=== PATIENT | female | born 1945 | race Caucasian/White ===

== ENCOUNTER → 2016-10-29 | Outpatient (CLI) | payer BC ==
[~2016-10-29] MED LIST: ACET-1256 PO; CHOL100027 PO; MULT-506 PO; ZCR20
--- NOTE | 2016-10-29 12:36 | MAMMOGRAPHY REPORT ---
BILATERAL DIGITAL SCREENING MAMMOGRAM WITH CAD: 10/29/2016 CLINICAL HISTORY: Routine screening. Patient has no complaints. TECHNIQUE: Bilateral CC and MLO views were obtained. Current study was also evaluated with a Comput er Aided Detection (CAD) system. COMPARISON: Comparison is made to exams dated: 10/26/2015 mammogram, 10/25/2014 mammogram, 10/22/20 13 mammogram, 04/18/2012 ultrasound, 04/10/2010 mammogram - [facility], and 9. BREAST COMPOSITION: There are scattered areas of fibroglandular density in both breasts. FINDINGS: There are stable benign rim calcifications and punctate microcalcifications in the breasts . Stable asymmetry in the lateral left breast. No suspicious mass, architectural distortion or clu ster of suspicious microcalcifications is seen. IMPRESSION: ACR BI-RADS CATEGORY 1: NEGATIVE There is no mammographic evidence of malignancy. A 1 year screening mammogram is recommended. The p atient will receive written notification of the results. Approximately 10% of breast cancers are not detected with mammography. A negative mammographic repor t should not delay biopsy if a clinically suggestive mass is present. Zo Jones M.D. ay/:10/29/2016 11:04:51 Pupil Personnel Services Director: Evita MARSHALL(Rakesh)(Radha)(BD), [facility] letter sent: Normal 1/2 BI-RADS Code: ACR BI-RADS Category 1: Negative
== END | disposition home or self-care (01) ==
LOC: C.MAMM 09:10
PROVIDERS: ATTEND Obstetrics & Gynecology
DX: Z12.31 Encounter for screening mammogram for malignant neoplasm of breast (principal)

== ENCOUNTER → 2016-12-14 | Outpatient (CLI) | payer BC ==
[2016-12-14 14:45] LABS: CHOLESTEROL/HDL RATIO 2.2
== END | disposition home or self-care (01) ==
LOC: C.LABBC 09:35
PROVIDERS: ATTEND Nurse Practitioner Adult Health
DX: E78.00 Pure hypercholesterolemia, unspecified (principal)

== ENCOUNTER → 2016-12-24 | Outpatient (CLI) | payer BC ==
--- NOTE | 2017-01-18 11:17 | CODING QUERY NO DIAGNOSIS ---
TREATMENT RENDERED WITHOUT A DIAGNOSIS DATE OF SERVICE: 12/24/15 To promote full compliance with coding requirements relating to patient care, physician participation is requested in all cases of death surveys coder uncertainty. Please assist us with providing a diagnosis/symptom for the test(s) below: A diagnosis/symptom was not documented on your Order. A valid diagnosis/symptom is required to bill all insurances. Please remember that we are unable to code a diagnosis of rule out, probable, possible, questionable, or suspected. Tests that require a diagnosis: * PAP SMEAR-AUTOMATED SCREENI DIAGNOSIS: Provider Signature: Date: Thank you Smiley Momin Health Information Management Once completed, please kindly fax back to [phone] For questions please call [phone]
== END | disposition home or self-care (01) ==
LOC: C.PAPS 11:49
PROVIDERS: ATTEND Obstetrics & Gynecology
DX: Z12.4 Encounter for screening for malignant neoplasm of cervix (principal)

== ENCOUNTER → 2017-07-30 | Outpatient (CLI) | payer BC ==
--- NOTE | 2017-07-30 14:45 | DIAGNOSTIC IMAGING REPORT ---
Brain MRI WITHOUT CONTRAST HISTORY: R51 [id number] Visual changes [id number] TECHNIQUE: Multiplanar multisequence MRI of the brain was performed without the use of contrast. COMPARISON STUDY: Brain MRI 09/19/2015. FINDINGS: There are no areas of restricted diffusion to suggest acute infarction. The midline structures are intact. Chronic right mastoid effusion, unchanged. Moderate mucosal thickening within the left maxillary sinus with a small fluid level. This has progressed. Mild mucosal thickening within the ethmoid air cells. The left mastoid air cells are clear. The orbits are unremarkable. Mild atrophic changes within the brain. Multiple scattered foci of T2 hyperintensity seen within the white matter of the supratentorial brain. This is nonspecific but favors moderate microvascular ischemic change. This is similar to the prior study. There is no mass, hematoma, midline shift. The major vascular flow-voids at the skull base are well maintained. IMPRESSION: 1. No acute intracranial abnormality. 2. Scattered foci of T2 hyperintensity seen within the periventricular and subcortical white matter are nonspecific but favor microvascular ischemic change. This is not suitably change. 3. Chronic right mastoid effusion, unchanged. 4. Moderate acute on chronic left maxillary sinusitis. Electronically signed by: Brendon Rodríguez M.D. 07/30/2017 2:44 PM Dictated Date/Time: 07/30/2017 2:33 PM
== END | disposition home or self-care (01) ==
LOC: C.MRI 13:37
PROVIDERS: ATTEND Nurse Practitioner Family
DX: R51 Headache (principal); H53.9 Unspecified visual disturbance; J01.01 Acute recurrent maxillary sinusitis

== ENCOUNTER → 2017-09-24 | Outpatient (CLI) | payer BC ==
[2017-09-24 16:56] LABS: BASO % 0.6 %; BASO ABS # 0.05 K/uL (0-0.2); COMPLETE YES; EOS % 2.4 %; HEMATOCRIT 39.2 % (37-47); IG% 0.2 %; LYMPH % 25.8 %; LYMPH ABS # 2.32 K/uL (1.2-3.4); MEAN CELL VOLUME 91.8 fL (80-100); MEAN CORPUSCULAR HEMOGLOBIN 30.7 pg (25-34); MEAN CORPUSCULAR HGB CONC 33.4 g/dl (32-36); MEAN PLATELET VOLUME 10.6 fL (7.4-10.4); MONO % 6.3 %; NEUT % 64.7 %; PLATELET COUNT 280 K/uL (130-400); RED BLOOD COUNT 4.27 M/uL (4.2-5.4); WHITE BLOOD COUNT 8.99 K/uL (4.8-10.8)
[2017-09-24 17:06] LABS: ALT/SGPT 20 U/L (12-78); AST/SGOT 17 U/L (15-37); BLOOD UREA NITROGEN 10 mg/dl (7-18); BUN/CREATININE RATIO 13.2 (10-20); C-REACTIVE PROTEIN 1.27 mg/dl (0-0.29); CALCIUM 8.6 mg/dl (8.5-10.1); CARBON DIOXIDE 28 mmol/L (21-32); CHLORIDE 106 mmol/L (98-107); CREATININE 0.72 mg/dl (0.60-1.20); GLUCOSE 86 mg/dl (70-99); POTASSIUM 3.6 mmol/L (3.5-5.1); SODIUM 141 mmol/L (136-145); URIC ACID 3.5 mg/dl (2.6-7.2)
[2017-09-24 17:16] LABS: ALB/GLOB RATIO 0.9 (0.9-2); ALKALINE PHOSPHATASE 129 U/L (45-117); RHEUMATOID FACTOR < 10.0 U/mL (0-15)
[2017-09-24 17:46] LABS: LYME DISEASE AB IGG NEG (NEG)
[2017-09-24 17:48] LABS: LYME DISEASE AB IGM EQUIVOCAL (NEG)
== END | disposition home or self-care (01) ==
LOC: C.LABBC 14:28
PROVIDERS: ATTEND Nurse Practitioner Family
DX: M25.50 Pain in unspecified joint (principal); E55.9 Vitamin D deficiency, unspecified

== ENCOUNTER → 2017-10-31 | Outpatient (CLI) | payer BC ==
--- NOTE | 2017-11-01 14:37 | MAMMOGRAPHY REPORT ---
BILATERAL DIGITAL SCREENING MAMMOGRAM TOMOSYNTHESIS WITH CAD: 10/31/2017 CLINICAL HISTORY: Routine screening. Patient has no complaints. TECHNIQUE: Breast tomosynthesis in addition to standard 2D mammography was performed. Current study was also evaluated with a Computer Aided Detection (CAD) system. COMPARISON: Comparison is made to exams dated: 10/29/2016 mammogram, 10/26/2015 mammogram, 10/25/2014 mammogram, 10/22/2013 mammogram, 10/20/2012 mammogram, and 04/18/2012 mammogram - [facility]. BREAST COMPOSITION: There are scattered areas of fibroglandular density in both breasts. FINDINGS: No suspicious masses, calcifications, or areas of architectural distortion are noted in ei ther breast. There has been no significant interval change compared to prior exams. Scattered bilater al benign-appearing calcifications are not significantly changed. IMPRESSION: ACR BI-RADS CATEGORY 2: BENIGN There is no mammographic evidence of malignancy. A 1 year screening mammogram is recommended. The pa tient will receive written notification of the results. Approximately 10% of breast cancers are not detected with mammography. A negative mammographic report should not delay biopsy if a clinically suggestive mass is present. Sierra Mattson M.D. /:10/31/2017 12:37:46 Sole Ruffer: Evita GARCIA)Ramana)(BD), [facility] letter sent: Normal 1/2 BI-RADS Code: ACR BI-RADS Category 2: Benign
== END | disposition home or self-care (01) ==
LOC: C.MAMM 09:07
PROVIDERS: ATTEND Nurse Practitioner Family
DX: Z12.31 Encounter for screening mammogram for malignant neoplasm of breast (principal)

== ENCOUNTER → 2017-12-27 | Outpatient (CLI) | payer BC ==
[~2017-12-27] MED LIST changes: -ACET-1256 PO; +ATOR-22 PO; +CHN/1 PO; -ZCR20
== END | disposition home or self-care (01) ==
LOC: C.PAPS 13:04
PROVIDERS: ATTEND Obstetrics & Gynecology
DX: Z00.00 Encounter for general adult medical examination without abnormal findings (principal); N95.8 Other specified menopausal and perimenopausal disorders

== ENCOUNTER → 2018-02-25 | Outpatient (CLI) | payer BC ==
[2018-02-25 11:03] LABS: BASO % 0.5 %; BASO ABS # 0.04 K/uL (0-0.2); EOS % 3.4 %; EOS ABS # 0.25 K/uL (0-0.5); HEMATOCRIT 41.6 % (37-47); IG# 0.01 K/uL (0.00-0.02); LYMPH % 36.2 %; LYMPH ABS # 2.67 K/uL (1.2-3.4); MEAN CELL VOLUME 90.2 fL (80-100); MEAN CORPUSCULAR HEMOGLOBIN 30.4 pg (25-34); MEAN CORPUSCULAR HGB CONC 33.7 g/dl (32-36); MEAN PLATELET VOLUME 10.4 fL (7.4-10.4); MONO % 7.2 %; MONO ABS # 0.53 K/uL (0.11-0.59); NEUT % 52.6 %; NEUT ABS # 3.87 K/uL (1.4-6.5); PLATELET COUNT 319 K/uL (130-400); RED CELL DISTRIBUTION WIDTH CV 14.8 % (11.5-14.5); RED CELL DISTRIBUTION WIDTH SD 48.6 fL (36.4-46.3); WHITE BLOOD COUNT 7.37 K/uL (4.8-10.8)
[2018-02-25 11:38] LABS: ALBUMIN 3.4 gm/dl (3.4-5.0); ALT/SGPT 22 U/L (12-78); AST/SGOT 19 U/L (15-37); BLOOD UREA NITROGEN 11 mg/dl (7-18); CALCIUM 8.4 mg/dl (8.5-10.1); CARBON DIOXIDE 26 mmol/L (21-32); CHOLESTEROL 182 mg/dl (0-200); CREATININE 0.76 mg/dl (0.60-1.20); GLUCOSE 90 mg/dl (70-99); POTASSIUM 3.9 mmol/L (3.5-5.1); SODIUM 141 mmol/L (136-145)
[2018-02-25 11:45] LABS: ALKALINE PHOSPHATASE 119 U/L (45-117); LDL CHOLESTEROL CALCULATED 94 mg/dl; TOTAL PROTEIN 7.1 gm/dl (6.4-8.2)
== END | disposition home or self-care (01) ==
LOC: C.LABBC 08:24
PROVIDERS: ATTEND Nurse Practitioner Family
DX: E78.00 Pure hypercholesterolemia, unspecified (principal); M85.80 Other specified disorders of bone density and structure, unspecified site; R51 Headache; J44.9 Chronic obstructive pulmonary disease, unspecified; E55.9 Vitamin D deficiency, unspecified

== ENCOUNTER → 2018-03-14 | Outpatient (CLI) | payer BC | END | disposition home or self-care (01) | LOC: C.LABBC 09:38 | PROVIDERS: ATTEND Nurse Practitioner Family | DX: M25.50 Pain in unspecified joint (principal) ==

== ENCOUNTER → 2018-05-26 | Outpatient (CLI) | payer BC ==
[~2018-05-26] MED LIST changes: +AMIT25TA9 PO; -ATOR-22 PO; +MELO7.5T6 PO; +OXYC-737 PO
[2018-05-26 16:07] LABS: BASO % 0.4 %; BASO ABS # 0.03 K/uL (0-0.2); EOS % 2.7 %; EOS ABS # 0.19 K/uL (0-0.5); HEMATOCRIT 42.3 % (37-47); HEMOGLOBIN 14.2 g/dL (12.0-16.0); IG# 0.01 K/uL (0.00-0.02); LYMPH % 26.6 %; LYMPH ABS # 1.86 K/uL (1.2-3.4); MEAN CELL VOLUME 91.6 fL (80-100); MEAN CORPUSCULAR HEMOGLOBIN 30.7 pg (25-34); MEAN CORPUSCULAR HGB CONC 33.6 g/dl (32-36); MEAN PLATELET VOLUME 10.1 fL (7.4-10.4); MONO % 7.7 %; MONO ABS # 0.54 K/uL (0.11-0.59); NEUT % 62.5 %; NEUT ABS # 4.36 K/uL (1.4-6.5); PLATELET COUNT 283 K/uL (130-400); RED CELL DISTRIBUTION WIDTH CV 14.6 % (11.5-14.5); RED CELL DISTRIBUTION WIDTH SD 49.4 fL (36.4-46.3); WHITE BLOOD COUNT 6.99 K/uL (4.8-10.8)
[2018-05-26 16:14] LABS: BLOOD UREA NITROGEN 10 mg/dl (7-18); CALCIUM 9.1 mg/dl (8.5-10.1); CARBON DIOXIDE 29 mmol/L (21-32); CREATININE 0.65 mg/dl (0.60-1.20); GLUCOSE 97 mg/dl (70-99); POTASSIUM 4.5 mmol/L (3.5-5.1); SODIUM 139 mmol/L (136-145)
[2018-05-26 16:20] LABS: INR 0.9 (0.9-1.1); PTT PATIENT 26.1 SECONDS (21.0-31.0)
--- NOTE | 2018-05-26 18:09 | DIAGNOSTIC IMAGING REPORT ---
TWO VIEW CHEST CLINICAL HISTORY: Preoperative examination. FINDINGS: PA and lateral chest radiographs are compared to study dated 06/18/2015. The cardiomediastinal silhouette is unremarkable noting atherosclerotic calcification of the thoracic aorta. The lungs and pleural spaces are clear. There is no pneumothorax. The skeletal structures are osteopenic. The bony thorax appears intact. IMPRESSION: No active disease in the chest. Electronically signed by: Luis Ireland M.D. 05/26/2018 6:07 PM Dictated Date/Time: 05/26/2018 6:07 PM
== END | disposition home or self-care (01) ==
LOC: C.RAD 12:00
PROVIDERS: ATTEND Orthopaedic Surgery Sports Medicine
DX: Z01.812 Encounter for preprocedural laboratory examination (principal); Z01.810 Encounter for preprocedural cardiovascular examination

== ENCOUNTER 2018-06-19 05:01 | Inpatient (IN) | payer BC, OTHER ==
[2018-05-26 07:32] VITALS: BMI 27.0
[2018-05-26 15:12] VITALS: BMI 27.0
--- NOTE | 2018-05-26 15:21 | PAT Medication Instructions ---
Service Date May 26, 2018. Current Home Medication List Amitriptyline Hcl (Elavil), 25 MG PO HS Cholecalciferol (Vitamin D 1000 Unit), 2,000 INTER.UNIT PO QAM Meloxicam (Mobic), 7.5 MG PO BID Multivitamin (Multivitamin), 1 TAB PO QAM Varenicline (Chantix), 1 MG PO DIRECTED Medication Instructions For Your Scheduled Surgery - Hold the following medications 10 days prior to surgery: Meloxicam (Mobic), 7.5 MG PO BID - Hold the following medications the morning of surgery: Cholecalciferol (Vitamin D 1000 Unit), 2,000 INTER.UNIT PO QAM Multivitamin (Multivitamin), 1 TAB PO QAM Varenicline (Chantix), 1 MG PO DIRECTED (if still taking) - Take the following medications as scheduled the night before surgery--THEN NOTHING TO EAT OR DRINK AFTER MIDNIGHT: Amitriptyline Hcl (Elavil), 25 MG PO HS If you have any questions please call us at [phone] or [phone] or [phone]
--- NOTE | 2018-06-10 14:52 | HISTORY & PHYSICAL EXAMINATION ---
DATE OF ADMISSION: 06/19/2018 CHIEF COMPLAINT: Left persistent hip and groin pain. HISTORY OF PRESENT ILLNESS: A 73-year-old white female referred by my partner Dr. Duque and Elisa for surgical treatment of her left hip. She has a several-month history of markedly increasing left hip pain and discomfort. She describes lateral hip pain, groin pain and thigh pain. She has been through extensive conservative treatment including multiple different anti-inflammatories as well as an intraarticular hip joint injection provided just very temporary relief. Over the past several months, she has had more and more trouble with weightbearing. The more she walks, the more it hurts. She was initially seen by Dr. Duque who referred to Dr. Pérez for possible spine etiology. He did not feel this is coming from her spine and felt it was more coming from her hip. She now would like to proceed with definitive treatment. She does have a history of multiple joint aches and pains and been on Mobic with minimal relief. PAST MEDICAL HISTORY: 1. Arthritis. 2. History of smoking, on Chantix. PAST SURGICAL HISTORY: Include: 1. Bilateral ovarian resection. 2. Septoplasty. ALLERGIES: MORPHINE, CIPRO, ERYTHROMYCIN. CURRENT MEDICINES: 1. Mobic 75 mg twice a day. 2. Amitriptyline 25 mg. 3. Oxycodone p.r.n. 4. Chantix. 5. Multivitamin. 6. Vitamin D. 7. Vitamin C. SOCIAL HISTORY: A 73-year-old female. She is from [place]. She is . She does have a smoking history and is on Chantix. FAMILY HISTORY: Noncontributory. REVIEW OF SYSTEMS: Negative for diabetes, neurologic problems, vascular problems, or bleeding disorders. No chest pain, no shortness of breath. No history of DVT or PE. PHYSICAL EXAMINATION: GENERAL: Reveals a pleasant, middle-aged female. Looks to be in pretty good health. HEENT: Benign. NECK: Supple. No lymphadenopathy. LUNGS: Clear to auscultation. HEART: Has a regular rate and rhythm. ABDOMEN: Soft, nontender, nondistended. EXTREMITIES: Grossly neurovascularly intact except as follows: Examination of left hip and leg reveals patient walks with an antalgic gait. Leg lengths clinically appear pretty equal. She does have significant pain with any attempted hip internal rotation. Minimal pain with external rotation. Negative straight leg raise. She is neurologically intact. X-RAYS: X-ray of left hip was reviewed. It shows a moderately advanced hip arthritis. She still has a little bit of superior joint space remaining. She does have some slight cystic changes in the acetabulum and osteophytes of the lateral aspect of the femoral head. ASSESSMENT: A 73-year-old female with several-month history of increasing left hip pain and discomfort, unresponsive to conservative treatment. She does have moderate hip arthritis and appears like a lot of this pain is coming from her hip. I certainly cannot be certain of that. She has failed conservative treatment. PLAN: We discussed treatment options and she would like to have her left hip replaced. We will take her to the operating room and do a left total hip replacement. The risks and benefits of this procedure was explained to the patient including but not limited to DVT, PE, , infection, neurological injury, vascular injury, bleeding problem, pain, limited range of motion, stiffness, failure to relieve symptoms, incomplete relief of symptoms, need for further surgery in the future, fracture, leg length inequality, nerve palsy, and incomplete relief of symptoms. Patient understands and desires to proceed. Informed consent was obtained. As far as discharge plans, she is planning to be discharged to home with some home health. She knows to hold her Mobic beforehand. She is a smoker, so she might need a patch in the hospital. I will see her back in 2 weeks postop.
[2018-06-19] VITALS (26 sets, daily range): BP systolic 116–169; BP diastolic 70–83; PULSE 80–101; TEMP 35.7–37.5; O2SAT 94–100; Ht 162.6 cm; Wt 72.3 kg
[~2018-06-19] VITALS: Ht 162.6 cm; Wt 72.3 kg
[~2018-06-19 05:01] MED LIST changes: -OXYC-737 PO
[2018-06-19] MEDS ORDERED: ACETAMINOPHEN 500 MG TAB PO SCH (06:00)
[2018-06-19] MEDS ORDERED: LACTATED RINGER'S 1000ML 500 ML IV SCH (06:00)
[2018-06-19] MEDS ORDERED: METOCLOPRAMIDE HCL 10 MG TAB PO SCH (06:00)
[2018-06-19] MEDS ORDERED: FAMOTIDINE 20 MG TAB PO SCH (06:00)
[2018-06-19] MEDS ORDERED: LACTATED RINGER'S 1000ML IV SCH (06:00)
[2018-06-19] MEDS ORDERED: LACTATED RINGER'S 1000ML 1,000 ML IV SCH (06:00)
[2018-06-19] MEDS ORDERED: CEFAZOLIN 2000MG IV PUSH 15 ML IV SCH (06:00)
[2018-06-19] MEDS ORDERED: TRANEXAMIC ACID INJ 1,000 MG x 1 Bag Intra-Op IV SCH ×2 (06:00)
[2018-06-19] MEDS ORDERED: GABAPENTIN 300 MG CAP PO SCH (06:00)
[2018-06-19] MEDS ORDERED: BUPIVACAINE/EPINEPHRINE 0.5% MPF 1:200,000 30 ML VIAL ONE (06:26)
[2018-06-19] MEDS ORDERED: BACITRACIN 50000 UNIT VIAL ONE (06:26)
[2018-06-19] MEDS ORDERED: BUPIVACAINE 0.5 % 5 MG/1 ML PF 10ML VIAL ONE (06:34)
[2018-06-19] MEDS ORDERED: PROPOFOL IV EMULSION 10 MG/ML 20 ML VIAL ONE ×2 (06:42→07:55)
[2018-06-19] MEDS ORDERED: FENTANYL CITRATE INJ 50 MCG/1 ML 2 ML VIAL ONE (06:43)
[2018-06-19] MEDS ORDERED: MIDAZOLAM HCL 1 MG/ML 2ML VIAL ONE (06:43)
[2018-06-19] MEDS ORDERED: MoRPHine SULFATE PF 1 MG/ML 10 ML AMP/VIAL ONE (06:44)
[2018-06-19] MEDS ORDERED: SCOPOLAMINE 1.5 MG TDSY TD ONE ×2 (06:48→07:15)
--- NOTE | 2018-06-19 06:52 | History & Physical Bridge Note ---
H&P Re-Evaluation Bridge Note: I have examined the patient, reviewed the History & Physical and in the interval since the performance of the History & Physical I have noted the following changes of clinical significance: No changes noted
[2018-06-19] MEDS ORDERED: LACTATED RINGER'S 1000ML 500 ML IV PRN (07:11)
[2018-06-19] MEDS ORDERED: NALOXONE HCL INJ 1 MG in SODIUM CHLORIDE 0.9% 1000ML 1,000 ML IV PRN ×4 (07:11)
[2018-06-19] MEDS ORDERED: SODIUM CHLORIDE 0.9% 1000ML 1,000 ML IV PRN (07:11)
[2018-06-19] MEDS ORDERED: NALOXONE HCL INJ 0.08 MG in SYRINGE 1.8 ML IV PRN (07:11)
[2018-06-19] MEDS ORDERED: NALBUPHINE HCL INJ 10 MG/ML 1ML AMP IV PRN (07:15)
[2018-06-19] MEDS ORDERED: KETOROLAC TROMETHAMINE 30 MG/ML VIAL IV. PRN (07:15)
[2018-06-19] MEDS ORDERED: DiphenhydrAMINE HCL 50 MG/ML VIAL IV PRN (07:15)
[2018-06-19] MEDS ORDERED: ATROPINE SULFATE 0.1 MG/ML 5ML SYR IV PRN (07:15)
[2018-06-19] MEDS ORDERED: MoRPHine SULFATE PF 1 MG/ML 10 ML AMP/VIAL EPI PRN (07:15)
[2018-06-19] MEDS ORDERED: PHENYLEPHRINE 100MCG/ML 5ML SYR IV PRN (07:15)
[2018-06-19] MEDS ORDERED: EpHEDrine SULFATE INJ 50 MG/ML AMP IV PRN ×2 (07:15)
[2018-06-19] MEDS ORDERED: PROMETHAZINE HCL INJ 6.25 MG in SODIUM CHLORIDE 0.9% 50ML 50 ML IV PRN (07:15)
[2018-06-19] MEDS ORDERED: ONDANSETRON INJ 2 MG/ML 2 ML VIAL IV PRN ×3 (07:15→08:30)
[2018-06-19] MEDS ORDERED: NALOXONE HCL 0.4 MG/1 ML VIAL/CARP IV PRN (07:15)
[2018-06-19] MEDS ORDERED: NO NARCOTICS OR SEDATIVES SCH (07:15)
[2018-06-19] MEDS ORDERED: MEPERIDINE HCL 25 MG/ML CARP IV PRN ×2 (07:15)
[2018-06-19] MEDS ORDERED: KETOROLAC TROMETHAMINE 15 MG/ML VIAL IV. PRN (07:15)
[2018-06-19] MEDS ORDERED: ONDANSETRON INJ 2 MG/ML 2 ML VIAL ONE (07:56)
--- NOTE | 2018-06-19 08:18 | [facility] Post Operative Brief Note ---
Immediate Operative Summary Operative Date Jun 19, 2018. Pre-Operative Diagnosis Left Hip Osteoarthritis Post-Operative Diagnosis same as preop Procedure(s) Performed Left Total Hip Arthroplasty Uncemented Surgeon Dr. Bosch [facility] [employer] Surgeon(s) Javier Mckeon PA-C Estimated Blood Loss 200 ml Findings Consistent with Post-Op Diagnosis Fluids (cc crystalloids) 1800 cc Specimens A. Left Femoral Head Anesthesia Type Spinal MAC Complication(s) none Disposition Accompanied Pt To Recover: yes Disposition: Recovery Room / PACU Overlapping Procedure I was present for: the critical portions of procedure. I was immediately available: during the entire case
[2018-06-19] MEDS ORDERED: SILVER SULFADIAZINE 1% CR 50 GM JAR EXT PRN (08:30)
[2018-06-19] MEDS ORDERED: MAGNESIUM HYDROXIDE SUSP 30 ML UDC PO PRN (08:30)
[2018-06-19] MEDS ORDERED: BISACODYL 10 MG SUPP PR PRN (08:30)
[2018-06-19] MEDS ORDERED: METOCLOPRAMIDE HCL INJ 5 MG/ML 2 ML VIAL IV PRN (08:30)
[2018-06-19] MEDS ORDERED: OXYCODONE HCL IR 5 MG TAB (IMMEDIATE RELEASE) PO PRN (08:30)
[2018-06-19] MEDS ORDERED: ZOLPIDEM TARTRATE 5 MG TAB PO PRN (08:30)
[2018-06-19] MEDS ORDERED: HYDROmorphone INJ 0.5 MG/0.5 ML SYR IV PRN (08:30)
[2018-06-19] MEDS ORDERED: ALUMINUM/MAGNESIUM/SIMETH (MAALOX MAX) 30 ML UDC PO PRN (08:30)
[2018-06-19] MEDS ORDERED: MULTIVITAMIN TAB PO SCH (09:00)
--- NOTE | 2018-06-19 09:14 | DIAGNOSTIC IMAGING REPORT ---
L PELVIS/UNILATERAL HIP 1 VIEW CLINICAL HISTORY: Postoperative evaluation. COMPARISON: Left hip radiograph June 11, 2018. FINDINGS: Alignment of the total left hip arthroplasty is anatomic. There is no fracture or unexpected radiopaque foreign body. [address] are in place. There are skin josefina. IMPRESSION: Expected findings following total left hip arthroplasty. Electronically signed by: Sherif Ramirez M.D. 06/19/2018 9:13 AM Dictated Date/Time: 06/19/2018 9:13 AM
--- NOTE | 2018-06-19 10:09 | Anesthesiology Progress Note ---
Anesthesia Post Op Note Date & Time Jun 19, 2018 at 10:09 Vital Signs Pain Intensity: 0 Vital Signs Past 12 Hours Date Time Temp Pulse Resp B/P (MAP) Pulse Ox O2 Delivery O2 Flow Rate FiO2 06/19/18 09:55 99 Nasal Cannula 2.0 06/19/18 09:49 86 17 145/82 (103) 100 Nasal Cannula 2.0 06/19/18 09:20 36.4 88 18 116/70 (85) 99 Nasal Cannula 2.0 06/19/18 09:20 18 99 06/19/18 09:07 86 22 99 06/19/18 09:07 86 22 06/19/18 09:05 129/58 06/19/18 09:02 85 14 100 06/19/18 09:02 84 14 06/19/18 09:00 115/57 06/19/18 08:58 36.5 97 Nasal Cannula 2 06/19/18 08:57 82 16 99 06/19/18 08:57 83 16 06/19/18 08:56 82 17 99 06/19/18 08:56 83 17 06/19/18 08:55 107/76 06/19/18 08:51 87 20 100 06/19/18 08:51 88 20 06/19/18 08:50 115/73 06/19/18 08:46 90 13 06/19/18 08:46 91 13 127/62 99 06/19/18 08:41 85 14 06/19/18 08:41 85 14 100 06/19/18 08:40 84 12 06/19/18 08:40 85 12 125/72 100 06/19/18 08:35 88 15 06/19/18 08:35 89 15 123/56 100 06/19/18 08:30 90 16 128/54 100 06/19/18 08:30 90 16 06/19/18 08:25 97 17 109/58 100 06/19/18 08:25 96 17 06/19/18 08:20 36.2 92 16 108/50 99 Oxymask 10 06/19/18 08:20 92 12 06/19/18 08:20 92 12 108/50 99 06/19/18 05:33 36.5 83 20 169/83 97 Room Air Notes Mental Status: alert / awake / arousable, participated in evaluation Pt Amnestic to Procedure: Yes Nausea / Vomiting: adequately controlled Pain: adequately controlled Airway Patency, RR, SpO2: stable & adequate BP & HR: stable & adequate Hydration State: stable & adequate Anesthetic Complications: no major complications apparent
[2018-06-19] MEDS: DOCUSATE SODIUM 100 MG CAP PO SCH ×2 (10:32→21:14)
[2018-06-19] MEDS: D5W AND 1/2NSS + 20MEQ KCL 1,000 ML IV SCH ×2 (10:32→20:35)
[2018-06-19] MEDS: PANTOprazole SOD 40 MG TAB PO SCH (10:33)
[2018-06-19] MEDS: MULTIVITAMIN TAB PO SCH (10:33)
[2018-06-19] MEDS: ASPIRIN 81 MG ECTAB PO SCH ×2 (10:33→21:13)
[2018-06-19] MEDS: CHOLECALCIFEROL 1000 INTER.UNIT TAB PO SCH (10:34)
[2018-06-19] MEDS: KETOROLAC TROMETHAMINE 15 MG/ML VIAL IV. SCH ×3 (10:43→21:15)
[2018-06-19] MEDS ORDERED: VARENICLINE (CHANTIX) 1 MG TAB PO ONE (12:15)
[2018-06-19] MEDS: FERROUS GLUCONATE 324 MG TAB PO SCH ×2 (12:30→17:40)
[2018-06-19] MEDS: ACETAMINOPHEN 500 MG TAB PO SCH ×2 (13:57→21:15)
[2018-06-19] MEDS ORDERED: TRANEXAMIC ACID INJ 1,000 MG in SODIUM CHLORIDE 0.9% 100ML 100 ML IV ONE (14:15)
[2018-06-19] MEDS: CEFAZOLIN IV 1,000 MG in SYRINGE 0 ML IV SCH ×2 (14:21→21:18)
[2018-06-19] MEDS ORDERED: CEFAZOLIN IV 1,000 MG in DEXTROSE 5% 50ML 50 ML IV SCH (15:00)
--- NOTE | 2018-06-19 15:29 | PROGRESS NOTE ---
DATE: 06/19/2018 SUBJECTIVE: A 73-year-old female postop from a left hip replacement. She is doing well. Minimal pain. No chest pain or shortness of breath. Feeling a little bit nauseated. OBJECTIVE: VITAL SIGNS: Temperature 36.3. Stable. GENERAL: Reveals a pleasant, middle-aged female. She is sitting up on bed and looks reasonably comfortable. I did wake her when I went in the room this afternoon. LUNGS: Clear to auscultation. HEART: Regular rate and rhythm. ABDOMEN: Soft, nontender, nondistended. EXTREMITIES: Grossly neurovascularly intact except as follows: Examination of the left lower extremity reveals the leg lengths to be equal. Hip is located. Dressing is clean, dry and intact. The thigh is soft and supple. She can dorsiflex and plantarflex her foot appropriately. X-RAYS: X-ray of the left hip from recovery room reviewed. Shows a left uncemented total hip arthroplasty. Components looked to be in good position. No signs of problems. ASSESSMENT: A 73-year-old female postop from a left hip replacement, doing well. Her pain is controlled. Hip is located. She is neurologically intact. PLAN: 1. DVT prophylaxis including thigh-high TEDs, SCDs, and aspirin twice a day. 2. PT/OT. Weight bear as tolerated. Left total hip protocol. 3. Pain control, doing well with current pain regimen. 4. IV antibiotics x24 hours. 5. Disposition: Plan to discharge to home with some home health once adequately recovered.
[2018-06-19] MEDS: CHECK SCOPOLAMINE PATCH PLACEMENT SCH (16:29)
--- NOTE | 2018-06-19 17:08 | OPERATIVE REPORT ---
DATE OF OPERATION: 06/19/2018 SURGEON: Anshul Bosch MD PUMP STITCHER: LIZ Dunham PREOPERATIVE DIAGNOSIS: Left hip degenerative joint disease. POSTOPERATIVE DIAGNOSIS: Same. PROCEDURE PERFORMED: Left uncemented ceramic on highly cross-linked polyethylene total hip arthroplasty. COMPLICATIONS: None. ESTIMATED BLOOD LOSS: 200 mL. FLUID REPLACEMENT: 1800 mL crystalloid. ANESTHESIA: Spinal. DRAINS: None. SPECIMENS: Left femoral head sent for pathology. OPERATIVE INDICATIONS: Patient is a 73-year-old female who has had about a 6-month history of markedly increased left hip pain and discomfort associated with progressive loss of her joint space on x-ray. She was seen by my partner, Dr. Duque as well as my spine partner, Dr. Pérez. We thought all of her pain was coming from her hip. She had an intraarticular hip joint injection, which provided her temporary relief. She failed all conservative care. She elected to proceed with a total hip arthroplasty. OPERATIVE FINDINGS: Noted advanced hip arthritis. She did have a grade 4 disease. Not much eburnation and not any major osteophytes. She did have a significant joint effusion. There are no signs of infection. OPERATIVE IMPLANTS: Consisted of: 1. Biomet G7 size 50 mm acetabular shell. 2. 6.5 cancellous acetabular screws, 1 at 35 mm length and 1 at 20 mm in length. 3. An apex hole eliminator. 4. Highly cross-linked polyethylene liner with 50 mm outer diameter and 32 mm inner diameter. 5. DePuy size 11 KLA Corail femoral stem. 6. A +5/32 mm ceramic articular ball. OPERATIVE PROCEDURE: Patient was taken to the operating room, identified, and placed on the operating table in supine position. All contact areas were appropriately padded. IV antibiotics provided by anesthesia team. A spinal anesthetic had been implemented in the holding area. Ernst catheter was placed in sterile fashion. The patient was then placed in the right lateral decubitus position. An axillary roll was placed. [facility] hip positioner was used for positioning. The left hip and leg were then prepped and draped in the usual sterile fashion. A posterolateral approach to the left hip was then performed through a curvilinear incision centered over the greater trochanter. Sharp dissection was carried down through subcutaneous tissues down to the level of the IT band and gluteal fascia. The IT band and gluteal fascia were incised longitudinally in line with skin incisions. The underlying greater trochanteric bursa was excised. The piriformis and external rotators were tagged and taken off the posterior aspect of the hip joint capsule. Great care was taken throughout the procedure to protect the sciatic nerve at all times. Posterior capsulotomy was then performed leaving a large flap for later repair. Hip was internally rotated and dislocated. Femoral neck osteotomy cut was made with the final cut at about 4 mm above the lesser trochanter. Femoral head was removed and sent for pathology. She did have a large hip joint effusion. The femur was retracted anteriorly. Attention was then drawn to the acetabulum. The acetabulum labrum was excised. The pulvinar fat was excised. Sequential reaming of the acetabulum was then performed beginning with a size 43 and progressing up to 49. A 50 mm Biomet G7 acetabular shell was then placed in about 40 degrees of lateral opening and 20 degrees of anteversion. It was fixed with two 6.5 cancellous acetabular screws. A trial liner was placed. Attention was then drawn to the femur. The proximal femur was entered with Innov[employer] cutter followed by a canal finder. I then broached beginning with a size 7 and progressing up to an 11 until we got excellent fit at 11. A calcar reamer was used to smoothen off the calcar. I then trialed the hip, and the +5 articular ball provided full stability, full extension and external rotation, flexion to 90 degrees, internal rotation to over 70 degrees. Leg lengths seemed appropriate, and soft tissue tension seemed appropriate. I elected to place these implants. All trial implants removed. An apex hole eliminator was placed. A highly cross-linked polyethylene liner was placed. A DePuy Corail size 11 KLA/coxa vara femoral stem was impacted in position. A +5/32 mm ceramic articular ball was placed. Hip was located and once again found to be stable. Attention was then drawn toward closing. The wound was irrigated with copious amounts of pulsatile lavage solution. I did inject locally with 60 mL of 0.5% Marcaine with epinephrine. The posterior capsule and external rotators were repaired through drill holes in the posterior trochanter with #2 Ti-Cron suture. The IT band and gluteal fascia were then closed with #1 PDS suture in running fashion. The subcutaneous tissue was then closed with 2 layers, the deep layer with #1 Vicryl suture and subcutaneous tissues with 2-0 Dexon suture in a buried interrupted fashion. The skin was closed with skin josefina. Leg was then cleaned and dried and a sterile dressing with Xeroform, 4x4, sterile ABD pad, and foam tape was applied. The patient was then transferred to the recovery room in stable condition. The patient tolerated the procedure well, and there were no complications. All needle and sponge counts were correct at the end of the operation. I attest to the content of the Intraoperative Record and any orders documented therein. Any exception s are noted below.
[2018-06-19] MEDS: AMITRIPTYLINE HCL 25 MG TAB PO SCH (21:14)
[2018-06-19] MEDS: SENNA 8.6 MG TAB PO SCH (21:14)
[2018-06-19] MEDS: VARENICLINE (CHANTIX) 1 MG TAB PO SCH (21:14)
[2018-06-20] VITALS (7 sets, daily range): BP systolic 113–132; BP diastolic 68–74; PULSE 72–93; TEMP 36.9–37.6; O2SAT 92–96
[2018-06-20] MEDS ORDERED: DC INTRASPINAL MORPHINE ONE
[2018-06-20] MEDS: CHECK SCOPOLAMINE PATCH PLACEMENT SCH ×3 (00:15→16:02)
[2018-06-20] MEDS: KETOROLAC TROMETHAMINE 15 MG/ML VIAL IV. SCH ×4 (03:32→21:27)
[2018-06-20] MEDS: ACETAMINOPHEN 500 MG TAB PO SCH ×3 (05:37→21:28)
[2018-06-20 06:36] LABS: CALCIUM 8.2 mg/dl (8.5-10.1); CREATININE 0.61 mg/dl (0.60-1.20); POTASSIUM 3.8 mmol/L (3.5-5.1)
[2018-06-20 06:42] LABS: MEAN CORPUSCULAR HGB CONC 33.8 g/dl (32-36)
[2018-06-20] MEDS: D5W AND 1/2NSS + 20MEQ KCL 1,000 ML IV SCH (06:44)
[2018-06-20 07:07] LABS: HEMATOCRIT 33.3 % (37-47); HEMOGLOBIN 11.1 g/dL (12.0-16.0); MEAN CELL VOLUME 90.2 fL (80-100); MEAN CORPUSCULAR HEMOGLOBIN 30.1 pg (25-34); MEAN PLATELET VOLUME 10.9 fL (7.4-10.4); PLATELET COUNT 204 K/uL (130-400); RED CELL DISTRIBUTION WIDTH CV 14.1 % (11.5-14.5); RED CELL DISTRIBUTION WIDTH SD 46.9 fL (36.4-46.3); WHITE BLOOD COUNT 10.33 K/uL (4.8-10.8)
[2018-06-20 07:10] LABS: BASO % 0.2 %; BASO ABS # 0.02 K/uL (0-0.2); EOS % 0.7 %; EOS ABS # 0.07 K/uL (0-0.5); IG# 0.03 K/uL (0.00-0.02); LYMPH % 13.3 %; LYMPH ABS # 1.37 K/uL (1.2-3.4); MONO % 8.9 %; MONO ABS # 0.92 K/uL (0.11-0.59); NEUT % 76.6 %; NEUT ABS # 7.92 K/uL (1.4-6.5)
[2018-06-20] MEDS ORDERED: RXC5 PO (07:46)
[2018-06-20] MEDS ORDERED: ACET-24 PO (07:46)
[2018-06-20] MEDS ORDERED: ASPI-461 PO (07:46)
--- NOTE | 2018-06-20 07:47 | Discharge Instructions ---
Discharge Instructions Date of Service Jun 20, 2018. Admission Reason for Admission: Left Hip Degenerative Joint Disease Discharge Discharge Diagnosis / Problem: Left Hip Replacement Discharge Goals Goal(s): Decrease discomfort, Improve function, Increase independence, Improve disease control, Therapeutic intervention Activity Recommendations Activity Limitations: per Instructions/Follow-up section Weightbearing Status: Left weightbearing . Instructions / Follow-Up Instructions / Follow-Up ACTIVITY RECOMMENDATIONS: Physical Therapy: * Aggressive physical therapy is not usually needed. You will learn to take care of yourself safely and walk. * Follow the "Hip Precautions Instructions." * In some cases, the social media marketing analyst at the hospital will arrange to have a therapist come to your house for the first couple of weeks to help you learn these skills. * You need to practice on your own or with the help of a family member as needed. * When you learn these skills, most of the therapy can be done on your own. Home Exercise: * You were shown a series of exercises in the hospital. Do these exercises three to four times each day including the exercises you were shown in physical therapy. Walking: * Get up and walk several times each day. For the first four weeks, try not to stand or walk for more than one hour at a time. If you do stand or walk for more than one hour, you will not hurt anything, but your leg will likely swell. * As you feel comfortable, you may change from the walker or crutches to a cane and then to independent walking. MEDICATIONS: New Medicine: * You will likely be taking one or more of these medicines: 1. Oxycodone - Take, as directed, when you need it, every four to six hours to control your pain. 2. Aspirin - Thins your blood to lessen the chance of forming a blood clot. * The most common side effects of pain medicine and iron are nausea and constipation. If nausea or constipation is too much of a problem or if you have any questions about your new medicines or doses, call [facility] at . We will try to help you manage these issues. VERY IMPORTANT TO READ AND REVIEW" Pain: * The immediate post-operative period after hip replacement surgery is often quite painful. * You are given a prescription for pain medicine. You should take it, as directed, when you need it, especially before physical therapy and before going to bed. Pain that interferes with sleep is very common and can last several months. * You will likely need pain medicine for the first two to four weeks. It will not stop all of the pain. The pain will lessen and as you feel better, you may change to milder pain medicine such as Tylenol. * The most common side effects of pain medicine are nausea and constipation, so don't take more than you need. SPECIAL CARE INSTRUCTIONS: TEDs/Elastic Stockings: * The white elastic stockings help limit swelling and prevent blood clots from forming in your legs. The more you wear them, the more they work. * Wear them for six weeks. Prevention of Infection: * Take antibiotics one hour before any dental cleaning, dental work, urological procedure, gastrointestinal procedure or any invasive surgery in order to prevent your new joint from getting infected. * You may get the antibiotics from the doctor performing the procedure or you may call our office at before and we will call in a prescription to the pharmacy of your choice. Things to Watch For: * Drainage from the incision site that occurs more than one week after your surgery. * Severely increased leg pain or swelling. * Increased redness at the incision site. * Fever above 102 degrees Fahrenheit. * Unusual chest pain or shortness of breath. * Unusual pain or burning with urination. Call [facility] at with any of the above problems or if you have any questions about your medicines or recovery. FOLLOW UP VISIT: Make an appointment to see your doctor for approximately two weeks after surgery for a progress check and staple removal by calling the office at . Current Hospital Diet Patient's current hospital diet: Regular Diet Discharge Diet Recommended Diet: Regular Diet Procedures Procedures Performed: Left Total Hip Arthroplasty Uncemented Pending Studies Studies pending at discharge: no Medical Emergencies . Who to Call and When: Medical Emergencies: If at any time you feel your situation is an emergency, please call [phone] immediately. . Non-Emergent Contact Non-Emergency issues call your: Surgeon . "Provider Documentation" section prepared by Anshul Bosch. .
--- NOTE | 2018-06-20 08:05 | PROGRESS NOTE ---
DATE: 06/20/2018 SUBJECTIVE: A 73-year-old female postop day 1 from a left hip replacement. She is doing well. Pretty minimal pain. Had a good night sleep and rest. No chest pain or shortness of breath. Not feeling dizzy or lightheaded. OBJECTIVE: VITAL SIGNS: Temperature 36.9. Vital signs stable. GENERAL: Reveals a pleasant elderly female. She is sitting up in bed and talking to a friend. She looks comfortable. EXTREMITIES: Examination of left hip reveals the leg lengths to be equal. Hip is located. Thigh is soft and supple. NEUROLOGIC: She is neurologically intact. Patient can dorsiflex and plantarflex her foot appropriately. LABORATORY DATA: Hemoglobin 11.1. Hematocrit 33.3. Electrolytes are stable. ASSESSMENT: A 73-year-old female postoperative day 1 from a left hip replacement, doing well. Pain controlled. Hip is located. She is neurologically intact. PLAN: 1. DVT prophylaxis including thigh-high TEDs, SCDs and aspirin twice a day. 2. PT/OT. Weightbear as tolerated. Left total hip protocol. 3. Pain control, doing well with current pain regimen. 4. Disposition: She is planning to be discharged to home with some home health once adequately recovered.
[2018-06-20] MEDS: DOCUSATE SODIUM 100 MG CAP PO SCH ×2 (08:35→21:25)
[2018-06-20] MEDS: VARENICLINE (CHANTIX) 1 MG TAB PO SCH ×2 (08:36→21:25)
[2018-06-20] MEDS: MULTIVITAMIN TAB PO SCH (08:36)
[2018-06-20] MEDS: PANTOprazole SOD 40 MG TAB PO SCH (08:36)
[2018-06-20] MEDS: CHOLECALCIFEROL 1000 INTER.UNIT TAB PO SCH (08:36)
[2018-06-20] MEDS: FERROUS GLUCONATE 324 MG TAB PO SCH ×3 (08:36→17:45)
[2018-06-20] MEDS: ASPIRIN 81 MG ECTAB PO SCH ×2 (08:36→21:24)
[2018-06-20] MEDS: TAPENTADOL ER 50 MG TABCR PO SCH ×3 (08:38→21:27)
[2018-06-20] MEDS: SENNA 8.6 MG TAB PO SCH (21:25)
[2018-06-20] MEDS: AMITRIPTYLINE HCL 25 MG TAB PO SCH (21:26)
[2018-06-21] MEDS: CHECK SCOPOLAMINE PATCH PLACEMENT SCH (00:10)
[2018-06-21] MEDS: KETOROLAC TROMETHAMINE 15 MG/ML VIAL IV. SCH (03:45)
[2018-06-21] MEDS: ACETAMINOPHEN 500 MG TAB PO SCH (05:28)
[2018-06-21 06:02] VITALS: BP 121/69; PULSE 85; TEMP 36.9; O2SAT 94
[2018-06-21 07:59] VITALS: BP 160/70; PULSE 76; TEMP 37.2
[2018-06-21] MEDS: FERROUS GLUCONATE 324 MG TAB PO SCH (08:30)
--- NOTE | 2018-06-21 08:38 | PROGRESS NOTE ---
DATE: 06/21/2018 SUBJECTIVE: A 73-year-old female postop day 2 from a left hip replacement. She is doing well. Pain has been controlled. No chest pain or shortness of breath. Therapy went pretty well. Not feeling dizzy or lightheaded. OBJECTIVE: VITAL SIGNS: Temperature 36.9. Vital signs stable. GENERAL: This is a pleasant elderly female. Patient is lying in bed, looks pretty comfortable. EXTREMITIES: Examination of left hip reveals the leg lengths to be equal. Hip is located. Incision is clean, dry and intact. Thigh is soft and supple. She is neurologically intact. ASSESSMENT: A 73-year-old female postoperative day 2 from left hip replacement, doing well. Her pain is controlled. Hip is located. She is neurologically intact. PLAN: 1. DVT prophylaxis including thigh-high TEDs, SCDs and aspirin twice a day. 2. PT/OT. Weightbear as tolerated. Left total hip protocol. 3. Pain control, doing well with current pain regimen. 4. Disposition: Plan to discharge to home with some home health later today.
[2018-06-21] MEDS: DOCUSATE SODIUM 100 MG CAP PO SCH (08:51)
[2018-06-21] MEDS: PANTOprazole SOD 40 MG TAB PO SCH (08:53)
[2018-06-21] MEDS: VARENICLINE (CHANTIX) 1 MG TAB PO SCH (08:53)
[2018-06-21] MEDS: MULTIVITAMIN TAB PO SCH (08:53)
[2018-06-21] MEDS: CHOLECALCIFEROL 1000 INTER.UNIT TAB PO SCH (08:53)
[2018-06-21] MEDS: ASPIRIN 81 MG ECTAB PO SCH (08:53)
[2018-06-21] MEDS: TAPENTADOL ER 50 MG TABCR PO SCH (08:59)
[2018-06-21 09:10] VITALS: BP 160/70; PULSE 76; TEMP 37.2; O2SAT 94
--- NOTE | 2018-06-25 21:19 | DISCHARGE SUMMARY ---
ADMITTING PHYSICIAN AND SURGEON: Anshul Bosch MD ADMITTING DIAGNOSIS: Left hip degenerative joint disease. SURGERY PERFORMED: Left total hip arthroplasty. SECONDARY DIAGNOSES: Arthritis. History of smoking. CONSULTS: None obtained. HISTORY AND PHYSICAL EXAMINATION: Well documented in the patient's chart. HOSPITAL COURSE: The patient admitted 06/19/2018, underwent total hip arthroplasty, tolerated the procedure well. There were no complications. She was transferred to the PACU postoperatively and later to the orthopedic for further care. She was given Ancef for antibiotic prophylaxis, SHANAE stockings, SCDs and aspirin for DVT prophylaxis. Hemoglobin, hematocrit, and vital signs were monitored during her hospital stay and remained stable. There were no complications. By postoperative day 2, she was tolerating a regular diet. Pain was controlled with oral pain medicine. She was participating in physical therapy. Postop day 2, she was discharged home, set up with home health services. She was given printed discharge instructions including new prescriptions for extra strength Tylenol, aspirin, and oxycodone. Continue her home medicines. Continue physical therapy, weightbearing as tolerated, SHANAE stockings, total hip precautions. Follow up approximately 2 weeks postoperatively or sooner if any problems or concerns.
== END 2018-06-21 10:26 | disposition home health service (06) | DRG 470 ==
LOC: C.ACU 05:01 → C.3E 06:40 → ENRESERV 08:46
PROVIDERS: ADMIT Orthopaedic Surgery Sports Medicine; ATTEND Orthopaedic Surgery Sports Medicine
PROC: 0SRB04A Replacement of Left Hip Joint with Ceramic on Polyethylene Synthetic Substitute, Uncemented, Open Approach (ICD-10-PCS; principal; 2018-06-19 07:00)
DX: M16.12 Unilateral primary osteoarthritis, left hip (principal); Z87.891 Personal history of nicotine dependence; Z88.5 Allergy status to narcotic agent; Z88.1 Allergy status to other antibiotic agents

== ENCOUNTER 2021-09-19 06:40 | Observation (INO) ==
--- NOTE | 2021-07-11 15:17 | Anesthesiology Consultation ---
Date of Service July 11, 2021 Assessment & Plan (1) Encounter for pre-operative examination: Chart Review Chart Review: Acceptable Risk for Surgery (pending preop Covid testing results ) and Patient NOT seen in Pre Admission Testing -Will leave to anesthesiologist discretion if repeat CXR needed (last CXR done 07/2020- pt had Covid at time of CXR- pt tolerated left TKA without issues) Per nursing assessment 07/11/2021, patient denies any recent travel. No known Covid infection in the past 90 days. Patient is vaccinated for Covid. No known Covid positive contacts or Covid related symptoms. Preop Covid testing scheduled 07/12/21= will await results Left TKA 12/30/20= done under SAB at L3 with 1 attempt. No anesthesia issues noted per anesthesia record History Surgery Operation Date: 07/14/21 09:00 Proposed Procedures p Right Total Knee Replacement(Right) - Anshul Bosch MD Height/Weight Height: 5 ft 3.5 in Weight: 81.193 kg Allergies Allergy/AdvReac Type Severity Reaction Status Date / Time Cipro Allergy Severe muscle Verified 06/19/18 07:31 reaction ciprofloxacin Allergy Severe lower Verified 07/11/21 10:18 extremity weakness erythromycin base AdvReac Mild nausea Verified 07/11/21 10:18 levofloxacin AdvReac Mild metal Verified 07/11/21 10:18 taste in mouth morphine AdvReac Mild vomiting Verified 07/11/21 10:18 Medications Home Medications Medication Instructions Recorded Confirmed Last Taken acetaminophen 500 mg tablet 1,000 mg PO Q8H PRN tab 04/09/19 07/11/21 12/29/20 21:30 calcium carbonate 600 mg calcium 600 mg PO Q OTHER DAY tab 04/09/19 07/11/21 12/29/20 09:00 (1,500 mg) tablet multivitamin 1 tab PO QAM 04/09/19 07/11/21 12/29/20 09:00 cholecalciferol (vitamin D3) 125 2,000 units PO QAM 10/13/19 07/11/21 12/29/20 09:00 mcg (5,000 unit) capsule diclofenac sodium 1 % topical gel 4 gm TOP QID PRN 10/12/20 07/11/21 12/23/20 (Voltaren) meloxicam 7.5 mg tablet (Mobic) 7.5 mg PO BID #180 tab 10/17/20 07/11/21 12/23/20 amitriptyline 25 mg tablet 25 mg PO HS #90 tab 05/16/21 07/11/21 Unknown amino acids (Amino Acid) 2 cap PO TID 07/11/21 07/11/21 Unknown Past Medical History Medical History Cervical facet joint syndrome Hx injections/nerve burnings (07/13/20) History of COVID-19 06/2020 -- no problems at present time Hypercholesterolemia Interstitial cystitis controlled, no recent issues Osteoarthritis Past Family History Family History Sister Breast cancer Father Colorectal cancer, Onset Age: 66 Mother Cardiac disorder Denies family history of Ovarian cancer Prostate cancer Myocardial infarction Past Surgical History Surgical History H/O breast biopsy BENIGN History of appendectomy History of cataract surgery RT/LEFT History of colonoscopy History of cystoscopy History of dilation and curettage History of endoscopic sinus surgery History of hysteroscopy History of surgery ovarian wedge resection History of tooth extraction History of total hip replacement Left CELIO: 06/19/18: SAB x1 attempt at L3-L4 at [facility] S/P knee replacement 12/30/20 Dr. Anshul Bosch at [facility]- Left TKR Social History Smoking Status: Former smoker tobacco type: cigarettes Do You Dip or Chew Tobacco: No Smoking End Date: quit 2017 Hx Alcohol Use: No Hx Substance Use: No substance use type: does not use Lab Results Anesthesia Preop Results Results Anesthesia Widget: WBC 6.16 K/uL (4.8-10.8) 06/23/21 Hgb 12.7 g/dL (12.0-16.0) 06/23/21 Hct 39.3 % (37-47) 06/23/21 Plt 284 K/uL (130-400) 06/23/21 Na 141 mmol/L (136-145) 06/23/21 K 4.2 mmol/L (3.5-5.1) 06/23/21 Cl 108 mmol/L (98-107) H 06/23/21 CO2 29 mmol/L (21-32) 06/23/21 BUN 17 mg/dl (7-18) 06/23/21 Creat 0.85 mg/dl (0.6-1.2) 06/23/21 Glucose Level 80 mg/dl (70-99) 06/23/21 PT 9.9 Seconds (9.0-12.0) 06/23/21 INR 1.0 (0.9-1.1) 06/23/21 Blood Type O Positive 06/23/21 Antibody Screen NEGATIVE 06/23/21 Testing Electrocardiogram Date: 08/01/20 Findings: + NSR @ (87 bpm) Incomplete right bundle branch block. Chest X-Ray Date: 08/01/20 Hazy interstitial opacities are present at both lungs. Correlate clinically for evidence of infectious/inflammatory pneumonitis. (Pt had been diagnosed with Covid 19 at time of CXR)
--- NOTE | 2021-09-16 11:39 | History and Physical Report ---
CHIEF COMPLAINT: Persistent right knee pain and discomfort. HISTORY OF PRESENT ILLNESS: The patient is a 76-year-old white female well known to me from a previo us left knee replacement done about 8 months ago and a left hip replacement done about 3 years ago. Over the past several years, she has developed pain and discomfort in the right knee as well. It has gotten worse over the past 6 months. She describes global pain. It is mostly medial, but some glob al. It is increased with weightbearing. A very temporary response to injection. Left knee has done great and she would like to have her right knee replaced. PAST MEDICAL HISTORY: 1. Neck pain. 2. Cervical spondylosis. 3. Depression. PAST SURGICAL HISTORY: Includes, 1. Left hip replacement done on 06/19/2018. 2. Left knee replacement done on 12/30/2020. 3. Bilateral oophorectomy. ALLERGIES: MORPHINE. CURRENT MEDICATIONS: 1. Mobic. 2. Elavil. SOCIAL HISTORY: A 76-year-old white female. She does not smoke. No significant alcohol intake. FAMILY HISTORY: Noncontributory. REVIEW OF SYSTEMS: Negative for diabetes, neurologic problem, vascular problem, or bleeding disorder s. No chest pain or shortness of breath. No history of DVT or PE. No known bleeding problems. PHYSICAL EXAMINATION: GENERAL: Shows a pleasant middle-aged female. Looks to be good health. HEENT: Benign. NECK: Supple. No lymphadenopathy. LUNGS: Clear to auscultation. HEART: Regular rate and rhythm. ABDOMEN: Soft, nontender, nondistended. EXTREMITIES: Grossly neurovascularly intact except as follows: Examination of the right knee reveal s the patient walks with a bit of a limp. She has got varus alignment to her knee. She is tender ov er the medial joint line. Small knee effusion. Range of motion about 5-120. No instability. No pa in with hip motion. Examination of the left knee reveals a well-healed incision. Anatomic alignment . Range of motion is 0 to 120. Good straight leg raise. No pain with hip motion. X-RAYS: X-rays of the right knee reviewed. It shows advanced right knee degenerative joint disease. She has complete loss of her medial joint space. She does have osteophytes medially and laterally with tricompartment disease. ASSESSMENT: A 76-year-old white female 8 months out from a left knee replacement and 3 years out fro m a left hip replacement with advanced right knee degenerative joint disease. She has failed conserv ative treatment and would like to have her right knee replaced. PLAN: We discussed treatment options. We are going to proceed with right knee replacement. The ris ks and benefits of this procedure were explained to the patient to include, but not limited to, DVT, PE, , infection, neurological injury, vascular injury, bleeding problem, pain, limited range of motion, stiffness, failure to relieve her symptoms, incomplete relief of symptoms, need for further s urgery in the future, fracture, leg length inequality, nerve palsy. The patient understands and christian res to proceed. Informed consent was obtained. She knows to hold her Mobic 2 weeks preop. She has been previously canceled for surgery for various reasons including the COVID issues primarily . She is willing and wanting to do this as an outpatient as she is markedly debilitated by her pain. This was discussed in depth with the patient and she would like to proceed with outpatient joint re placement. We will proceed as above. Job ID: [id number]
[~2021-09-19 06:40] MED LIST changes: +ACETAMINOPHEN 500 MG TAB PO SCH; -AMIT25TA9 PO; +BUPIVACAINE LIPOSOME/PF 266 MG, BUPIVACAINE/EPINEPHRINE 50 ML, SODIUM CHLORIDE 0.9% 30 ... INFIL SCH; -CHN/1 PO; -CHOL100027 PO; +EPINEPHrine INJ 1 MG/ML AMP ONE; +FAMOTIDINE 20 MG TAB PO SCH; +GABAPENTIN 300 MG CAP PO SCH; +LIDOCAINE 2%/EPINEPHRINE 1:200,000 20 ML SDV ONE; +LR 500ML BOLUS, THEN 15ML/HR IV SCH; +LR 60ML/HR IV SCH; -MELO7.5T6 PO; -MULT-506 PO; +ROPIVACAINE 0.5% 5 MG/ML 30 ML VIAL ONE; +TRANEXAMIC ACID 1,000 MG **IV Intra-op IV SCH; +ceFAZolin 2000MG 2,000 MG/15 ML SYR IV SCH
--- NOTE | 2021-09-19 06:59 | History & Physical Bridge Note ---
Date of Service September 19, 2021 History & Physical Bridge Note I have examined the patient, reviewed the History & Physical and in the interval since the performance of the History & Physical I have noted the following changes of clinical significance: no changes noted
[2021-09-19] MEDS ORDERED: FAMOTIDINE 20 MG TAB PO SCH (07:30)
[2021-09-19] MEDS ORDERED: GLYCOPYRROLATE 0.2 MG/ML VIAL ONE (08:23)
[2021-09-19] MEDS ORDERED: KETAMINE 50 MG/5 ML SYRINGE ONE (08:23)
[2021-09-19] MEDS ORDERED: PROPOFOL IV EMULSION 10 MG/ML 20 ML VIAL IV ONE (08:23)
[2021-09-19] MEDS ORDERED: ONDANSETRON INJ 2 MG/ML 2 ML VIAL ONE ×2 (08:23→18:31)
[2021-09-19] MEDS ORDERED: LIDOCAINE 2% 2 ML VIAL/AMP(20MG/ML) INFIL ONE (08:23)
[2021-09-19] MEDS ORDERED: MIDAZOLAM HCL 1 MG/ML 2ML VIAL ONE ×2 (08:23→09:02)
[2021-09-19] MEDS ORDERED: SODIUM CHLORIDE 0.9% PF 50 ML VIAL ONE (09:16)
[2021-09-19] MEDS ORDERED: BUPIVACAINE 0.25% 30 ML VIAL ONE (09:17)
[2021-09-19] MEDS ORDERED: BUPIVACAINE LIPOSOME 1.3% 266 MG/20 ML VIAL ONE (09:17)
[2021-09-19] MEDS ORDERED: EPINEPHrine INJ 1 MG/ML AMP ONE (09:17)
[2021-09-19] MEDS ORDERED: HYDROmorphone INJ 1 MG/ML SYRINGE IV PRN (10:02)
[2021-09-19] MEDS ORDERED: ONDANSETRON INJ 2 MG/ML 2 ML VIAL IV PRN ×2 (10:02→18:28)
[2021-09-19] MEDS ORDERED: ePHEDrine sulfate 50 MG/ML AMP IV PRN (10:02)
[2021-09-19] MEDS ORDERED: ATROPINE SULFATE 0.1 MG/ML 10ML SYR IV PRN (10:02)
[2021-09-19] MEDS ORDERED: PHENYLEPHRINE HCL 10 MG/ML VIAL ONE (10:21)
[2021-09-19] MEDS ORDERED: KETOROLAC 30 MG/ML VIAL ONE (10:46)
--- NOTE | 2021-09-19 11:29 | Operative Report ---
Post Operative Report Pre & Post Diagnosis Operation Date: 07/14/21 08:50 <No data on this case meets the specified criteria> Operation Date: 09/19/21 08:50 <No data on this case meets the specified criteria> Operation Date: 09/19/21 08:50 Pre-Op Diagnosis: Right Knee DJD, Right Knee Pain Post-Op Diagnosis: Right Knee DJD, Right Knee Pain I identified the patient and participated in the time-out.: Yes Procedure Operation Date: 07/14/21 08:50 <No data on this case meets the specified criteria> Operation Date: 09/19/21 08:50 <No data on this case meets the specified criteria> Operation Date: 09/19/21 08:50 Actual Procedures p Right Total Knee Arthroplasty(Right) - Anshul Bosch MD Surgeon Anshul Bosch MD Project Landscape Architect Javier Mckeon PA-C Estimated Blood Loss 50 Findings Consistent with Post-Op Diagnosis Operative findings were advanced right knee DJD. She had pretty extensive grade 4 [id number] disease of the medial compartment. Less severe changes laterally in the patellofemoral compartment. She did have a moderate-sized joint effusion. Fluids 1400 cc Specimens Right knee sent for pathology Drains None Anesthesia Type MAC Epidural Complications none Disposition Accompanied Patient To Recovery: No Indications Patient is a 76-year-old female said a long history of bilateral knee pain discomfort. Jamal been through extensive conservative treat in the past which have become less successful. She had her left knee replaced 9 months ago and is done well from this. She continued be limited by right knee pain discomfort. She elected proceed with total knee arthroplasty. Description of Procedure Operative implants consist of: 1 Biomet Vanguard size 65 right posterior stabilized femoral component. 2. Biomet size 63 tibial tray. 3. 10 mm posterior stabilized polyethylene insert. 4. 28 x 8 all polypatella. The patient was taken to the operating, identified, placed on the operating table supine position but all contractors were appropriately padded. IV antibiotics were tried by anesthesia team. An epidural anesthetic been implemented holding area. A right thigh tip was then placed. The right lower extremity was then prepped and draped in usual sterile fashion. Right leg was elevated exsanguinated with use of an Esmarch and turns placed at 300 mmHg. An anterior approach to the right knee was then performed through longitudinal incision centered over the patella. Sharp dissection was carried through subcutaneous this down the extensor mechanism. A medial parapatellar arthrotomy incision was made. Some subperiosteal dissection was carried out medially. The fat pad was resected beneath patella tendon. The lateral patellofemoral ligament was released. Patella was subluxated laterally and the knee was flexed. The osteophytes were taken off distal femur. The ACL and PCL were released from the distal femur and the tibia subluxated anteriorly. The external tibial alignment jig was then placed in the interface of the tibia and adjusted 14 mm medially. Proximal tibial cut was made remove about 2 mm of bone from the most deficient aspect of the tibial Plateau. Some osteophytes taken off medial and posterior medially. The tibia was then sized to a size 63. Attention then drawn the femur. The distal femur turned with a sharp drop with intramedullary canal was suction. A right 5 degree valgus cutting guide was placed. Distal femoral cutting block was pinned in place. Distal femoral cut was made to take an additional 3 mm of bone off distal femur. The femur was then sized to a size 65. We did downsize this over half a size. The AP cutting block was pinned parallel to the epicondylar axis which was 3 degrees of external rotation. The anterior cut, anterior chamfer, posterior cut, posterior chamfer cuts were made. The box cutting guide was placed and adjusted and set laterally. The box cut was made. The knee was flexed. The remnants of the medial and lateral menisci were exci sed. The osteophytes were taken off the posterior aspect the femur. A trial femoral component was placed. The tibial tray was pinned in maximum external rotation and the drill and stem punch were used to create defect in proximal tibia for the tibial tray. Knee was then trialed and the 10 mm insert fit most appropriately. Attention drawn the patella. The patella was cleaned of all soft tissues. Patella thickness measured 20 mm in thickness was cut down to 12. Was sized to a size 28 patella. The lug holes were drilled for the 28 patella. The lateral osteophyte was removed. Patella button was placed. Knee was taken through range of motion patella tracked nicely with no thumbs test. Attention drawn to placing permanent components. All trial components were removed. Bone plug was placed in the distal femur limit blood loss. A double batch [place] G cement was mixed. [employer] Vanguard size 65 right posterior stabilized femoral component, size 63 tibial tray, a 10 mm posterior stabilized polyethylene insert, and a 28 x 8 all polypatella were then cemented in place. Knee was brought out into full extension total cement hardened. Final cement check was then performed. Pericapsular tissues were injected with total 100 cc of combination of 20 cc of Exparel, 30 cc normal saline, 50 cc of quarter percent Marcaine with epinephrine. Patient did receive 1 g tranexamic acid. The tourniquet was then let down for turn time 54 minutes. Hemostasis reduced electrocautery. The extensor mechanism then closed with a combination 1 PDS suture #1 Vicryl suture in [id number] fashion. Extensor mechanism checked found to be intact and subcutaneous tissues then closed with 2 Dexon suture in a buried interrupted fashion skin was closed skin josefina. Leg was then cleaned dried a sterile dressing was Xeroform, 4 x 4's, sterile cast padding, Kwame bandage were applied. The patient was then transferred to the recovery room in stable condition. Patient tolerated procedure well and there were no complications. Javier Mckeon, my physician marketing support assistant, was present for the entire procedure. His assistance was essential and required for appropriate patient positioning, prepping and draping, surgical exposure, performing the technical details of the operation, placement the implants, closure of the wound, and placement of the sterile bandage. I attest to the content of the Intraoperative Record and any orders documented therein. Any exceptions are noted below.
[2021-09-19] MEDS ORDERED: ceFAZolin 2000MG 2,000 MG/15 ML SYR IV ONE (11:30)
--- NOTE | 2021-09-19 11:44 | XRay Report ---
RIGHT KNEE 2 VIEWS History: Right total knee arthroplasty. Degenerative arthritis. Postop. FINDINGS: The patient is status post a right total knee arthroplasty. The hardware is intact. No frac ture or dislocation. Skin josefina are in place. IMPRESSION: Right total knee arthroplasty. No evidence for hardware complication. ACT 112: Negative or not required by law. Electronically signed by: Brendon Rodríguez M.D. 09/19/2021 11:43 AM
[2021-09-19] MEDS: fentaNYL citrate 100 MCG/2 ML VIAL IV PRN ×2 (12:00→12:05)
[2021-09-19] MEDS: oxyCODONE/ACETAMINOPHEN 5mg/325mg TAB PO PRN ×2 (12:49→13:47)
--- NOTE | 2021-09-19 13:39 | Anesthesiology Progress Note ---
Date of Service September 19, 2021 Anesthesia Post Procedure Vital Signs Vital Signs: Temp Pulse Pulse Resp BP BP Pulse Ox 09/19/21 13:00 36.5 C 76 16 133/73 94 09/19/21 12:45 36.4 C L 87 16 135/68 95 09/19/21 12:30 36.4 C L 87 16 115/64 95 09/19/21 12:25 85 12 106/59 L 95 09/19/21 12:15 36.5 C 89 12 98/52 L 98 09/19/21 12:05 83 15 96/58 L 95 09/19/21 11:50 87 20 98/52 L 97 09/19/21 11:40 85 16 97/48 L 99 09/19/21 11:30 83 16 103/51 L 99 09/19/21 11:23 36.7 C 82 18 126/59 L 96 09/19/21 07:45 36.5 C 97 H 18 186/78 H 98 09/19/21 07:17 36.7 C 107 H 20 171/91 H 97 Pain Intensity Generalized: Pain Intensity: 5 Right Knee: Pain Intensity: 6 Transfer of Care Handoff Completed per policy Notes Mental Status: alert / awake / arousable and participated in evaluation Patient Amnestic to Procedure: Yes Nausea / Vomiting: adequately controlled Pain: adequately controlled Airway Patency, RR, SpO2: stable & adequate BP & HR: stable & adequate Hydration State: stable & adequate Neuraxial Anesthesia: was administered and sensory block resolved Anesthetic Complications: no major complications apparent and Pt Satisfied with anesthetic care
[2021-09-19] MEDS ORDERED: ALUMINUM/MAGNESIUM SUSP 30 ML UDC PO PRN (18:28)
[2021-09-19] MEDS ORDERED: MAGNESIUM HYDROXIDE SUSP 30 ML UDC PO PRN (18:28)
[2021-09-19] MEDS ORDERED: HYDROmorphone INJ 0.5 MG/0.5 ML SYR IV PRN (18:28)
[2021-09-19] MEDS ORDERED: NALOXONE HCL 0.4 MG/1 ML VIAL/CARP IV PRN (18:28)
[2021-09-19] MEDS ORDERED: bisacodyL 10 MG SUPP PR PRN (18:28)
[2021-09-19] MEDS ORDERED: METOCLOPRAMIDE HCL INJ 5 MG/ML 2 ML VIAL IV PRN (18:28)
[2021-09-19] MEDS ORDERED: ONDANSETRON 4 MG OD TAB PO PRN (18:45)
[2021-09-19] MEDS: ASCORBIC ACID 500 MG TAB PO SCH (18:49)
[2021-09-19] MEDS: SODIUM CHLORIDE 0.9% 1000ML 1,000 ML IV SCH (18:50)
[2021-09-19] MEDS: KETOROLAC TROMETHAMINE 15 MG/ML VIAL IV SCH (20:07)
[2021-09-19] MEDS: DOCUSATE SODIUM 100 MG CAP PO SCH (20:08)
[2021-09-19] MEDS: ASPIRIN 81 MG ECTAB PO SCH (20:08)
[2021-09-19] MEDS ORDERED: SENNA 8.6 MG TAB PO SCH (21:00)
[2021-09-19] MEDS ORDERED: AMITRIPTYLINE HCL 25 MG TAB PO SCH (21:00)
[2021-09-19] MEDS ORDERED: NON-FORMULARY MEDICATION (Amino Acids [Amino Acid] Capsule) PO SCH (21:00)
[2021-09-19] MEDS: ACETAMINOPHEN 500 MG TAB PO SCH (21:26)
[2021-09-19] MEDS ORDERED: TRANEXAMIC ACID / 0.7% NACL 1,000 MG/100 ML BAG IV SCH (21:30)
[2021-09-20] MEDS: ceFAZolin 2000MG 2,000 MG/15 ML SYR IV SCH ×2 (00:56→07:42)
[2021-09-20] MEDS: KETOROLAC TROMETHAMINE 15 MG/ML VIAL IV SCH ×2 (01:00→07:42)
[2021-09-20] MEDS: oxyCODONE HCL IR 5 MG TAB (IMMEDIATE RELEASE) PO PRN ×2 (03:40→04:57)
[2021-09-20] MEDS: ACETAMINOPHEN 500 MG TAB PO SCH (04:57)
[2021-09-20] MEDS: SODIUM CHLORIDE 0.9% 1000ML 1,000 ML IV SCH (05:29)
[2021-09-20 06:23] LABS: Hematocrit (blood only) 33.7 % (37-47); Hemoglobin 11.1 g/dL (12.0-16.0); Mean Corpuscular Hgb Conc 32.9 g/dL (32-36); Mean Platelet Volume 10.2 fL (7.4-10.4); Platelet Count 214 K/uL (130-400); RDW Coefficient of Variation 15.2 % (11.5-14.5); RDW Standard Deviation 49.4 fL (36.4-46.3); Red Blood Count 3.83 M/uL (4.2-5.4); White Blood Count 9.76 K/uL (4.8-10.8)
[2021-09-20 06:47] LABS: BUN Creatinine Ratio 19.8 (10-20); Calcium 8.5 mg/dl (8.5-10.1); Creatinine Clr Calc Pharmacy 68.7 ml/min; Est GFR (African American) 94.3 ml/min; Est GFR (Non-African American) 81.3 ml/min; Potassium 3.8 mmol/L (3.5-5.1)
--- NOTE | 2021-09-20 07:42 | Anesthesiology Progress Note ---
Date of Service September 20, 2021 Anesthesia Post Procedure Vital Signs Vital Signs: Temp Pulse Pulse Pulse Resp BP BP 09/20/21 07:07 37 C 84 18 149/73 H 09/20/21 03:49 36.6 C 75 16 145/75 H 09/20/21 01:36 36.6 C 76 16 137/81 09/19/21 23:15 36.6 C 75 18 153/75 H 09/19/21 19:15 36.6 C 90 20 148/79 H 09/19/21 18:00 36.5 C 88 18 160/85 H 09/19/21 17:50 36.4 C L 89 18 147/74 H 09/19/21 16:57 36.4 C L 90 18 142/79 H 09/19/21 15:50 36.5 C 89 16 141/87 H 09/19/21 14:34 36.4 C L 84 16 140/68 09/19/21 13:30 36.5 C 71 16 137/68 09/19/21 13:00 36.5 C 76 16 133/73 09/19/21 12:45 36.4 C L 87 16 135/68 09/19/21 12:30 36.4 C L 87 16 115/64 09/19/21 12:25 85 12 106/59 L 09/19/21 12:15 36.5 C 89 12 98/52 L 09/19/21 12:05 83 15 96/58 L 09/19/21 11:50 87 20 98/52 L 09/19/21 11:40 85 16 97/48 L 09/19/21 11:30 83 16 103/51 L 09/19/21 11:23 36.7 C 82 18 126/59 L 09/19/21 07:45 36.5 C 97 H 18 186/78 H Pulse Ox 09/20/21 07:07 93 09/20/21 03:49 93 09/20/21 01:36 95 09/19/21 23:15 93 09/19/21 19:15 94 09/19/21 18:00 95 09/19/21 17:50 93 09/19/21 16:57 94 09/19/21 15:50 93 09/19/21 14:34 93 09/19/21 13:30 95 09/19/21 13:00 94 09/19/21 12:45 95 09/19/21 12:30 95 09/19/21 12:25 95 09/19/21 12:15 98 09/19/21 12:05 95 09/19/21 11:50 97 09/19/21 11:40 99 09/19/21 11:30 99 09/19/21 11:23 96 09/19/21 07:45 98 Pain Intensity Generalized: Pain Intensity: 5 Right Knee: Pain Intensity: 4 Transfer of Care Handoff Completed per policy Notes Mental Status: alert / awake / arousable and participated in evaluation Patient Amnestic to Procedure: Yes Nausea / Vomiting: adequately controlled Pain: adequately controlled Airway Patency, RR, SpO2: stable & adequate BP & HR: stable & adequate Hydration State: stable & adequate Anesthetic Complications: no major complications apparent and Pt Satisfied with anesthetic care Notes: The patient is a 76 year old female who underwent right total knee arthroplasty with Dr. Bosch yesterday. Dr. Gary was the anesthesiologist information security associate last night and was called to evaluate the patient as she was dizzy upon standing to go to the bathroom and was noted to have some serosanguineous fluid draining from the epidural site. I went to evaluate the patient this morning. She was sitting up in bed and appeared comfortable. She denied having a headache. She has no vision changes, ringing in her ears, or photosensitivity. A gross neuro exam was intact. Her epidural site was clean with small amount of serosanguineous fluid. No erythema or purulent drainage was noted. She stated that so far she feels like how she felt after her last knee surgery. She will have physical therapy again today.
[2021-09-20] MEDS: ASCORBIC ACID 500 MG TAB PO SCH (07:43)
[2021-09-20] MEDS ORDERED: dexAMETHasone 10 MG in SYRINGE 0 ML IV SCH (08:00)
[2021-09-20] MEDS: DOCUSATE SODIUM 100 MG CAP PO SCH (08:17)
[2021-09-20] MEDS: ASPIRIN 81 MG ECTAB PO SCH (08:17)
--- NOTE | 2021-09-20 08:24 | Progress Notes ---
DATE OF SERVICE: 09/20/2021 SUBJECTIVE: A 76-year-old white female postoperative day 1 from right knee replacement. She was jordan eduled as an outpatient, but did not pass therapy yesterday. She is doing much better this morning. Pain is controlled. She was able to get up and go to the bathroom without much difficulty. OBJECTIVE: VITAL SIGNS: Temperature 37.0. Vital signs are stable. PHYSICAL EXAMINATION: GENERAL: Shows a pleasant, elderly female. She is lying in bed, looks pretty comfortable this morni ng. LUNGS: Clear to auscultation. HEART: Has a regular rate and rhythm. ABDOMEN: Soft, nontender, nondistended. EXTREMITIES: Grossly neurovascularly intact except as follows: Examination of the right leg reveals the dressing to be clean, dry and intact. She can dorsiflex and plantarflex her foot appropriately. She is neurologically intact. LABORATORY DATA: Hemoglobin 11.1. Hematocrit 33.7. Electrolytes are stable. ASSESSMENT: A 76-year-old white female postoperative day 1 from right knee replacement, doing pretty well. Seems to be getting around a lot better this morning. Her pain is controlled. She is neurol ogically intact. PLAN: 1. DVT prophylaxis includes thigh-high TEDs, SCDs, and aspirin twice a day. 2. PT, OT, weightbear as tolerated. Right total knee protocol. 3. Pain control, doing okay with current pain regimen. 4. Disposition: Plan to discharge to home with home health after therapy today if that goes okay. Job ID: [id number]
[2021-09-20] MEDS ORDERED: MULTIVITAMIN TAB PO SCH (09:00)
[2021-09-20] MEDS ORDERED: NON-FORMULARY MEDICATION (Multivitamin tablet) PO SCH (09:00)
[2021-09-20] MEDS ORDERED: CHOLECALCIFEROL 1,000 UNITS 25 MCG TAB PO SCH (09:00)
[2021-09-20] MEDS ORDERED: DOCUSATE SODIUM/SENNA 50/8.6MG TAB PO SCH (09:00)
[2021-09-20] MEDS ORDERED: CALCIUM CARBONATE 1250MG TAB PO SCH (09:00)
--- NOTE | 2021-09-25 06:31 | Discharge Summary ---
Date of Service September 25, 2021 Discharge Data Procedures Performed Operation Date: 07/14/21 08:50 <No data on this case meets the specified criteria> Operation Date: 09/19/21 08:50 <No data on this case meets the specified criteria> Operation Date: 09/19/21 08:50 Actual Procedures p Right Total Knee Arthroplasty(Right) - Anshul Bosch MD Hospital Course (1) Status post total right knee replacement: This is a 76 year old patient admitted on 09/19/21 and underwent total knee arthroplasty. She tolerated the procedure well and there were no complications. Transferred to the PACU post op and later to the orthopedic floor for further care. She did not pass physical therapy initially and was admitted over night. She was given ancef for antibiotic prophylaxis. She was also given SHANAE stockings, SCDs, and aspirin for DVT prophylaxis. Hemoglobin, hematocrit, and vital signs were monitored during her hospital stay and remained stable. Did not require any blood transfusions. There were no complications during her hospital stay. By post op day #1 the patient was tolerating a regular diet, pain was reasonably controlled with oral pain medicine, and she was participating in physical therapy. On post op day #1 the patient was discharged home and set up with home health care. She was given printed discharge instructions including prescriptions for extra strength tylenol, aspirin, and oxycodone. Continue physical therapy, weight bearing as tolerated. Continue SHANAE stockings. Follow up approximately 2 weeks post op or sooner if there are problems or concerns. Coding Level of Care Code None Diagnoses Status post total right knee replacement Z96.651
== END 2021-09-20 12:11 | disposition home health service (06) ==
LOC: ASU 06:40 → 3E 06:40

== ENCOUNTER 2023-05-19 19:36 | Inpatient (IN) ==
[2023-05-19] MEDS ORDERED: SODIUM CHLORIDE 0.9% 1000ML 1,000 ML IV ONE (19:46)
[2023-05-19 20:28] LABS: Basophils # (auto) 0.02 K/uL (0-0.2); Basophils % (auto) 0.2 %; Eosinophils # (auto) 0.06 K/uL (0-0.50); Eosinophils % (auto) 0.5 %; Hematocrit (blood only) 35.1 % (37.0-47.0); Hemoglobin 11.9 g/dl (12.0-16.0); Immature Granulocytes # (auto) 0.06 K/uL (0.01-0.20); Immature Granulocytes % (auto) 0.5 %; Lymphocytes # (auto) 2.32 K/uL (1.2-3.4); Lymphocytes % (auto) 18.7 %; Mean Corpuscular Hemoglobin 30.4 pg (25.0-34.0); Mean Corpuscular Hgb Conc 33.9 g/dL (32.0-36.0); Mean Corpuscular Volume 89.8 fL (80.0-100.0); Mean Platelet Volume 10.5 fL (9.4-12.4); Monocytes # (auto) 1.08 K/uL (0.11-0.59); Monocytes % (auto) 8.7 %; Neutrophils # (auto) 8.84 K/uL (1.40-6.50); Neutrophils % (auto) 71.4 %; Platelet Count 265 K/uL (130-400); RDW Coefficient of Variation 14.6 % (11.5-14.5); Red Blood Count 3.91 M/uL (4.20-5.40); White Blood Count 12.38 K/ul (4.8-10.8)
[2023-05-19] MEDS ORDERED: ALBUT/IPRATROP 3MG/0.5MG NEB 3 ML VIAL NEB STA (20:28)
--- NOTE | 2023-05-19 20:32 | Emergency Department Note ---
Impression & Plan Aspiration pneumonia of right lower lobe, Mediastinal mass, Mediastinal lymphadenopathy, History of Sjogren's disease ED Provider Note NAME: EMELINA GONZALES AGE: 77 SEX: F ARRIVES VIA: Walk-In INFORMANT: Patient ED PROVIDER(S): Kam Mckeon MD CHIEF COMPLAINT: Shortness of breath. PLAN: Disposition: Admit MEDICAL DECISION MAKING: The patient is a pleasant 77-year-old woman with a past medical history of Sjogren's who presents to the emergency department via walk-in, accompanied by family for ongoing shortness of breath in the setting of having a right total shoulder replacement on Saturday at this facility. Patient recalls that she did have nausea and vomiting upon the completion of her surgery and wonders if this may have contributed to her symptoms. She denies fevers. She reports having intermittent wheeze. She reports she has been using her incentive spirometer provided after surgery. She reports that her nausea is now controlled after hav ing a scopolamine patch. She denies any diarrhea. On arrival the patient is fatigued but no acute distress, afebrile blood pressure 190s/90s and vital signs otherwise stable. Of note, the patient was noted to have resting O2 saturation of 88-92% on room air. When she ambulated to the bathroom she was noted by RN to desaturate to 85% at was moderately dyspneic and so placed on 2 L nasal cannula. On examination the patient appears clinically dry. She has scant intermittent wheeze and rhonchi of bilateral lower lung valencia. EKG without overt acute ischemia. Chest x-ray with suspicion right lower lung opacities per my preliminary review. WBC 12K, nonspecific without left shift. H/H similar to prior. Platelets within normal limits. Chemistry without metabolic acidosis. BUN/creatinine> 20 consistent the patient's clinically dry appearance. AST, ALT and alk phos are 153, 102 and 113, respectively, increased from prior and are nonspecific. Total bilirubin within normal limits. High-sensitivity troponin 12.4, within normal limits. BNP 131, nonspecific. Lipase is not elevated. COVID-19 RNA, CECILY test negative. CTA of the chest was performed and was negative for PE though note is made of a mediastinal mass and associated lymphadenopathy in addition to right lower lobe consolidation suspicious for pneumonia. Upon evaluation patient did report feeling improved following IV fluid hydration and DuoNeb. O2 saturation had improved and was again 92% on room air. We did discuss option for admission versus outpatient management with close PCP follow-up. Initially the patient did prefer outpatient management however subsequently I was alerted by RN that they had changed her mind. Thus, patient was referred to the hospital service for further management. Case was discussed with Dr. Smith, [facility] hospital[place], who will evaluate the patient for admission. Initial lactic acid 2.2 with repeat following IV hydration improved to 1.2. Procalcitonin is not elevated. Empiric treatment initiated with IV Zosyn. Triage Nursing notes reviewed and agree them. Prior/outside medical records reviewed Vital Signs: reviewed Differential diagnosis: Reactive airway disease, pneumonia, pneumothorax, COPD, CHF, infections, cardiac ischemia, pulmonary embolism, musculoskeletal, gastrointestinal, as well as other pathologies. ER treatment provided: See below. Diagnostics interpreted by me: ECG: Normal sinus rhythm with sinus arrhythmia, 86 bpm, no ectopy, no overt ST elevation or depression, QTc 426, QRS 76. Cardiac Monitoring: An order for continuous cardiac monitoring was placed and demonstrated Normal sinus rhythm with sinus arrhythmia, 86 bpm, no ectopy. Laboratory studies: See below Imaging studies: See below Consultation(s): Case was discussed with Dr. Smith [facility] hospitalist, who will evaluate the patient for admission. HPI: The patient is a pleasant 77-year-old woman with a past medical history of Sjogren's who presents to the emergency department via walk-in, accompanied by family for ongoing shortness of breath in the setting of having a right total shoulder replacement on Saturday at this facility. Patient recalls that she did have nausea and vomiting upon the completion of her surgery and wonders if this may have contributed to her symptoms. She denies fevers. She reports having intermittent wheeze. She reports she has been using her incentive spirometer provided after surgery. She reports that her nausea is now controlled after having a scopolamine patch. She denies any diarrhea. ROS: See above HPI for pertinent positives & negatives. A total of 10 systems reviewed and were otherwise negative. VITALS:See Below PHYSICAL EXAMINATION: GENERAL: Awake, alert, fatigued-appearing, in no distress HENT: Normocephalic, atraumatic. Oropharynx with dry mucous membranes and otherwise unremarkable. EYES: Normal conjunctiva. Sclera non-icteric. NECK: Supple. No nuchal rigidity. FROM. No JVD. RESPIRATORY: Scant intermittent wheeze and rhonchi of bilateral lower lung fiel ds. CARDIAC: Regular rate, normal rhythm. Extremities warm and well perfused. Pulses equal. ABDOMEN: Soft, non-distended. No tenderness to palpation. No rebound or guarding. No masses. RECTAL: Deferred. MUSCULOSKELETAL: Chest examination reveals no tenderness. The back is symmetrical on inspection without obvious abnormality. There is no CVA tenderness to palpation. LOWER EXTREMITIES: Calves are equal size bilaterally and non-tender. No edema. No discoloration. NEURO: Normal sensorium. No sensory or motor deficits noted. SKIN: No rash or jaundice noted. Kam Mckeon MD Past Med/Surg History Medical History Benign essential hypertension Well controlled with low dose Losartan Chronic sinusitis No acute issues Degenerative disc disease Lumbar area Dental decay History of COVID-19 06/2020 -- no problems at present time Interstitial cystitis Nausea and vomiting after administration of anesthetic agent Osteoarthritis Osteopenia Sjogrens syndrome Follows with [facility] (Dr. Perez) Surgical History H/O breast biopsy BENIGN History of appendectomy History of cataract surgery RT/LEFT History of colonoscopy History of cystoscopy History of dilation and curettage History of endoscopic sinus surgery History of hysteroscopy History of knee replacement procedure of right knee History of radiofrequency ablation (RFA) of nerve of cervical spine C2-C4 nerve ablation (2019) History of surgery ovarian wedge resection History of tooth extraction History of total hip replacement Left CELIO: 06/19/18: SAB x1 attempt at L3-L4 at [facility] S/P knee replacement 12/30/20 Dr. Anshul Bosch at [facility]- Left TKR Family History Sister Breast cancer Father Colorectal cancer, Onset Age: 66 Mother Cardiac disorder Denies family history of Ovarian cancer Prostate cancer Myocardial infarction Social History Smoking Status: Former smoker Tobacco Type: Cigarettes Second Hand Exposure: No; Do You Dip or Chew Tobacco: No; Hx Alcohol Use: No Hx Substance Use: No Preferred Language: [place] Communication Ability: Effective Visual Impairment: No Limitations Hearing Ability: Normal Freelance Interpreter/Translator Required: No Beliefs That Will Affect Care: None marital status: Current Living Situation: Spouse current occupational status: retired Feels Safe at Home: Yes Childhood Exposure to Second-Hand Smoke: No Diet: regular Dental Care, Regularly: Yes Physical Activity Frequency: Daily Physical Activity Frequency Comment: PT exercises Seatbelt Use: always Sunscreen Use: Yes Assistive Devices: Oxygen - Continuous Allergies Allergies Allergy/AdvReac Type Severity Reaction Status Date / Time Cipro Allergy Severe muscle Verified 06/19/18 07:31 reaction ciprofloxacin Allergy Severe lower Verified 05/17/23 08:00 extremity weakness erythromycin base AdvReac Mild nausea Verified 05/17/23 08:00 levofloxacin AdvReac Mild metal Verified 05/17/23 08:00 taste in mouth morphine AdvReac Mild vomiting Verified 05/17/23 08:00 Home Meds Home Medications Medication Instructions Recorded Confirmed multivitamin 1 tab PO QAM 04/09/19 05/19/23 cholecalciferol (vitamin D3) 125 5,000 units PO QAM 10/13/19 05/19/23 mcg (5,000 unit) capsule diclofenac sodium 1 % topical gel 4 gm topical QID PRN Pain 10/12/20 05/19/23 (Voltaren) Balance Of Nature 1 dose PO QAM 03/05/23 05/19/23 losartan 25 mg tablet 25 mg PO QAM 03/05/23 05/19/23 meloxicam 15 mg tablet 15 mg PO QAM 03/05/23 05/19/23 garlic 5,000 mcg tablet 5 mg PO HS 04/18/23 05/19/23 Previous Rx's Medication Instructions Recorded tramadol 50 mg tablet 50 mg PO Q6H PRN pain #30 tabs 05/18/23 Results & Data (ED) Vital Signs Vital Signs - 24 hr 05/19/23 19:37 05/19/23 19:54 05/19/23 20:02 Temperature 36.2 C L Temperature Source Temporal Artery Scan Pulse Rate 90 80 Pulse Rate [Apical] Pulse Rate from SpO2 Sensor Pulse Rhythm Regular Regular Pulse Rhythm [Apical] Pulse Strength Normal Respiratory Rate 20 Respiratory Effort / Characteristics Non-Labored Spontaneous Respiratory Depth Normal Respiratory Pattern Blood Pressure 194/90 H Blood Pressure [Left Arm] Blood Pressure Mean 124 Blood Pressure Mean [Left Arm] Blood Pressure Position Sitting Pulse Oximetry 94 91 91 Oxygen Delivery Method Room Air Room Air Room Air Oxygen Flow Rate Sepsis Recent Fever Within 48 Hours No Sepsis New/Unexplained Change in Mental Status N/A Sepsis Action Taken by Nursing No Action Required 05/19/23 20:09 05/19/23 20:09 05/19/23 20:40 Temperature Temperature Source Pulse Rate 82 83 Pulse Rate [Apical] 75 Pulse Rate from SpO2 Sensor 84 Pulse Rhythm Pulse Rhythm [Apical] Regular Pulse Strength Respiratory Rate 24 19 Respiratory Effort / Characteristics Respiratory Depth Normal Respiratory Pattern Blood Pressure 195/122 H Blood Pressure [Left Arm] 183/70 H Blood Pressure Mean 146 Blood Pressure Mean [Left Arm] 107 Blood Pressure Position Pulse Oximetry 90 92 Oxygen Delivery Method Room Air Room Air Oxygen Flow Rate Sepsis Recent Fever Within 48 Hours Sepsis New/Unexplained Change in Mental Status Sepsis Action Taken by Nursing 05/19/23 20:44 05/19/23 20:10 05/19/23 20:20 Temperature 36.3 C L Temperature Source Temporal Artery Scan Pulse Rate 81 83 Pulse Rate [Apical] Pulse Rate from SpO2 Sensor 80 84 Pulse Rhythm Pulse Rhythm [Apical] Pulse Strength Respiratory Rate 23 26 H Respiratory Effort / Characteristics Respiratory Depth Respiratory Pattern Blood Pressure Blood Pressure [Left Arm] Blood Pressure Mean Blood Pressure Mean [Left Arm] Blood Pressure Position Pulse Oximetry 90 91 Oxygen Delivery Method Room Air Room Air Oxygen Flow Rate Sepsis Recent Fever Within 48 Hours Sepsis New/Unexplained Change in Mental Status Sepsis Action Taken by Nursing 05/19/23 20:35 05/19/23 20:40 05/19/23 20:41 Temperature Temperature Source Pulse Rate 85 76 79 Pulse Rate [Apical] Pulse Rate from SpO2 Sensor 77 76 Pulse Rhythm Pulse Rhythm [Apical] Pulse Strength Respiratory Rate 24 18 15 Respiratory Effort / Characteristics Respiratory Depth Respiratory Pattern Blood Pressure 183/70 H Blood Pressure [Left Arm] Blood Pressure Mean 107 Blood Pressure Mean [Left Arm] Blood Pressure Position Pulse Oximetry 99 100 Oxygen Delivery Method Nasal Cannula Oxygen Flow Rate 2 Sepsis Recent Fever Within 48 Hours Sepsis New/Unexplained Change in Mental Status Sepsis Action Taken by Nursing 05/19/23 20:50 05/19/23 21:00 05/19/23 21:00 Temperature Temperature Source Pulse Rate 93 H 95 H Pulse Rate [Apical] Pulse Rate from SpO2 Sensor 93 H 95 H Pulse Rhythm Pulse Rhythm [Apical] Pulse Strength Respiratory Rate 22 24 Respiratory Effort / Characteristics Respiratory Depth Respiratory Pattern Blood Pressure 152/86 H Blood Pressure [Left Arm] Blood Pressure Mean 108 Blood Pressure Mean [Left Arm] Blood Pressure Position Pulse Oximetry 92 91 Oxygen Delivery Method Oxygen Flow Rate Sepsis Recent Fever Within 48 Hours Sepsis New/Unexplained Change in Mental Status Sepsis Action Taken by Nursing 05/19/23 21:10 05/19/23 21:20 05/19/23 21:32 Temperature Temperature Source Pulse Rate 97 H 103 H Pulse Rate [Apical] Pulse Rate from SpO2 Sensor 97 H 104 H 105 H Pulse Rhythm Pulse Rhythm [Apical] Pulse Strength Respiratory Rate 16 26 H Respiratory Effort / Characteristics Respiratory Depth Respiratory Pattern Blood Pressure Blood Pressure [Left Arm] Blood Pressure Mean Blood Pressure Mean [Left Arm] Blood Pressure Position Pulse Oximetry 90 92 91 Oxygen Delivery Method Oxygen Flow Rate Sepsis Recent Fever Within 48 Hours Sepsis New/Unexplained Change in Mental Status Sepsis Action Taken by Nursing 05/19/23 21:35 05/19/23 22:02 05/19/23 21:40 Temperature Temperature Source Pulse Rate 100 H 96 H Pulse Rate [Apical] Pulse Rate from SpO2 Sensor 97 H 96 H Pulse Rhythm Pulse Rhythm [Apical] Pulse Strength Respiratory Rate 26 H 34 H Respiratory Effort / Characteristics Respiratory Depth Respiratory Pattern Blood Pressure 158/90 H Blood Pressure [Left Arm] Blood Pressure Mean 112 Blood Pressure Mean [Left Arm] Blood Pressure Position Pulse Oximetry 94 95 Oxygen Delivery Method Nasal Cannula Nasal Cannula Oxygen Flow Rate 2 2 Sepsis Recent Fever Within 48 Hours Sepsis New/Unexplained Change in Mental Status Sepsis Action Taken by Nursing 05/19/23 21:50 05/19/23 22:00 05/19/23 21:30 Temperature Temperature Source Pulse Rate 90 99 H Pulse Rate [Apical] Pulse Rate from SpO2 Sensor 92 H 99 H Pulse Rhythm Pulse Rhythm [Apical] Pulse Strength Respiratory Rate 22 20 28 H Respiratory Effort / Characteristics Labored SOB on Exertion Respiratory Depth Respiratory Pattern Regular Blood Pressure 146/71 H Blood Pressure [Left Arm] Blood Pressure Mean 96 Blood Pressure Mean [Left Arm] Blood Pressure Position Pulse Oximetry 95 94 82 L Oxygen Delivery Method Nasal Cannula Room Air Oxygen Flow Rate 2 Sepsis Recent Fever Within 48 Hours Sepsis New/Unexplained Change in Mental Status Sepsis Action Taken by Nursing 05/19/23 20:32 05/19/23 21:31 05/20/23 00:05 Temperature Temperature Source Pulse Rate 100 H Pulse Rate [Apical] 112 H 110 H Pulse Rate from SpO2 Sensor Pulse Rhythm Pulse Rhythm [Apical] Regular Pulse Strength Respiratory Rate 27 H 28 H Respiratory Effort / Characteristics Labored Short of Breath SOB on Exertion Labored Short of Breath SOB on Exertion Respiratory Depth Respiratory Pattern Blood Pressure Blood Pressure [Left Arm] Blood Pressure Mean Blood Pressure Mean [Left Arm] Blood Pressure Position Pulse Oximetry 88 L 88 L Oxygen Delivery Method Room Air Room Air Oxygen Flow Rate Sepsis Recent Fever Within 48 Hours Sepsis New/Unexplained Change in Mental Status Sepsis Action Taken by Nursing 05/20/23 00:00 05/19/23 23:37 05/19/23 23:38 Temperature Temperature Source Pulse Rate 99 H 97 H Pulse Rate [Apical] Pulse Rate from SpO2 Sensor 98 H 97 H Pulse Rhythm Pulse Rhythm [Apical] Pulse Strength Respiratory Rate 23 29 H Respiratory Effort / Characteristics Respiratory Depth Normal Respiratory Pattern Blood Pressure Blood Pressure [Left Arm] Blood Pressure Mean Blood Pressure Mean [Left Arm] Blood Pressure Position Pulse Oximetry 95 94 Oxygen Delivery Method Nasal Cannula Oxygen Flow Rate 2 Sepsis Recent Fever Within 48 Hours Sepsis New/Unexplained Change in Mental Status Sepsis Action Taken by Nursing 05/19/23 23:39 05/19/23 23:40 05/19/23 23:41 Temperature Temperature Source Pulse Rate 96 H 98 H Pulse Rate [Apical] Pulse Rate from SpO2 Sensor 96 H 98 H Pulse Rhythm Pulse Rhythm [Apical] Pulse Strength Respiratory Rate 25 H 24 Respiratory Effort / Characteristics Respiratory Depth Respiratory Pattern Blood Pressure 170/94 H Blood Pressure [Left Arm] Blood Pressure Mean 119 Blood Pressure Mean [Left Arm] Blood Pressure Position Pulse Oximetry 94 94 Oxygen Delivery Method Oxygen Flow Rate Sepsis Recent Fever Within 48 Hours Sepsis New/Unexplained Change in Mental Status Sepsis Action Taken by Nursing 05/19/23 23:41 05/19/23 23:42 05/19/23 23:43 Temperature Temperature Source Pulse Rate 90 105 H 100 H Pulse Rate [Apical] Pulse Rate from SpO2 Sensor 97 H 94 H 92 H Pulse Rhythm Pulse Rhythm [Apical] Pulse Strength Respiratory Rate 21 28 H 21 Respiratory Effort / Characteristics Respiratory Depth Respiratory Pattern Blood Pressure Blood Pressure [Left Arm] Blood Pressure Mean Blood Pressure Mean [Left Arm] Blood Pressure Position Pulse Oximetry 95 94 94 Oxygen Delivery Method Oxygen Flow Rate Sepsis Recent Fever Within 48 Hours Sepsis New/Unexplained Change in Mental Status Sepsis Action Taken by Nursing 05/19/23 23:44 05/19/23 23:45 05/19/23 23:46 Temperature Temperature Source Pulse Rate 102 H 98 H 101 H Pulse Rate [Apical] Pulse Rate from SpO2 Sensor 102 H 100 H 101 H Pulse Rhythm Pulse Rhythm [Apical] Pulse Strength Respiratory Rate 22 21 20 Respiratory Effort / Characteristics Respiratory Depth Respiratory Pattern Blood Pressure Blood Pressure [Left Arm] Blood Pressure Mean Blood Pressure Mean [Left Arm] Blood Pressure Position Pulse Oximetry 94 93 93 Oxygen Delivery Method Oxygen Flow Rate Sepsis Recent Fever Within 48 Hours Sepsis New/Unexplained Change in Mental Status Sepsis Action Taken by Nursing 05/19/23 23:47 05/19/23 23:48 05/19/23 23:49 Temperature Temperature Source Pulse Rate 100 H 98 H 98 H Pulse Rate [Apical] Pulse Rate from SpO2 Sensor 101 H 98 H 99 H Pulse Rhythm Pulse Rhythm [Apical] Pulse Strength Respiratory Rate 20 18 23 Respiratory Effort / Characteristics Respiratory Depth Respiratory Pattern Blood Pressure Blood Pressure [Left Arm] Blood Pressure Mean Blood Pressure Mean [Left Arm] Blood Pressure Position Pulse Oximetry 93 93 94 Oxygen Delivery Method Oxygen Flow Rate Sepsis Recent Fever Within 48 Hours Sepsis New/Unexplained Change in Mental Status Sepsis Action Taken by Nursing 05/19/23 23:50 05/19/23 23:51 05/19/23 23:52 Temperature Temperature Source Pulse Rate 102 H 103 H 102 H Pulse Rate [Apical] Pulse Rate from SpO2 Sensor 104 H 101 H 103 H Pulse Rhythm Pulse Rhythm [Apical] Pulse Strength Respiratory Rate 19 21 20 Respiratory Effort / Characteristics Respiratory Depth Respiratory Pattern Blood Pressure Blood Pressure [Left Arm] Blood Pressure Mean Blood Pressure Mean [Left Arm] Blood Pressure Position Pulse Oximetry 93 91 90 Oxygen Delivery Method Oxygen Flow Rate Sepsis Recent Fever Within 48 Hours Sepsis New/Unexplained Change in Mental Status Sepsis Action Taken by Nursing 05/19/23 23:53 05/19/23 23:54 05/19/23 23:55 Temperature Temperature Source Pulse Rate 107 H 100 H 107 H Pulse Rate [Apical] Pulse Rate from SpO2 Sensor 105 H 107 H 106 H Pulse Rhythm Pulse Rhythm [Apical] Pulse Strength Respiratory Rate 18 21 26 H Respiratory Effort / Characteristics Respiratory Depth Respiratory Pattern Blood Pressure Blood Pressure [Left Arm] Blood Pressure Mean Blood Pressure Mean [Left Arm] Blood Pressure Position Pulse Oximetry 91 91 92 Oxygen Delivery Method Oxygen Flow Rate Sepsis Recent Fever Within 48 Hours Sepsis New/Unexplained Change in Mental Status Sepsis Action Taken by Nursing 05/19/23 23:56 05/19/23 23:57 05/19/23 23:58 Temperature Temperature Source Pulse Rate 105 H 107 H 103 H Pulse Rate [Apical] Pulse Rate from SpO2 Sensor 104 H 106 H 103 H Pulse Rhythm Pulse Rhythm [Apical] Pulse Strength Respiratory Rate 19 23 19 Respiratory Effort / Characteristics Respiratory Depth Respiratory Pattern Blood Pressure Blood Pressure [Left Arm] Blood Pressure Mean Blood Pressure Mean [Left Arm] Blood Pressure Position Pulse Oximetry 94 94 93 Oxygen Delivery Method Oxygen Flow Rate Sepsis Recent Fever Within 48 Hours Sepsis New/Unexplained Change in Mental Status Sepsis Action Taken by Nursing 05/19/23 23:59 05/20/23 00:00 05/20/23 00:00 Temperature Temperature Source Pulse Rate 101 H 101 H Pulse Rate [Apical] Pulse Rate from SpO2 Sensor 102 H 101 H Pulse Rhythm Pulse Rhythm [Apical] Pulse Strength Respiratory Rate 16 14 Respiratory Effort / Characteristics Respiratory Depth Respiratory Pattern Blood Pressure 150/98 H Blood Pressure [Left Arm] Blood Pressure Mean 115 Blood Pressure Mean [Left Arm] Blood Pressure Position Pulse Oximetry 94 93 Oxygen Delivery Method Oxygen Flow Rate Sepsis Recent Fever Within 48 Hours Sepsis New/Unexplained Change in Mental Status Sepsis Action Taken by Nursing 05/20/23 00:01 05/20/23 00:02 05/20/23 00:03 Temperature Temperature Source Pulse Rate 100 H 104 H 101 H Pulse Rate [Apical] Pulse Rate from SpO2 Sensor 100 H 103 H 92 H Pulse Rhythm Pulse Rhythm [Apical] Pulse Strength Respiratory Rate 15 23 20 Respiratory Effort / Characteristics Respiratory Depth Respiratory Pattern Blood Pressure Blood Pressure [Left Arm] Blood Pressure Mean Blood Pressure Mean [Left Arm] Blood Pressure Position Pulse Oximetry 94 94 93 Oxygen Delivery Method Oxygen Flow Rate Sepsis Recent Fever Within 48 Hours Sepsis New/Unexplained Change in Mental Status Sepsis Action Taken by Nursing 05/20/23 00:04 05/20/23 00:05 05/20/23 00:06 Temperature Temperature Source Pulse Rate 108 H 101 H 102 H Pulse Rate [Apical] Pulse Rate from SpO2 Sensor 101 H 101 H 102 H Pulse Rhythm Pulse Rhythm [Apical] Pulse Strength Respiratory Rate 22 19 23 Respiratory Effort / Characteristics Respiratory Depth Respiratory Pattern Blood Pressure Blood Pressure [Left Arm] Blood Pressure Mean Blood Pressure Mean [Left Arm] Blood Pressure Position Pulse Oximetry 93 93 93 Oxygen Delivery Method Oxygen Flow Rate Sepsis Recent Fever Within 48 Hours Sepsis New/Unexplained Change in Mental Status Sepsis Action Taken by Nursing 05/20/23 00:07 05/20/23 00:08 05/20/23 00:09 Temperature Temperature Source Pulse Rate 101 H 104 H 103 H Pulse Rate [Apical] Pulse Rate from SpO2 Sensor 100 H 102 H 100 H Pulse Rhythm Pulse Rhythm [Apical] Pulse Strength Respiratory Rate 19 23 21 Respiratory Effort / Characteristics Respiratory Depth Respiratory Pattern Blood Pressure Blood Pressure [Left Arm] Blood Pressure Mean Blood Pressure Mean [Left Arm] Blood Pressure Position Pulse Oximetry 93 94 94 Oxygen Delivery Method Oxygen Flow Rate Sepsis Recent Fever Within 48 Hours Sepsis New/Unexplained Change in Mental Status Sepsis Action Taken by Nursing 05/20/23 00:10 05/20/23 00:54 05/20/23 00:55 Temperature Temperature Source Pulse Rate 103 H Pulse Rate [Apical] Pulse Rate from SpO2 Sensor 102 H 106 H 107 H Pulse Rhythm Pulse Rhythm [Apical] Pulse Strength Respiratory Rate 23 Respiratory Effort / Characteristics Respiratory Depth Respiratory Pattern Blood Pressure Blood Pressure [Left Arm] Blood Pressure Mean Blood Pressure Mean [Left Arm] Blood Pressure Position Pulse Oximetry 94 91 93 Oxygen Delivery Method Oxygen Flow Rate Sepsis Recent Fever Within 48 Hours Sepsis New/Unexplained Change in Mental Status Sepsis Action Taken by Nursing 05/20/23 00:56 05/20/23 00:57 05/20/23 00:58 Temperature Temperature Source Pulse Rate Pulse Rate [Apical] Pulse Rate from SpO2 Sensor 108 H 102 H 102 H Pulse Rhythm Pulse Rhythm [Apical] Pulse Strength Respiratory Rate Respiratory Effort / Characteristics Respiratory Depth Respiratory Pattern Blood Pressure Blood Pressure [Left Arm] Blood Pressure Mean Blood Pressure Mean [Left Arm] Blood Pressure Position Pulse Oximetry 90 90 90 Oxygen Delivery Method Oxygen Flow Rate Sepsis Recent Fever Within 48 Hours Sepsis New/Unexplained Change in Mental Status Sepsis Action Taken by Nursing 05/20/23 00:59 05/20/23 01:00 05/20/23 01:01 Temperature Temperature Source Pulse Rate Pulse Rate [Apical] Pulse Rate from SpO2 Sensor 99 H 96 H 102 H Pulse Rhythm Pulse Rhythm [Apical] Pulse Strength Respiratory Rate Respiratory Effort / Characteristics Respiratory Depth Respiratory Pattern Blood Pressure Blood Pressure [Left Arm] Blood Pressure Mean Blood Pressure Mean [Left Arm] Blood Pressure Position Pulse Oximetry 90 90 92 Oxygen Delivery Method Oxygen Flow Rate Sepsis Recent Fever Within 48 Hours Sepsis New/Unexplained Change in Mental Status Sepsis Action Taken by Nursing 05/20/23 01:02 05/20/23 01:03 05/20/23 01:04 Temperature Temperature Source Pulse Rate Pulse Rate [Apical] Pulse Rate from SpO2 Sensor 103 H 100 H 102 H Pulse Rhythm Pulse Rhythm [Apical] Pulse Strength Respiratory Rate Respiratory Effort / Characteristics Respiratory Depth Respiratory Pattern Blood Pressure 184/93 H Blood Pressure [Left Arm] Blood Pressure Mean 123 Blood Pressure Mean [Left Arm] Blood Pressure Position Pulse Oximetry 92 91 91 Oxygen Delivery Method Room Air Oxygen Flow Rate Sepsis Recent Fever Within 48 Hours Sepsis New/Unexplained Change in Mental Status Sepsis Action Taken by Nursing 05/20/23 01:05 05/20/23 01:06 05/20/23 01:38 Temperature 37.4 C Temperature Source Oral Pulse Rate Pulse Rate [Apical] 92 H Pulse Rate from SpO2 Sensor 101 H 103 H Pulse Rhythm Pulse Rhythm [Apical] Regular Pulse Strength Respiratory Rate 18 Respiratory Effort / Characteristics Non-Labored Respiratory Depth Normal Respiratory Pattern Regular Blood Pressure Blood Pressure [Left Arm] 184/93 H Blood Pressure Mean Blood Pressure Mean [Left Arm] 123 Blood Pressure Position Pulse Oximetry 93 91 92 Oxygen Delivery Method Room Air Oxygen Flow Rate Sepsis Recent Fever Within 48 Hours Sepsis New/Unexplained Change in Mental Status Sepsis Action Taken by Nursing 05/20/23 01:36 05/20/23 02:00 05/20/23 02:01 Temperature Temperature Source Pulse Rate 109 H 101 H Pulse Rate [Apical] Pulse Rate from SpO2 Sensor 90 108 H 101 H Pulse Rhythm Pulse Rhythm [Apical] Pulse Strength Respiratory Rate 31 H 27 H Respiratory Effort / Characteristics Respiratory Depth Respiratory Pattern Blood Pressure 114/91 Blood Pressure [Left Arm] Blood Pressure Mean 98 Blood Pressure Mean [Left Arm] Blood Pressure Position Pulse Oximetry 90 89 L 92 Oxygen Delivery Method Room Air Room Air Oxygen Flow Rate Sepsis Recent Fever Within 48 Hours Sepsis New/Unexplained Change in Mental Status Sepsis Action Taken by Nursing Laboratory Data Attestation: I reviewed the patient's lab results. 05/19/23 20:00 05/19/23 20:00 Lab Results 05/19/23 05/19/23 05/19/23 Range/Units 20:00 20:00 20:00 WBC 12.38 H (4.8-10.8) K/ul RBC 3.91 L (4.20-5.40) M/uL Hgb 11.9 L (12.0-16.0) g/dl Hct 35.1 L (37.0-47.0) % MCV 89.8 (80.0-100.0) fL MCH 30.4 (25.0-34.0) pg MCHC 33.9 (32.0-36.0) g/dL RDW Std Deviation 48.0 H (36.4-46.3) fL RDW Coeff of Gutierrez 14.6 H (11.5-14.5) % Plt Count 265 (130-400) K/uL MPV 10.5 (9.4-12.4) fL Immature Gran % (Auto) 0.5 % Neut % (Auto) 71.4 % Lymph % (Auto) 18.7 % [place] % (Auto) 8.7 % Eos % (Auto) 0.5 % Baso % (Auto) 0.2 % Neut # (Auto) 8.84 H (1.40-6.50) K/uL Lymph # (Auto) 2.32 (1.2-3.4) K/uL [place] # (Auto) 1.08 H (0.11-0.59) K/uL Eos # (Auto) 0.06 (0-0.50) K/uL Baso # (Auto) 0.02 (0-0.2) K/uL Immature Gran # (Auto) 0.06 (0.01-0.20) K/uL PT Cancelled INR Cancelled Sodium 136 (136-145) mmol/L Potassium 4.0 (3.5-5.1) mmol/L Chloride 105 (98-107) mmol/L Carbon Dioxide 25 (21-32) mmol/L Anion Gap 6 (3-11) BUN 14 (6-23) mg/dl Creatinine 0.69 (0.6-1.2) mg/dl Est Cr Clr Drug Dosing 69.0 ml/min Est GFR ( Amer) 97.3 ml/min Est GFR (Non-Af Amer) 84.0 ml/min BUN/Creatinine Ratio 20.3 H (10-20) Glucose 88 (70-99(Fasting)) mg/dl Lactate (0.4-2.0) mmol/L Calcium 9.2 (8.6-10.3) mg/dl Magnesium 1.8 (1.7-2.4) mg/dl Total Bilirubin 0.4 (0.2-1.0) mg/dl AST 153 H (13-39) U/L ALT 102 H (7-52) U/L Alkaline Phosphatase 113 H (34-104) U/L Troponin I High Sens 12.4 (0-14) pg/ml B-Natriuretic Peptide (0-100) pg/ml Total Protein 7.2 (6.0-8.3) gm/dl Albumin 3.8 (3.4-5.0) gm/dl Globulin 3.4 (2.5-4.0) gm/dl Albumin/Globulin Ratio 1.1 (0.9-2) Lipase 8 L (11-82) U/L Procalcitonin (0-0.5) ng/ml SARS-CoV-2, RNA, NAAT (NEGATIVE) 05/19/23 05/19/23 05/19/23 Range/Units 20:00 20:09 21:13 WBC (4.8-10.8) K/ul RBC (4.20-5.40) M/uL Hgb (12.0-16.0) g/dl Hct (37.0-47.0) % MCV (80.0-100.0) fL MCH (25.0-34.0) pg MCHC (32.0-36.0) g/dL RDW Std Deviation (36.4-46.3) fL RDW Coeff of Gutierrez (11.5-14.5) % Plt Count (130-400) K/uL MPV (9.4-12.4) fL Immature Gran % (Auto) % Neut % (Auto) % Lymph % (Auto) % [place] % (Auto) % Eos % (Auto) % Baso % (Auto) % Neut # (Auto) (1.40-6.50) K/uL Lymph # (Auto) (1.2-3.4) K/uL [place] # (Auto) (0.11-0.59) K/uL Eos # (Auto) (0-0.50) K/uL Baso # (Auto) (0-0.2) K/uL Immature Gran # (Auto) (0.01-0.20) K/uL PT 10.9 INR 1.0 Sodium (136-145) mmol/L Potassium (3.5-5.1) mmol/L Chloride (98-107) mmol/L Carbon Dioxide (21-32) mmol/L Anion Gap (3-11) BUN (6-23) mg/dl Creatinine (0.6-1.2) mg/dl Est Cr Clr Drug Dosing ml/min Est GFR ( Amer) ml/min Est GFR (Non-Af Amer) ml/min BUN/Creatinine Ratio (10-20) Glucose (70-99(Fasting)) mg/dl Lactate (0.4-2.0) mmol/L Calcium (8.6-10.3) mg/dl Magnesium (1.7-2.4) mg/dl Total Bilirubin (0.2-1.0) mg/dl AST (13-39) U/L ALT (7-52) U/L Alkaline Phosphatase (34-104) U/L Troponin I High Sens (0-14) pg/ml B-Natriuretic Peptide 131 H (0-100) pg/ml Total Protein (6.0-8.3) gm/dl Albumin (3.4-5.0) gm/dl Globulin (2.5-4.0) gm/dl Albumin/Globulin Ratio (0.9-2) Lipase (11-82) U/L Procalcitonin (0-0.5) ng/ml SARS-CoV-2, RNA, NAAT NEGATIVE (NEGATIVE) 05/19/23 05/20/23 Range/Units 21:15 01:05 WBC (4.8-10.8) K/ul RBC (4.20-5.40) M/uL Hgb (12.0-16.0) g/dl Hct (37.0-47.0) % MCV (80.0-100.0) fL MCH (25.0-34.0) pg MCHC (32.0-36.0) g/dL RDW Std Deviation (36.4-46.3) fL RDW Coeff of Gutierrez (11.5-14.5) % Plt Count (130-400) K/uL MPV (9.4-12.4) fL Immature Gran % (Auto) % Neut % (Auto) % Lymph % (Auto) % [place] % (Auto) % Eos % (Auto) % Baso % (Auto) % Neut # (Auto) (1.40-6.50) K/uL Lymph # (Auto) (1.2-3.4) K/uL [place] # (Auto) (0.11-0.59) K/uL Eos # (Auto) (0-0.50) K/uL Baso # (Auto) (0-0.2) K/uL Immature Gran # (Auto) (0.01-0.20) K/uL PT INR Sodium (136-145) mmol/L Potassium (3.5-5.1) mmol/L Chloride (98-107) mmol/L Carbon Dioxide (21-32) mmol/L Anion Gap (3-11) BUN (6-23) mg/dl Creatinine (0.6-1.2) mg/dl Est Cr Clr Drug Dosing ml/min Est GFR ( Amer) ml/min Est GFR (Non-Af Amer) ml/min BUN/Creatinine Ratio (10-20) Glucose (70-99(Fasting)) mg/dl Lactate 2.2 H* (0.4-2.0) mmol/L Calcium (8.6-10.3) mg/dl Magnesium (1.7-2.4) mg/dl Total Bilirubin (0.2-1.0) mg/dl AST (13-39) U/L ALT (7-52) U/L Alkaline Phosphatase (34-104) U/L Troponin I High Sens (0-14) pg/ml B-Natriuretic Peptide (0-100) pg/ml Total Protein (6.0-8.3) gm/dl Albumin (3.4-5.0) gm/dl Globulin (2.5-4.0) gm/dl Albumin/Globulin Ratio (0.9-2) Lipase (11-82) U/L Procalcitonin < 0.05 (0-0.5) ng/ml SARS-CoV-2, RNA, NAAT (NEGATIVE) Administered Medications Piperacillin Sod/Tazobactam (Sod 4.5 gm/ Dextrose) 120 mls @ 30 mls/hr IV Q8H [facility]; Protocol Stop: 05/27/23 06:59 Last Admin: 05/20/23 06:30 Dose: 30 mls/hr Documented By: QG Ondansetron HCl (Ondansetron Inj 2 Mg/Ml 2 Ml Vial) 4 mg IV Q6H PRN PRN Reason: Nausea Stop: 06/19/23 04:30 Last Admin: 05/20/23 06:30 Dose: 4 mg Documented By: QG Tramadol HCl (Tramadol Hcl 50 Mg Tablet) 50 mg PO Q6H PRN PRN Reason: Moderate Pain (Scale 4, 5, 6) Stop: 06/19/23 04:30 Last Admin: 05/20/23 04:41 Dose: 50 mg Documented By: QG Discontinued Medications Albuterol (Albut/Ipratrop 3mg/0.5mg Neb 3 Ml Vial) 3 ml NEB NOW STA; Protocol Stop: 05/19/23 20:29 Last Admin: 05/19/23 20:39 Dose: 3 ml Documented By: RANDY Glycerin (Glycerin Adult 12 Supp/Box Supp) 1 supp AR NOW ONE Stop: 05/20/23 01:43 Last Admin: 05/20/23 02:06 Dose: 1 supp Documented By: RANDY Sodium Chloride (Nss 1000ml) 1,000 mls @ 999 mls/hr IV .Q1H1M ONE Stop: 05/19/23 20:46 Last Infusion: 05/19/23 21:11 Dose: 0 mls/hr Documented By: Admin: 05/19/23 20:15 Dose: 999 mls/hr Documented By: RANDY Acetaminophen (Ofirmev) 1,000 mg in 100 mls @ 400 mls/hr IV NOW STA Stop: 05/19/23 22:53 Last Infusion: 05/19/23 23:35 Dose: 0 mls/hr Documented By: Admin: 05/19/23 22:55 Dose: 400 mls/hr Documented By: TRAN Piperacillin Sod/Tazobactam Sod (Zosyn) 4.5 gm in 120 mls @ 240 mls/hr IV NOW ONE Stop: 05/20/23 01:54 Last Infusion: 05/20/23 02:11 Dose: 0 mls/hr Documented By: Admin: 05/20/23 01:33 Dose: 240 mls/hr Documented By: RANDY Sodium Chloride (Nss 1000ml) 1,000 mls @ 999 mls/hr IV .Q1H1M ONE Stop: 05/20/23 02:42 Last Infusion: 05/20/23 04:34 Dose: 0 mls/hr Documented By: Admin: 05/20/23 02:13 Dose: 999 mls/hr Documented By: RANDY Ioversol (Ioversol 350 Mg 125ml Prefilled Syringe) 116 ml IV ONCE ONE Stop: 05/19/23 22:31 Last Admin: 05/19/23 22:30 Dose: 116 ml Documented By: ISREAL Imaging Data Radiologist's Impression: Chest CTA 05/19/23 20:28 Exam(s): CTA CHEST IV Amt: 116 ml optiray 350 EXAM: CT Angiography Chest With Intravenous Contrast CLINICAL HISTORY: Reason for exam: sob, s/o shoulder surgery, r/o PE. TECHNIQUE: Axial computed tomographic angiography images of the chest with intravenous contrast. CTDI is 31.68 mGy and DLP is 967.21 mGy-cm. Automated exposure control was utilized for the study. A dose lowering technique was utilized adhering to the principles of ALARA. MIP reconstructed images were created and reviewed. COMPARISON: No relevant prior studies available. FINDINGS: Pulmonary arteries: Unremarkable. No pulmonary embolism. Aorta: No acute findings. No thoracic aortic aneurysm. Lungs: Right lower lobe consolidation. Centrilobular emphysema. Pleural space: Tiny right pleural effusion. No pneumothorax. Heart: Unremarkable. No cardiomegaly. No significant pericardial effusion. No evidence of RV dysfunction. Mediastinum: 2.9 x 2.4 cm anterior mediastinal mass. Mild mediastinal lymphadenopathy as follows: Ygy-jjrqkbjx-4.2 cm, left interlobar-1.1 cm, subcarinal-1.2 cm, and right hilar-1.2 cm. Bones/joints: No acute fracture. No dislocation. Soft tissues: Soft tissue swelling and air around the right shoulder likely related to recent surgery. Lymph nodes: Unremarkable. No enlarged lymph nodes. IMPRESSION: 1. No CT evidence of pulmonary embolism. 2. 2.9 x 2.4 cm anterior mediastinal mass with mild mediastinal lymphadenopathy. 3. Right lower lobe consolidation. 4. Centrilobular emphysema. Electronically signed by: Bob Gomez M.D. 05/19/23 23:23 PM Discharge Plan Visit Data Chief Complaint: Shortness of Breath/Dyspnea Stated Complaint: SOB,PULSE OX 97 ED Provider: Kam Mckeon Discharge Problem: Aspiration pneumonia of right lower lobe, Mediastinal mass, Mediastinal lymphadenopathy, History of Sjogren's disease Patient Disposition: Admitted As Inpatient Discharge Instructions Interventions: ED Discharge Assessment Last Done: 05/20/23 03:43
[2023-05-19 20:44] LABS: Albumin Globulin Ratio 1.1 (0.9-2); Albumin Level 3.8 gm/dl (3.4-5.0); BUN Creatinine Ratio 20.3 (10-20); Bilirubin,Total 0.4 mg/dl (0.2-1.0); Calcium 9.2 mg/dl (8.6-10.3); Est GFR (African American) 97.3 ml/min; Globulin 3.4 gm/dl (2.5-4.0); Magnesium 1.8 mg/dl (1.7-2.4); Total Protein 7.2 gm/dl (6.0-8.3)
[2023-05-19 20:50] LABS: Troponin I High Sensitivity 12.4 pg/ml (0-14)
[2023-05-19 21:40] LABS: Prothrombin Time 10.9 Seconds (9.0-12.0)
[2023-05-19] MEDS ORDERED: IOVERSOL 350 MG 125mL Prefilled Syringe IV ONE (22:30)
[2023-05-19] MEDS ORDERED: ACETAMINOPHEN 1,000 MG/100 ML VIAL IV STA (22:39)
--- NOTE | 2023-05-19 23:24 | CT Scan Report ---
Exam(s): CTA CHEST IV Amt: 116 ml optiray 350 EXAM: CT Angiography Chest With Intravenous Contrast CLINICAL HISTORY: Reason for exam: sob, s/o shoulder surgery, r/o PE. TECHNIQUE: Axial computed tomographic angiography images of the chest with intravenous contrast. CTDI is 31.68 mGy and DLP is 967.21 mGy-cm. Automated exposure control was utilized for the study. A dose lowering technique was utilized adhering to the principles of ALARA. MIP reconstructed images were created and reviewed. COMPARISON: No relevant prior studies available. FINDINGS: Pulmonary arteries: Unremarkable. No pulmonary embolism. Aorta: No acute findings. No thoracic aortic aneurysm. Lungs: Right lower lobe consolidation. Centrilobular emphysema. Pleural space: Tiny right pleural effusion. No pneumothorax. Heart: Unremarkable. No cardiomegaly. No significant pericardial effusion. No evidence of RV dysfunction. Mediastinum: 2.9 x 2.4 cm anterior mediastinal mass. Mild mediastinal lymphadenopathy as follows: [id number]-[id number]-3.2 cm, left interlobar-1.1 cm, subcarinal-1.2 cm, and right hilar-1.2 cm. Bones/joints: No acute fracture. No dislocation. Soft tissues: Soft tissue swelling and air around the right shoulder likely related to recent surgery. Lymph nodes: Unremarkable. No enlarged lymph nodes. IMPRESSION: 1. No CT evidence of pulmonary embolism. 2. 2.9 x 2.4 cm anterior mediastinal mass with mild mediastinal lymphadenopathy. 3. Right lower lobe consolidation. 4. Centrilobular emphysema. Electronically signed by: Bob Gomez M.D. 05/19/23 23:23 PM
[2023-05-20] MEDS ORDERED: PIPERACILLIN/TAZOBACTAM 4.5 GM/120 ML BAG IV ONE (01:25)
[2023-05-20] MEDS ORDERED: SODIUM CHLORIDE 0.9% 1000ML 1,000 ML IV ONE (01:42)
[2023-05-20] MEDS ORDERED: GLYCERIN ADULT 12 SUPP/BOX SUPP PR ONE (01:42)
--- NOTE | 2023-05-20 02:24 | History & Physical Report ---
Date of Service May 20, 2023 Assessment & Plan (1) Status post reverse total replacement of right shoulder: (2) Interstitial cystitis: (3) Hypercholesterolemia: (4) Aspiration pneumonia of right lower lobe: (5) Mediastinal mass: (6) Benign essential hypertension: (7) Sjogren syndrome with keratoconjunctivitis: (8) Dental decay: Plan Aspiration pneumonia right lower lobe- Continue Zosyn 4.5 g IV every 8 hours begun in the ED If MRSA swab positive, add vancomycin Duonebs every 4 hours while awake and every 2 hours when necessary. Guaifenesin extended release 600 mg p.o. twice daily Nasal cannula oxygen, titrate to keep pulse ox 94 to 95% Anterior mediastinal mass- 2.9 x 2.4 cm New finding We will consult pulmonology and oncology Differential including but not limited to thymoma, lymphoma Hold any antiplatelet agents and anticoagulants for now Abnormal LFTs- AST 153, ALT 102 Labs were normal a few weeks ago Order CT scan abdomen and pelvis without contrast, since just had CTA PE contrast, for further assessment Status post right reverse TSA- Continue immobilizer Consult orthopedic surgery if needed History of Present Illness Chief Complaint: The patient presents to the emergency department complaining of a productive cough, shortness of breath since being discharged from the hospital on 05/18 Primary Care Provider: Ankit Guerrier, CASSANDRA, MARY The patient is a 77-year-old female with a past medical history including interstitial cystitis, hypercholesterolemia, vitamin D deficiency, cervicogenic headache, Sjogren's syndrome with keratoconjunctivitis, benign essential hypertension and arthritis. She underwent a right TSA on 05/18/2023, and notes that when she started oxycodone postoperatively she had nausea and vomiting. Shortly thereafter she became short of breath, and presented today on 05/19 to the emergency department with complaint of difficulty breathing. She did undergo a work-up including a CTA PE protocol, which was negative for PE, but did show a right lower lobe consolidation and an anterior mediastinal mass that was 2.9 x 2.4 cm in size. Allergies Allergy/AdvReac Type Severity Reaction Status Date / Time Cipro Allergy Severe muscle Verified 06/19/18 07:31 reaction ciprofloxacin Allergy Severe lower Verified 05/17/23 08:00 extremity weakness erythromycin base AdvReac Mild nausea Verified 05/17/23 08:00 levofloxacin AdvReac Mild metal Verified 05/17/23 08:00 taste in mouth morphine AdvReac Mild vomiting Verified 05/17/23 08:00 Home Medications Medication Instructions Recorded Confirmed Type multivitamin 1 tab PO QAM 04/09/19 05/19/23 History cholecalciferol (vitamin D3) 125 5,000 units PO QAM 10/13/19 05/19/23 History mcg (5,000 unit) capsule diclofenac sodium 1 % topical gel 4 gm topical QID PRN Pain 10/12/20 05/19/23 History (Voltaren) Balance Of Nature 1 dose PO QAM 03/05/23 05/19/23 History losartan 25 mg tablet 25 mg PO QAM 03/05/23 05/19/23 History meloxicam 15 mg tablet 15 mg PO QAM 03/05/23 05/19/23 History garlic 5,000 mcg tablet 5 mg PO HS 04/18/23 05/19/23 History tramadol 50 mg tablet 50 mg PO Q6H PRN pain #30 tabs 05/18/23 05/19/23 Rx Past Med/Surg History Medical History (Updated 05/20/23 @ 03:37 by Raghu Smith MD) Benign essential hypertension Well controlled with low dose Losartan Chronic sinusitis No acute issues Degenerative disc disease Lumbar area Dental decay History of COVID-19 06/2020 -- no problems at present time Interstitial cystitis Nausea and vomiting after administration of anesthetic agent Osteoarthritis Osteopenia Sjogrens syndrome Follows with [facility] (Dr. Perez) Surgical History (Updated 05/17/23 @ 13:45 by Dane Bueno DO) H/O breast biopsy BENIGN History of appendectomy History of cataract surgery RT/LEFT History of colonoscopy History of cystoscopy History of dilation and curettage History of endoscopic sinus surgery History of hysteroscopy History of knee replacement procedure of right knee History of radiofrequency ablation (RFA) of nerve of cervical spine C2-C4 nerve ablation (2019) History of surgery ovarian wedge resection History of tooth extraction History of total hip replacement Left CELIO: 06/19/18: SAB x1 attempt at L3-L4 at [facility] S/P knee replacement 12/30/20 Dr. Anshul Bosch at [facility]- Left TKR Family History Sister Breast cancer Father Colorectal cancer, Onset Age: 66 Mother Cardiac disorder Denies family history of Ovarian cancer Prostate cancer Myocardial infarction Social History Smoking Status: Former smoker Tobacco Type: Cigarettes Second Hand Exposure: No; Do You Dip or Chew Tobacco: No; Hx Alcohol Use: No Hx Substance Use: No Preferred Language: Lithuanian Communication Ability: Effective Visual Impairment: No Limitations Hearing Ability: Normal Biblical Studies Professor Required: No Beliefs That Will Affect Care: None marital status: Current Living Situation: Spouse current occupational status: retired Feels Safe at Home: Yes Childhood Exposure to Second-Hand Smoke: No Diet: regular Dental Care, Regularly: Yes Physical Activity Frequency: Daily Physical Activity Frequency Comment: PT exercises Seatbelt Use: always Sunscreen Use: Yes Assistive Devices: None Review of Systems Review of Systems: The patient denies palpitations, lower extremity swelling, sore throat, fevers, chills, sweats, nausea, vomiting, diarrhea , constipation, abdominal pain, pelvic pain, blood in urine or stool, dysuria, urinary frequency or urgency, lightheadedness, dizziness, headache, memory loss, loss of consciousness, rash, abnormal bruising or bleeding, imbalance, focal or generalized weakness, numbness or tingling in left arm or bilateral legs, generalized arthralgias or myalgias, back or neck pain, or night sweats. The review of systems is otherwise negative other than for that already noted above, and at least 10 systems have been reviewed. Physical Exam Physical Exam: The patient is awake, alert and oriented 3, well developed and well nourished, normocephalic and atraumatic, lying in bed and in no acute distress. HEENT--PERRL, EOMI, mucous membranes and oropharynx normal. Neck--supple. No JVD. No bruits. Thyroid normal, trachea midline, no adenopathy. Heart--normal S1 and S2. No murmurs, rubs or gallops. Lungs--coarse breath sounds on right side, with decreased breath sounds right base. No respiratory distress, no accessory muscle use. Abdomen--normal bowel sounds and soft. Nontender. Nondistended, no hernias or masses, no organomegaly. Extremities--no edema. Dermatologic--normal skin turgor, normal color, no abnormal lymph nodes, no rash. Neurologic--cranial nerves II through XII grossly intact. Rheumatologic--right shoulder in immobilizer, otherwise normal exam Psychiatric--normal affect. Results & Data Results & Data Vital Signs (Past 12 Hours) Vital Signs Temp Pulse Pulse Resp BP BP Pulse Ox 05/20/23 02:01 101 H 27 H 92 05/20/23 02:00 109 H 31 H 114/91 89 L 05/20/23 01:36 90 05/20/23 01:38 37.4 C 92 H 18 184/93 H 92 05/20/23 01:06 91 05/20/23 01:05 93 05/20/23 01:04 184/93 H 91 05/20/23 01:03 91 05/20/23 01:02 92 05/20/23 01:01 92 05/20/23 01:00 90 05/20/23 00:59 90 05/20/23 00:58 90 05/20/23 00:57 90 05/20/23 00:56 90 05/20/23 00:55 93 05/20/23 00:54 91 05/20/23 00:10 103 H 23 94 05/20/23 00:09 103 H 21 94 05/20/23 00:08 104 H 23 94 05/20/23 00:07 101 H 19 93 05/20/23 00:06 102 H 23 93 05/20/23 00:05 101 H 19 93 05/20/23 00:04 108 H 22 93 05/20/23 00:03 101 H 20 93 05/20/23 00:02 104 H 23 94 05/20/23 00:01 100 H 15 94 05/20/23 00:00 101 H 14 93 05/20/23 00:00 150/98 H 05/19/23 23:59 101 H 16 94 05/19/23 23:58 103 H 19 93 05/19/23 23:57 107 H 23 94 05/19/23 23:56 105 H 19 94 05/19/23 23:55 107 H 26 H 92 05/19/23 23:54 100 H 21 91 05/19/23 23:53 107 H 18 91 05/19/23 23:52 102 H 20 90 05/19/23 23:51 103 H 21 91 05/19/23 23:50 102 H 19 93 05/19/23 23:49 98 H 23 94 05/19/23 23:48 98 H 18 93 05/19/23 23:47 100 H 20 93 05/19/23 23:46 101 H 20 93 07 23:45 98 H 21 93 05/19/23 23:44 102 H 22 94 05/19/23 23:43 100 H 21 94 05/19/23 23:42 105 H 28 H 94 05/19/23 23:41 90 21 95 05/19/23 23:41 170/94 H 05/19/23 23:40 98 H 24 94 05/19/23 23:39 96 H 25 H 94 05/19/23 23:38 97 H 29 H 94 05/19/23 23:37 99 H 23 95 05/20/23 00:00 05/20/23 00:05 100 H 05/19/23 21:31 110 H 28 H 88 L 05/19/23 20:32 112 H 27 H 88 L 05/19/23 21:30 28 H 82 L 05/19/23 22:00 99 H 20 146/71 H 94 05/19/23 21:50 90 22 95 05/19/23 21:40 96 H 34 H 95 05/19/23 22:02 05/19/23 21:35 100 H 26 H 158/90 H 94 05/19/23 21:32 91 05/19/23 21:20 103 H 26 H 92 05/19/23 21:10 97 H 16 90 05/19/23 21:00 95 H 24 91 05/19/23 21:00 152/86 H 05/19/23 20:50 93 H 22 92 05/19/23 20:41 79 15 100 05/19/23 20:40 76 18 183/70 H 99 05/19/23 20:35 85 24 05/19/23 20:20 83 26 H 91 05/19/23 20:10 81 23 90 05/19/23 20:44 36.3 C L 05/19/23 20:40 75 19 183/70 H 92 05/19/23 20:09 83 05/19/23 20:09 82 24 195/122 H 90 05/19/23 20:02 80 91 05/19/23 19:54 91 05/19/23 19:37 36.2 C L 90 20 194/90 H 94 O2 Del Method O2 Flow Rate 05/20/23 02:01 Room Air 05/20/23 02:00 Room Air 05/20/23 01:36 05/20/23 01:38 Room Air 05/20/23 01:06 05/20/23 01:05 05/20/23 01:04 Room Air 05/20/23 01:03 05/20/23 01:02 05/20/23 01:01 05/20/23 01:00 05/20/23 00:59 05/20/23 00:58 05/20/23 00:57 05/20/23 00:56 05/20/23 00:55 05/20/23 00:54 05/20/23 00:10 05/20/23 00:09 05/20/23 00:08 05/20/23 00:07 05/20/23 00:06 05/20/23 00:05 05/20/23 00:04 05/20/23 00:03 05/20/23 00:02 05/20/23 00:01 05/20/23 00:00 05/20/23 00:00 05/19/23 23:59 05/19/23 23:58 05/19/23 23:57 05/19/23 23:56 05/19/23 23:55 05/19/23 23:54 05/19/23 23:53 05/19/23 23:52 05/19/23 23:51 05/19/23 23:50 05/19/23 23:49 05/19/23 23:48 05/19/23 23:47 05/19/23 23:46 05/19/23 23:45 05/19/23 23:44 05/19/23 23:43 05/19/23 23:42 05/19/23 23:41 05/19/23 23:41 05/19/23 23:40 05/19/23 23:39 05/19/23 23:38 05/19/23 23:37 05/20/23 00:00 Nasal Cannula 2 05/20/23 00:05 05/19/23 21:31 Room Air 05/19/23 20:32 Room Air 05/19/23 21:30 Room Air 05/19/23 22:00 Nasal Cannula 2 05/19/23 21:50 05/19/23 21:40 05/19/23 22:02 Nasal Cannula 2 05/19/23 21:35 Nasal Cannula 2 05/19/23 21:32 05/19/23 21:20 05/19/23 21:10 05/19/23 21:00 05/19/23 21:00 05/19/23 20:50 05/19/23 20:41 05/19/23 20:40 Nasal Cannula 2 05/19/23 20:35 05/19/23 20:20 Room Air 05/19/23 20:10 Room Air 05/19/23 20:44 05/19/23 20:40 Room Air 05/19/23 20:09 05/19/23 20:09 Room Air 05/19/23 20:02 Room Air 05/19/23 19:54 Room Air 05/19/23 19:37 Room Air Laboratory Results Laboratory Results WBC 12.38 K/ul (4.8-10.8) H 05/19/23 20:00 RBC 3.91 M/uL (4.20-5.40) L 05/19/23 20:00 Hgb 11.9 g/dl (12.0-16.0) L 05/19/23 20:00 Hct 35.1 % (37.0-47.0) L 05/19/23 20:00 MCV 89.8 fL (80.0-100.0) 05/19/23 20:00 MCH 30.4 pg (25.0-34.0) 05/19/23 20:00 MCHC 33.9 g/dL (32.0-36.0) 05/19/23 20:00 RDW Std Deviation 48.0 fL (36.4-46.3) H 05/19/23 20:00 RDW Coeff of Gutierrez 14.6 % (11.5-14.5) H 05/19/23 20:00 Plt Count 265 K/uL (130-400) 05/19/23 20:00 MPV 10.5 fL (9.4-12.4) 05/19/23 20:00 Immature Gran % (Auto) 0.5 % 05/19/23 20:00 Neut % (Auto) 71.4 % 05/19/23 20:00 Lymph % (Auto) 18.7 % 05/19/23 20:00 [place] % (Auto) 8.7 % 05/19/23 20:00 Eos % (Auto) 0.5 % 05/19/23 20:00 Baso % (Auto) 0.2 % 05/19/23 20:00 Neut # (Auto) 8.84 K/uL (1.40-6.50) H 05/19/23 20:00 Lymph # (Auto) 2.32 K/uL (1.2-3.4) 05/19/23 20:00 [place] # (Auto) 1.08 K/uL (0.11-0.59) H 05/19/23 20:00 Eos # (Auto) 0.06 K/uL (0-0.50) 05/19/23 20:00 Baso # (Auto) 0.02 K/uL (0-0.2) 05/19/23 20:00 Immature Gran # (Auto) 0.06 K/uL (0.01-0.20) 05/19/23 20:00 PT 10.9 Seconds (9.0-12.0) 05/19/23 21:13 INR 1.0 (0.9-1.1) 05/19/23 21:13 Sodium 136 mmol/L (136-145) 05/19/23 20:00 Potassium 4.0 mmol/L (3.5-5.1) 05/19/23 20:00 Chloride 105 mmol/L (98-107) 05/19/23 20:00 Carbon Dioxide 25 mmol/L (21-32) 05/19/23 20:00 Anion Gap 6 (3-11) 05/19/23 20:00 BUN 14 mg/dl (6-23) 05/19/23 20:00 Creatinine 0.69 mg/dl (0.6-1.2) 05/19/23 20:00 Est Cr Clr Drug Dosing 69.0 ml/min 05/19/23 20:00 Est GFR ( Amer) 97.3 ml/min 05/19/23 20:00 Est GFR (Non-Af Amer) 84.0 ml/min 05/19/23 20:00 BUN/Creatinine Ratio 20.3 (10-20) H 05/19/23 20:00 Glucose 88 mg/dl (70-99(Fasting)) 05/19/23 20:00 Lactate 2.2 mmol/L (0.4-2.0) H* 05/20/23 01:05 Calcium 9.2 mg/dl (8.6-10.3) 05/19/23 20:00 Magnesium 1.8 mg/dl (1.7-2.4) 05/19/23 20:00 Total Bilirubin 0.4 mg/dl (0.2-1.0) 05/19/23 20:00 AST 153 U/L (13-39) H 05/19/23 20:00 ALT 102 U/L (7-52) H 05/19/23 20:00 Alkaline Phosphatase 113 U/L (34-104) H 05/19/23 20:00 Troponin I High Sens 12.4 pg/ml (0-14) 05/19/23 20:00 B-Natriuretic Peptide 131 pg/ml (0-100) H 05/19/23 20:00 Total Protein 7.2 gm/dl (6.0-8.3) 05/19/23 20:00 Albumin 3.8 gm/dl (3.4-5.0) 05/19/23 20:00 Globulin 3.4 gm/dl (2.5-4.0) 05/19/23 20:00 Albumin/Globulin Ratio 1.1 (0.9-2) 05/19/23 20:00 Lipase 8 U/L (11-82) L 05/19/23 20:00 Procalcitonin < 0.05 ng/ml (0-0.5) 05/19/23 21:15 SARS-CoV-2, RNA, NAAT NEGATIVE (NEGATIVE) 05/19/23 20:09 Impressions Chest CTA 05/19/23 20:28 Exam(s): CTA CHEST IV Amt: 116 ml optiray 350 EXAM: CT Angiography Chest With Intravenous Contrast CLINICAL HISTORY: Reason for exam: sob, s/o shoulder surgery, r/o PE. TECHNIQUE: Axial computed tomographic angiography images of the chest with intravenous contrast. CTDI is 31.68 mGy and DLP is 967.21 mGy-cm. Automated exposure control was utilized for the study. A dose lowering technique was utilized adhering to the principles of ALARA. MIP reconstructed images were created and reviewed. COMPARISON: No relevant prior studies available. FINDINGS: Pulmonary arteries: Unremarkable. No pulmonary embolism. Aorta: No acute findings. No thoracic aortic aneurysm. Lungs: Right lower lobe consolidation. Centrilobular emphysema. Pleural space: Tiny right pleural effusion. No pneumothorax. Heart: Unremarkable. No cardiomegaly. No significant pericardial effusion. No evidence of RV dysfunction. Mediastinum: 2.9 x 2.4 cm anterior mediastinal mass. Mild mediastinal lymphadenopathy as follows: Kzj-lfnfjank-6.2 cm, left interlobar-1.1 cm, subcarinal-1.2 cm, and right hilar-1.2 cm. Bones/joints: No acute fracture. No dislocation. Soft tissues: Soft tissue swelling and air around the right shoulder likely related to recent surgery. Lymph nodes: Unremarkable. No enlarged lymph nodes. IMPRESSION: 1. No CT evidence of pulmonary embolism. 2. 2.9 x 2.4 cm anterior mediastinal mass with mild mediastinal lymphadenopathy. 3. Right lower lobe consolidation. 4. Centrilobular emphysema. Electronically signed by: Bob Gomez M.D. 05/19/23 23:23 PM Code Status & VTE Plan Code Status Full code VTE Prophylaxis Plan VTE Prophylaxis will be ordered: Yes PG Care Time/CCT Total # of Minutes Spent Total Time Spent with Patient: Total time spent is greater than 50% in coordination of care (as documented) at patient's floor/unit and/or counseling patient: Coding Level of Care Code 57623 INT INP/OBS CARE 3/75MIN Diagnoses Status post reverse total replacement of right shoulder Z96.611 Interstitial cystitis N30.10 Hypercholesterolemia E78.00 Aspiration pneumonia of right lower lobe J69.0 Mediastinal mass J98.59 Benign essential hypertension I10 Sjogren syndrome with keratoconjunctivitis M35.01 Dental decay K02.9
[2023-05-20] MEDS ORDERED: ONDANSETRON INJ 2 MG/ML 2 ML VIAL IV PRN (04:31)
[2023-05-20] MEDS ORDERED: traMADol HCL 50 MG TABLET PO PRN (04:31)
[2023-05-20 04:45] LABS: Basophils # (auto) 0.02 K/uL (0-0.2); Basophils % (auto) 0.2 %; Eosinophils # (auto) 0.05 K/uL (0-0.50); Eosinophils % (auto) 0.5 %; Hematocrit (blood only) 34.8 % (37.0-47.0); Hemoglobin 11.6 g/dl (12.0-16.0); Immature Granulocytes # (auto) 0.04 K/uL (0.01-0.20); Immature Granulocytes % (auto) 0.4 %; Lymphocytes # (auto) 1.61 K/uL (1.2-3.4); Mean Corpuscular Hemoglobin 30.3 pg (25.0-34.0); Mean Corpuscular Hgb Conc 33.3 g/dL (32.0-36.0); Mean Corpuscular Volume 90.9 fL (80.0-100.0); Mean Platelet Volume 9.9 fL (9.4-12.4); Monocytes # (auto) 0.87 K/uL (0.11-0.59); Monocytes % (auto) 8.1 %; Neutrophils # (auto) 8.12 K/uL (1.40-6.50); Neutrophils % (auto) 75.8 %; Platelet Count 258 K/uL (130-400); RDW Coefficient of Variation 14.7 % (11.5-14.5); RDW Standard Deviation 49.2 fL (36.4-46.3); Red Blood Count 3.83 M/uL (4.20-5.40); White Blood Count 10.71 K/ul (4.8-10.8)
[2023-05-20 04:57] LABS: Albumin Level 3.6 gm/dl (3.4-5.0); Bilirubin,Total 0.6 mg/dl (0.2-1.0); Calcium 8.6 mg/dl (8.6-10.3); Potassium 3.5 mmol/L (3.5-5.1)
[2023-05-20 05:03] LABS: Albumin Globulin Ratio 1.2 (0.9-2); BUN Creatinine Ratio 13.4 (10-20); Est GFR (African American) 98.3 ml/min; Est GFR (Non-African American) 84.8 ml/min; Globulin 3.1 gm/dl (2.5-4.0); Total Protein 6.7 gm/dl (6.0-8.3)
--- NOTE | 2023-05-20 05:19 | CT Scan Report ---
Exam(s): CT ABDOMEN + PELVIS Without Contrast EXAM: CT Abdomen and Pelvis Without Intravenous Contrast CLINICAL HISTORY: Reason for exam: abnormal LFT's, new anterior mediastinal lung mass. TECHNIQUE: Axial computed tomography images of the abdomen and pelvis without intravenous contrast. Automated exposure control was utilized for the study. A dose lowering technique was utilized adhering to the principles of ALARA. COMPARISON: No relevant prior studies available. FINDINGS: Lung bases: There is right lower lobe atelectasis. ABDOMEN: Liver: Unremarkable. Gallbladder and bile ducts: Unremarkable. No calcified stones. No ductal dilation. Pancreas: Unremarkable. No ductal dilation. Spleen: Unremarkable. No splenomegaly. Adrenals: Unremarkable. No mass. Kidneys and ureters: Unremarkable. No obstructing stones. No hydronephrosis. Stomach and bowel: There is extensive sigmoid colonic diverticulosis. No obstruction. No mucosal thickening. PELVIS: Appendix: No findings to suggest acute appendicitis. Bladder: Unremarkable. No stones. Reproductive: Unremarkable as visualized. ABDOMEN and PELVIS: Intraperitoneal space: Unremarkable. No free air. No significant fluid collection. Bones/joints: There is a total left hip arthroplasty. No acute fracture. No dislocation. Soft tissues: Unremarkable. Vasculature: Unremarkable. No abdominal aortic aneurysm. Lymph nodes: Unremarkable. No enlarged lymph nodes. IMPRESSION: 1. No acute abdominal process identified 2. Right lower lobe atelectasis Electronically signed by: Chance Mendoza MD 05/20/23 05:18 AM
[2023-05-20] MEDS ORDERED: PIPERACILLIN/TAZOBACTAM 4.5 GM in DEXTROSE 5% 100 ML IV SCH (07:00)
--- NOTE | 2023-05-20 07:06 | XRay Report ---
XR chest 1V portable HISTORY: 77 years-old Female Chest pain, nonspecific acute chest pain COMPARISON: CTA chest of same day, chest radiograph 05/01/2023. TECHNIQUE: AP view of the chest FINDINGS: Cardiac silhouette is enlarged. Moderate right hemidiaphragmatic elevation is new from prior. Small r ight pleural effusion with mild right basilar consolidation. Emphysema. No pneumothorax or overt pulm onary edema. Reverse right shoulder arthroplasty with skin josefina. Degenerative changes of the left shoulder and spine. Subcutaneous emphysema overlying the right shoulder. IMPRESSION: 1. Moderate right hemidiaphragmatic elevation is new compared to the 05/01/2023 exam. 2. Small right pleural effusion with right basilar opacities suggestive of atelectasis. 3. Emphysema. ACT 112: Negative or not required by law. The above report was generated using voice recognition software. It may contain grammatical, syntax o r spelling errors. Electronically signed by: Sunday Tompkins M.D. 05/20/2023 7:04 AM
[2023-05-20] MEDS: ALBUT/IPRATROP 3MG/0.5MG NEB 3 ML VIAL NEB SCH ×4 (07:10→19:15)
[2023-05-20] MEDS: ACETAMINOPHEN 325 MG TAB PO PRN ×3 (08:16→20:12)
[2023-05-20] MEDS: CHOLECALCIFEROL 5,000 UNITS 125 MCG TAB PO SCH (10:59)
[2023-05-20] MEDS: guaiFENesin 600 MG TABCR PO SCH ×2 (10:59→20:13)
[2023-05-20] MEDS: LOSARTAN POTASSIUM 25 MG TAB PO SCH (10:59)
--- NOTE | 2023-05-20 11:26 | Electrocardiogram Report ---
Test Reason : Blood Pressure : / mmHG Vent. Rate : 086 BPM Atrial Rate : 086 BPM P-R Int : 166 ms QRS Dur : 076 ms QT Int : 356 ms P-R-T Axes : 067 -14 042 degrees QTc Int : 426 ms Normal sinus rhythm with sinus arrhythmia Normal ECG When compared with ECG of 01-MAY-2023 10:17, No significant change was found Confirmed by Merlin Hernandez ([id number]) on 05/20/2023 11:25:37 AM Referred By: REFERRED SELF Confirmed By:Merlin Hernandez
--- NOTE | 2023-05-20 15:07 | Pulmonary Consultation ---
Date of Consultation May 20, 2023 Assessment & Plan (1) Mediastinal lymphadenopathy: (2) Aspiration pneumonia of right lower lobe: (3) Atelectasis: (4) History of tobacco abuse: (5) Hypoxia: Plan Attending: Shruthi Impression: 77-year-old female that presents for revision of right shoulder by Dr. Bueno last week on 05/17/2023. That evening she has shortness of breath and presented to the emergency room last night and was found to have elevated right hemidiaphragm with hypoxemia and shortness of breath. Patient has no hemoptysis or any chest pain. She was found to be with SPO2 of 86% which corrected with supplemental oxygen. Patient currently is on 2 L and oxygen well at 96%. She has no other acute complaints as related in HPI above. Recommendations: 1. Hypoxia with right elevated hemidiaphragm: * Improved quickly with supplemental oxygen 2 L/min. Most likely secondary to atelectasis as result of the right hemidiaphragm elevation. * Patient did have a right scalene block which is most likely the etiology for the elevated hemidiaphragm. * Incentive spirometry and out of bed as tolerated. Increase activity as tolerated * Patient will need chest x-ray in 7 days. * Empiric antibiotics would be appropriate as patient reports that she vomited with narcotics immediately after the procedure. Would avoid narcotics if possible due to vomiting and question of aspiration * Titrate supplemental oxygen off. If there is a concern with hypoxia, two-step evaluation can be performed prior to discharge 2. Mediastinal mass: * Most likely this is enlarged lymph node. There is no mass identified in the lung or the parenchyma. * Recommend general surgery referral as an outpatient for Supraclavicular lymph node dissection. * Patient and family is aware that there is concern for malignancy/lymphoma. * Await biopsy results 3. Elevated right hemidiaphragm: * To this is most likely secondary to anesthesia with the right scalene block. * Typically these resolve in 48 to 72 hours. Discussed with anesthesiology. Could be somewhat prolonged but typically resolve on their own * Follow-up chest x-ray in 1 week to reevaluate 4. 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 She quit smoking in 2018 * Estimated [id number] smoking history * Will hold off on CT screening as patient just had CTA with no evidence of nodules or masses. We will investigate mediastinal lymph nodes. 5. Atelectasis: * Most likely secondary to sedentary activity postsurgically secondary to pain from surgery of shoulder * Patient given incentive spirometer at bedside and educated on proper use. Suggest 10 breaths/h as tolerated * Follow-up chest x-ray in 1 week Thank you for including us in the care of this patient. At this time we will follow along with you. Please refer to Dr. Russell's addendum for further recommendations and corrections Patient will be followed by pulmonary as an outpatient. Pulmonary function testing will be performed 06/07/2023 at 2 PM. Follow-up with pulmonary with Luis Cotton PA-C 06/12/2023 at 1 PM (In the outpatient clinic) Supervising Physician Co-Signing Physician Notes We were called to comment on an anterior mediastinal mass. There was also new newly diagnosed elevated right hemidiaphragm in the setting of hypoxemia and shortness of breath after a right shoulder surgery 3 days ago. The patient underwent a right reverse total shoulder surgery of her shoulder on May 17. The surgery was uneventful. She did have a scalene nerve block for the procedure. She also had a laryngeal mask airway used for ventilation which was reported as uneventful. She felt short of breath immediately after the procedure though immediate postop x-ray did not show a elevated hemidiaphragm but the left hemidiaphragm for comparison was not well visualized. She presents again with shortness of breath. The patient did report that she had some nausea and an episode of vomiting in relation to taking narcotics for pain control. She does not know if she aspirated some of her vomitus. The CT scan shows some significant atelectasis at the right base. When reviewing the images with radiology it seems to surround the right hemidiaphragm and does not have a lobar component. She was treated with a dose of Zosyn but I think we can de-escalate to Unasyn and then to p.o. Augmentin. It is a bit concerning that the hemidiaphragm is not resolved at this point nearly 3 days after surgery though can linger. In rare instances there can be permanent damage to the phrenic nerve and could be ongoing. Fortunately, she is not coughing up any phlegm and she is not really lying flat so has not noticed any orthopnea. But also of note on the CT scan was an incidental finding of a anterior mediastinal mass. It seems to be associated with a left scalene large lymph node which is contralateral to the site of operation. There is also some shotty mediastinal adenopathy. As discussed with the patient and her and her 2 daughters who were present that this is concerning for a possible malignancy though we do not know for sure and could be other causes such as an infection. The patient does report history of Sjogren's and there is a potential transformation to lymphoma. One of her daughters does report a 10 to 20 pound weight loss that was unintentional over the past 12 months. That could be concerning and fit in with this radiographic finding. But there were no other type B constitutional symptoms of night sweats. It would be best at some point once her shoulder heals for her to have an excisional biopsy. If this is a lymphoma then fine- needle aspiration may not be the best. The scalene node also is very close to the subclavian artery so a needle biopsy of that as well as the anterior mass being so close to large vessels would be less than optimal. Excisional biopsy would be the most prudent. She also has some signs of emphysema on her CT scan. We are arranging for her to have outpatient PFTs and to coordinate with an outpatient counseling specialist to also follow-up the elevated right hemidiaphragm as well as the mediastinal abnormalities. She presented initially requiring supplemental oxygen but fortunately right now she is on room air. We also supplied her with an incentive spirometer which would be better than a flutter valve for the process that we are seeing on the CT scan. History of Present Illness Reason for Consultation: Consultation for mediastinal mass Attending Physician: Malina Richardson MD History of Present Illness Attending: Dr. 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 Patient went underwent right reversal surgery of shoulder 05/17/2023. No complications during procedure. No complications with anesthesia. No traumatic intubation. Procedure was done with LMA with no difficulty inserting. Patient did have a right scalene block without complication. That evening patient reports that she became short of breath. She was admitted to the hospital shortly after midnight this morning with increased shortness of breath. CTA of the chest was completed to rule out pulmonary emboli. Patient was found to have a right elevated hemidiaphragm and question of pneumonia versus atelectasis. Patient was started on systemic IV antibiotics with Zosyn as well as a flutter valve. At approximately 2 AM, patient was found to have pulse oximetry at 89% on room air and was placed on supplemental oxygen at 2 L/min by nasal cannula. She remains on same and is saturating at 96% at this time. Patient has no history of prior pulmonary diagnosis. She is not on any inhalers. She is never required supplemental oxygen in the past. Patient currently denies any shortness of breath or chest pain. She has no history of night sweats. No other B type symptoms. Patient's family does report that she had approximately 10 pound weight loss. Records were reviewed and show that 1 year ago patient weighed 184 pounds. Currently patient states that her weight at home is around 161 pounds. This weight loss was unintentional. Patient has no significant leukocytosis. She has no fever. She denies any hemoptysis. No other acute complaints at this time. 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 She reports far less than 1/2 pack/day during that period. Patient's and 2 daughters are present for the interview and examination. All questions answered to the best of her ability. Allergies Allergy/AdvReac Type Severity Reaction Status Date / Time Cipro Allergy Severe muscle Verified 06/19/18 07:31 reaction ciprofloxacin Allergy Severe lower Verified 05/17/23 08:00 extremity weakness erythromycin base AdvReac Mild nausea Verified 05/17/23 08:00 levofloxacin AdvReac Mild metal Verified 05/17/23 08:00 taste in mouth morphine AdvReac Mild vomiting Verified 05/17/23 08:00 Home Medications Medication Instructions Recorded Confirmed Type multivitamin 1 tab PO QAM 04/09/19 05/19/23 History cholecalciferol (vitamin D3) 125 5,000 units PO QAM 10/13/19 05/19/23 History mcg (5,000 unit) capsule diclofenac sodium 1 % topical gel 4 gm topical QID PRN Pain 10/12/20 05/19/23 History (Voltaren) Balance Of Nature 1 dose PO QAM 03/05/23 05/19/23 History losartan 25 mg tablet 25 mg PO QAM 03/05/23 05/19/23 History meloxicam 15 mg tablet 15 mg PO QAM 03/05/23 05/19/23 History garlic 5,000 mcg tablet 5 mg PO HS 04/18/23 05/19/23 History tramadol 50 mg tablet 50 mg PO Q6H PRN pain #30 tabs 05/18/23 05/19/23 Rx Patient History Medical History (Updated 05/20/23 @ 15:13 by Luis Cotton PA-C) Atelectasis Benign essential hypertension Well controlled with low dose Losartan Chronic sinusitis No acute issues Degenerative disc disease Lumbar area Dental decay History of COVID-19 06/2020 -- no problems at present time History of tobacco abuse Interstitial cystitis Nausea and vomiting after administration of anesthetic agent Osteoarthritis Osteopenia Sjogrens syndrome Follows with [facility] (Dr. Perez) Surgical History H/O breast biopsy BENIGN History of appendectomy History of cataract surgery RT/LEFT History of colonoscopy History of cystoscopy History of dilation and curettage History of endoscopic sinus surgery History of hysteroscopy History of knee replacement procedure of right knee History of radiofrequency ablation (RFA) of nerve of cervical spine C2-C4 nerve ablation (2019) History of surgery ovarian wedge resection History of tooth extraction History of total hip replacement Left CELIO: 06/19/18: SAB x1 attempt at L3-L4 at [facility] S/P knee replacement 12/30/20 Dr. Anshul Bosch at [facility]- Left TKR Family History Sister Breast cancer Father Colorectal cancer, Onset Age: 66 Mother Cardiac disorder Denies family history of Ovarian cancer Prostate cancer Myocardial infarction Social History (Updated 05/20/23 @ 15:10 by Luis Cotton PA-C) Smoking Status: Former smoker Tobacco Type: Cigarettes Age Started Using Tobacco: 22; Age Quit Using Tobacco: 72; Second Hand Exposure: No; Do You Dip or Chew Tobacco: No; Hx Alcohol Use: No Hx Substance Use: No Preferred Language: Chilean Communication Ability: Effective Visual Impairment: No Limitations Hearing Ability: Normal Assistant Teacher Required: No Beliefs That Will Affect Care: None marital status: Current Living Situation: Spouse current occupational status: retired Feels Safe at Home: Yes Childhood Exposure to Second-Hand Smoke: No Diet: regular Dental Care, Regularly: Yes Physical Activity Frequency: Daily Physical Activity Frequency Comment: PT exercises Seatbelt Use: always Sunscreen Use: Yes Assistive Devices: Oxygen - Continuous Review of Systems Review of Systems: A total of 10 systems was reviewed and is negative other than as listed in the HPI Physical Exam Physical Exam: Please refer to attending addendum for physical examination The patient was awake alert and interactive. She was conversant without any dysarthria. Her right arm was in a sling but was able to move her right hand freely. Neck was supple. There is a suggestion of a left Keaton clavicular fullness. Lungs are diminished at the extreme right base though relatively clear without any evidence of consolidation on the right. Left lung is completely clear. Heart is regular rate and rhythm without murmurs of the gallops abdomen is soft nontender without hepatosplenomegaly extremities without clubbing cyanosis or edema. Results & Data Results & Data Vital Signs (Past 12 Hours) Vital Signs Temp Pulse Pulse Resp BP BP Pulse Ox 05/20/23 10:53 80 16 96 05/20/23 08:33 36.8 C 107 H 16 157/74 H 94 05/20/23 07:43 84 05/20/23 07:10 82 16 98 05/20/23 04:48 108 H 05/20/23 05:24 05/20/23 04:16 36.7 C 96 H 18 203/86 H 94 05/20/23 03:30 84 20 170/86 H 98 05/20/23 03:06 91 H 20 177/87 H 91 05/20/23 03:05 80 28 H 90 O2 Del Method O2 Flow Rate 05/20/23 10:53 Nasal Cannula 2 05/20/23 08:33 Nasal Cannula 2 05/20/23 07:43 05/20/23 07:10 Nasal Cannula 4 05/20/23 04:48 05/20/23 05:24 Nasal Cannula 2 05/20/23 04:16 Nasal Cannula 2 05/20/23 03:30 Nasal Cannula 2 05/20/23 03:06 Room Air 05/20/23 03:05 Diagnostic Findings [place], [place] [phone] CT Scan Report Patient:EMELINA GONZALES Admit Date:05/19/23 MR#:[id number] Address1:[address] Acct ID:[id number] Address2: Date:1945 [facility] Zip:[place] [address] Age:77 Location:ED Sex:F Room/Bed: Att Phy: Diagnosis:SOB,PULSE OX 97 [address]ilee Phy:Ankit Guerrier, III, FASHION COORDINATOR Service Date:05/19/23 Fam Phy: Interpreting Phy:Bob Gomez MDAdmit Phy: Ordering Phy:Kam Mckeon M.D. cc: ~ Exam(s): CTA CHEST IV Amt: 116 ml optiray 350 EXAM: CT Angiography Chest With Intravenous Contrast CLINICAL HISTORY: Reason for exam: sob, s/o shoulder surgery, r/o PE. TECHNIQUE: Axial computed tomographic angiography images of the chest with intravenous contrast. CTDI is 31.68 mGy and DLP is 967.21 mGy-cm. Automated exposure control was utilized for the study. A dose lowering technique was utilized adhering to the principles of ALARA. MIP reconstructed images were created and reviewed. COMPARISON: No relevant prior studies available. FINDINGS: Pulmonary arteries: Unremarkable. No pulmonary embolism. Aorta: No acute findings. No thoracic aortic aneurysm. Lungs: Right lower lobe consolidation. Centrilobular emphysema. Pleural space: Tiny right pleural effusion. No pneumothorax. Heart: Unremarkable. No cardiomegaly. No significant pericardial effusion. No evidence of RV dysfunction. Mediastinum: 2.9 x 2.4 cm anterior mediastinal mass. Mild mediastinal lymphadenopathy as follows: Rsf-[id number]-4.2 cm, left interlobar-1.1 cm, subcarinal-1.2 cm, and right hilar-1.2 cm. Bones/joints: No acute fracture. No dislocation. Soft tissues: Soft tissue swelling and air around the right shoulder likely related to recent surgery. Lymph nodes: Unremarkable. No enlarged lymph nodes. IMPRESSION: 1. No CT evidence of pulmonary embolism. 2. 2.9 x 2.4 cm anterior mediastinal mass with mild mediastinal lymphadenopathy. 3. Right lower lobe consolidation. 4. Centrilobular emphysema. Electronically signed by: Bob Gomez M.D. 05/19/23 23:23 PM CXR 05/19/2023: PG Care Time/CCT Total # of Minutes Spent Total Time Spent with Patient: Total time spent is greater than 50% in coordination of care (as documented) at patient's floor/unit and/or counseling patient: 60 MINUTES Coding Level of Care Code 44131 IN/OBS CONSULT LVL 4,60M Diagnoses Mediastinal lymphadenopathy R59.0 Aspiration pneumonia of right lower lobe J69.0 Atelectasis J98.11 History of tobacco abuse Z87.891 Hypoxia R09.02 Time Spent (min) 60
--- NOTE | 2023-05-20 15:38 | History & Physical Bridge Note ---
Date of Service May 20, 2023 History & Physical Bridge Note I have examined the patient, reviewed the History & Physical and in the interval since the performance of the History & Physical I have noted the following changes of clinical significance: Pt feeling better, less SOB. I ordered ICS and flutter valve to help expand the lung and expectorate out any possible mucus. Suspect right phrenic nerve hopefully only temporarily paralyzed from recent nerve block from shoulder surgery. Appreciate my discussion with PULM for management of this condition as well as the anterior mediastinal mass and left scalene LN. Otherwise, pt has no further nausea but must avoid opioids. Restart home Mobic for pain. BPs elevated-restart home losartan She is moving bowels today Add Biotene for dry mouth from Sjogren's. Consult Nurse Juvencio for assistance with Thoracic Surgery referral as outpt De-escalate abx down to po Augmentin in case of any aspiration PNA from previous N/V post-operatively a couple days ago Plan for CXR in AM, continue ICS, flutter valve, may need 2 step walk test prior to discharge f/u outpt with PULM Thoracic surgery f/u after discharge Likely dc to home tomorrow Discussed her care with her daughters, Toya (known to me) and Deb
[2023-05-20] MEDS: AMOXICILLIN/CLAVULANATE 875 MG TAB PO SCH (16:42)
[2023-05-20] MEDS: MELOXICAM 7.5 MG TAB PO SCH (16:43)
--- NOTE | 2023-05-20 17:02 | Consultation ---
Date of Consultation May 20, 2023 Assessment & Plan (1) Mediastinal mass: Immediate priority will be to stabilize her from a pneumonia and or general postoperative standpoint. Malignancy is certainly in the differential diagnosis of mediastinal mass, some the additionally described adenopathy could be yogi ctive and the fullness in the supraclavicular fossa may be nonspecifically postoperative as well. May be worthwhile to wait at least a week to 10 days for further stabilization from both of those issues and at least reassess physical examination for the presence or absence of ongoing concerning findings in the left SC. Specific diagnosis from there may not be high yield. An intervening PET scan may be a consideration before determining a final diagnostic approach. Incidentally note the modest elevation of liver enzymes which is unassociated with changes on plain CT imaging but if there were abnormalities there on PET, that might impact the overall approach to diagnosis. PET might also specifically highlight which of the mediastinal findings are most likely to yield diagnostic material. Plan Pulmonary medicine follow-up may be most efficient to guide recovery of pulmonary function and resolution of the infection and aspiration issues. Can defer to them for post discharge reassessment and determination as to whether intervening PET would be worthwhile and as well the optimal approach for diagnostic material. If the left SC area does not seem to be a high yield site for diagnosis, may be able to consider bronchoscopy with EBUS over korey mediastinoscopy. Medical oncology will be delighted to see the patient as a more formal diagnosis becomes available for further review. History of Present Illness Reason for Consultation: Mediastinal mass Attending Physician: Malina Richardson MD History of Present Illness 77-year-old former smoker presents with what is probably aspiration pneumonia and post scalene block atelectasis but with a new mediastinal mass. She does not have a specific history of malignancy nor has this current presentation been confirmed as such. Pulmonary medicine performed a very thorough consultation earlier today with appropriate therapeutic and diagnostic recommendations both for now and in going forward. Medical oncology does not have anything more to offer at this time but will be available to see her after a specific diagnosis is made if/as that makes a more specific indication for our potential role in prognostication and treatment determination Allergies Allergy/AdvReac Type Severity Reaction Status Date / Time Cipro Allergy Severe muscle Verified 06/19/18 07:31 reaction ciprofloxacin Allergy Severe lower Verified 05/17/23 08:00 extremity weakness erythromycin base AdvReac Mild nausea Verified 05/17/23 08:00 levofloxacin AdvReac Mild metal Verified 05/17/23 08:00 taste in mouth morphine AdvReac Mild vomiting Verified 05/17/23 08:00 Home Medications Medication Instructions Recorded Confirmed Type multivitamin 1 tab PO QAM 04/09/19 05/19/23 History cholecalciferol (vitamin D3) 125 5,000 units PO QAM 10/13/19 05/19/23 History mcg (5,000 unit) capsule diclofenac sodium 1 % topical gel 4 gm topical QID PRN Pain 10/12/20 05/19/23 History (Voltaren) Balance Of Nature 1 dose PO QAM 03/05/23 05/19/23 History losartan 25 mg tablet 25 mg PO QAM 03/05/23 05/19/23 History meloxicam 15 mg tablet 15 mg PO QAM 03/05/23 05/19/23 History garlic 5,000 mcg tablet 5 mg PO HS 04/18/23 05/19/23 History tramadol 50 mg tablet 50 mg PO Q6H PRN pain #30 tabs 05/18/23 05/19/23 Rx Patient History Medical History (Updated 05/20/23 @ 15:13 by Luis Cotton PA-C) Atelectasis Benign essential hypertension Well controlled with low dose Losartan Chronic sinusitis No acute issues Degenerative disc disease Lumbar area Dental decay History of COVID-19 06/2020 -- no problems at present time History of tobacco abuse Interstitial cystitis Nausea and vomiting after administration of anesthetic agent Osteoarthritis Osteopenia Sjogrens syndrome Follows with [facility] (Dr. Perez) Surgical History H/O breast biopsy BENIGN History of appendectomy History of cataract surgery RT/LEFT History of colonoscopy History of cystoscopy History of dilation and curettage History of endoscopic sinus surgery History of hysteroscopy History of knee replacement procedure of right knee History of radiofrequency ablation (RFA) of nerve of cervical spine C2-C4 nerve ablation (2019) History of surgery ovarian wedge resection History of tooth extraction History of total hip replacement Left CELIO: 06/19/18: SAB x1 attempt at L3-L4 at [facility] S/P knee replacement 12/30/20 Dr. Anshul Bosch at [facility]- Left TKR Family History Sister Breast cancer Father Colorectal cancer, Onset Age: 66 Mother Cardiac disorder Denies family history of Ovarian cancer Prostate cancer Myocardial infarction Social History (Updated 05/20/23 @ 15:10 by Luis Cotton PA-C) Smoking Status: Former smoker Tobacco Type: Cigarettes Age Started Using Tobacco: 22; Age Quit Using Tobacco: 72; Second Hand Exposure: No; Do You Dip or Chew Tobacco: No; Hx Alcohol Use: No Hx Substance Use: No Preferred Language: Portuguese Communication Ability: Effective Visual Impairment: No Limitations Hearing Ability: Normal Screen Stretcher Required: No Beliefs That Will Affect Care: None marital status: Current Living Situation: Spouse current occupational status: retired Feels Safe at Home: Yes Childhood Exposure to Second-Hand Smoke: No Diet: regular Dental Care, Regularly: Yes Physical Activity Frequency: Daily Physical Activity Frequency Comment: PT exercises Seatbelt Use: always Sunscreen Use: Yes Assistive Devices: Oxygen - Continuous Physical Exam Physical Exam: We have nothing to add to the very thorough examination as documented in the hospitalist and pulmonary consultation notes Results & Data Vital Signs (Past 12 Hours) Vital Signs Temp Pulse Pulse Resp BP Pulse Ox O2 Del Method 05/20/23 15:25 80 18 92 Room Air 05/20/23 15:19 116 H 05/20/23 10:53 80 16 96 Nasal Cannula 05/20/23 08:33 36.8 C 107 H 16 157/74 H 94 Nasal Cannula 05/20/23 07:43 84 05/20/23 07:10 82 16 98 Nasal Cannula 05/20/23 05:24 Nasal Cannula O2 Flow Rate 05/20/23 15:25 05/20/23 15:19 05/20/23 10:53 2 05/20/23 08:33 2 05/20/23 07:43 05/20/23 07:10 4 05/20/23 05:24 2 Laboratory Results Laboratory Results - last 24 hr 05/19/23 05/19/23 05/19/23 20:00 20:00 20:00 WBC 12.38 H RBC 3.91 L Hgb 11.9 L Hct 35.1 L MCV 89.8 MCH 30.4 MCHC 33.9 RDW Std Deviation 48.0 H RDW Coeff of Gutierrez 14.6 H Plt Count 265 MPV 10.5 Immature Gran % (Auto) 0.5 Neut % (Auto) 71.4 Lymph % (Auto) 18.7 [place] % (Auto) 8.7 Eos % (Auto) 0.5 Baso % (Auto) 0.2 Neut # (Auto) 8.84 H Lymph # (Auto) 2.32 [place] # (Auto) 1.08 H Eos # (Auto) 0.06 Baso # (Auto) 0.02 Immature Gran # (Auto) 0.06 PT Cancelled INR Cancelled Sodium 136 Potassium 4.0 Chloride 105 Carbon Dioxide 25 Anion Gap 6 BUN 14 Creatinine 0.69 Est Cr Clr Drug Dosing 69.0 Est GFR ( Amer) 97.3 Est GFR (Non-Af Amer) 84.0 BUN/Creatinine Ratio 20.3 H Glucose 88 Lactate Calcium 9.2 Magnesium 1.8 Total Bilirubin 0.4 AST 153 H ALT 102 H Alkaline Phosphatase 113 H Troponin I High Sens 12.4 B-Natriuretic Peptide Total Protein 7.2 Albumin 3.8 Globulin 3.4 Albumin/Globulin Ratio 1.1 Lipase 8 L Procalcitonin Nasal Screen MRSA (PCR) SARS-CoV-2, RNA, NAAT 05/19/23 05/19/23 05/19/23 20:00 20:09 21:13 WBC RBC Hgb Hct MCV MCH MCHC RDW Std Deviation RDW Coeff of Gutierrez Plt Count MPV Immature Gran % (Auto) Neut % (Auto) Lymph % (Auto) [place] % (Auto) Eos % (Auto) Baso % (Auto) Neut # (Auto) Lymph # (Auto) [place] # (Auto) Eos # (Auto) Baso # (Auto) Immature Gran # (Auto) PT 10.9 INR 1.0 Sodium Potassium Chloride Carbon Dioxide Anion Gap BUN Creatinine Est Cr Clr Drug Dosing Est GFR ( Amer) Est GFR (Non-Af Amer) BUN/Creatinine Ratio Glucose Lactate Calcium Magnesium Total Bilirubin AST ALT Alkaline Phosphatase Troponin I High Sens B-Natriuretic Peptide 131 H Total Protein Albumin Globulin Albumin/Globulin Ratio Lipase Procalcitonin Nasal Screen MRSA (PCR) SARS-CoV-2, RNA, NAAT NEGATIVE 05/19/23 05/20/23 05/20/23 21:15 01:05 03:13 WBC RBC Hgb Hct MCV MCH MCHC RDW Std Deviation RDW Coeff of Gutierrez Plt Count MPV Immature Gran % (Auto) Neut % (Auto) Lymph % (Auto) [place] % (Auto) Eos % (Auto) Baso % (Auto) Neut # (Auto) Lymph # (Auto) [place] # (Auto) Eos # (Auto) Baso # (Auto) Immature Gran # (Auto) PT INR Sodium Potassium Chloride Carbon Dioxide Anion Gap BUN Creatinine Est Cr Clr Drug Dosing Est GFR ( Amer) Est GFR (Non-Af Amer) BUN/Creatinine Ratio Glucose Lactate 2.2 H* Calcium Magnesium Total Bilirubin AST ALT Alkaline Phosphatase Troponin I High Sens B-Natriuretic Peptide Total Protein Albumin Globulin Albumin/Globulin Ratio Lipase Procalcitonin < 0.05 Nasal Screen MRSA (PCR) Negative SARS-CoV-2, RNA, NAAT 05/20/23 05/20/23 05/20/23 04:33 04:35 04:35 WBC 10.71 RBC 3.83 L Hgb 11.6 L Hct 34.8 L MCV 90.9 MCH 30.3 MCHC 33.3 RDW Std Deviation 49.2 H RDW Coeff of Gutierrez 14.7 H Plt Count 258 MPV 9.9 Immature Gran % (Auto) 0.4 Neut % (Auto) 75.8 Lymph % (Auto) 15.0 [place] % (Auto) 8.1 Eos % (Auto) 0.5 Baso % (Auto) 0.2 Neut # (Auto) 8.12 H Lymph # (Auto) 1.61 [place] # (Auto) 0.87 H Eos # (Auto) 0.05 Baso # (Auto) 0.02 Immature Gran # (Auto) 0.04 PT INR Sodium 139 Potassium 3.5 Chloride 106 Carbon Dioxide 28 Anion Gap 5 BUN 9 Creatinine 0.67 Est Cr Clr Drug Dosing 71.0 Est GFR ( Amer) 98.3 Est GFR (Non-Af Amer) 84.8 BUN/Creatinine Ratio 13.4 Glucose 88 Lactate 1.2 Calcium 8.6 Magnesium Total Bilirubin 0.6 AST 96 H ALT 85 H Alkaline Phosphatase 106 H Troponin I High Sens B-Natriuretic Peptide Total Protein 6.7 Albumin 3.6 Globulin 3.1 Albumin/Globulin Ratio 1.2 Lipase Procalcitonin Nasal Screen MRSA (PCR) SARS-CoV-2, RNA, NAAT 05/20/23 10:35 WBC RBC Hgb Hct MCV MCH MCHC RDW Std Deviation RDW Coeff of Gutierrez Plt Count MPV Immature Gran % (Auto) Neut % (Auto) Lymph % (Auto) [place] % (Auto) Eos % (Auto) Baso % (Auto) Neut # (Auto) Lymph # (Auto) [place] # (Auto) Eos # (Auto) Baso # (Auto) Immature Gran # (Auto) PT INR Sodium Potassium Chloride Carbon Dioxide Anion Gap BUN Creatinine Est Cr Clr Drug Dosing Est GFR ( Amer) Est GFR (Non-Af Amer) BUN/Creatinine Ratio Glucose Lactate Calcium Magnesium Total Bilirubin AST ALT Alkaline Phosphatase Troponin I High Sens B-Natriuretic Peptide Total Protein Albumin Globulin Albumin/Globulin Ratio Lipase Procalcitonin 0.06 Nasal Screen MRSA (PCR) SARS-CoV-2, RNA, NAAT Diagnostic Findings Chest X-Ray 05/19/23 19:45 XR chest 1V portable HISTORY: 77 years-old Female Chest pain, nonspecific acute chest pain COMPARISON: CTA chest of same day, chest radiograph 05/01/2023. TECHNIQUE: AP view of the chest FINDINGS: Cardiac silhouette is enlarged. Moderate right hemidiaphragmatic elevation is new from prior. Small right pleural effusion with mild right basilar consolidation. Emphysema. No pneumothorax or overt pulmonary edema. Reverse right shoulder arthroplasty with skin josefina. Degenerative changes of the left shoulder and spine. Subcutaneous emphysema overlying the right shoulder. IMPRESSION: 1. Moderate right hemidiaphragmatic elevation is new compared to the 05/01/2023 exam. 2. Small right pleural effusion with right basilar opacities suggestive of atelectasis. 3. Emphysema. ACT 112: Negative or not required by law. The above report was generated using voice recognition software. It may contain grammatical, syntax or spelling errors. Electronically signed by: Sunday Tompkins M.D. 05/20/2023 7:04 AM Chest CTA 05/19/23 20:28 Exam(s): CTA CHEST IV Amt: 116 ml optiray 350 EXAM: CT Angiography Chest With Intravenous Contrast CLINICAL HISTORY: Reason for exam: sob, s/o shoulder surgery, r/o PE. TECHNIQUE: Axial computed tomographic angiography images of the chest with intravenous contrast. CTDI is 31.68 mGy and DLP is 967.21 mGy-cm. Automated exposure control was utilized for the study. A dose lowering technique was utilized adhering to the principles of ALARA. MIP reconstructed images were created and reviewed. COMPARISON: No relevant prior studies available. FINDINGS: Pulmonary arteries: Unremarkable. No pulmonary embolism. Aorta: No acute findings. No thoracic aortic aneurysm. Lungs: Right lower lobe consolidation. Centrilobular emphysema. Pleural space: Tiny right pleural effusion. No pneumothorax. Heart: Unremarkable. No cardiomegaly. No significant pericardial effusion. No evidence of RV dysfunction. Mediastinum: 2.9 x 2.4 cm anterior mediastinal mass. Mild mediastinal lymphadenopathy as follows: Ndp-wraskkxx-4.2 cm, left interlobar-1.1 cm, subcarinal-1.2 cm, and right hilar-1.2 cm. Bones/joints: No acute fracture. No dislocation. Soft tissues: Soft tissue swelling and air around the right shoulder likely related to recent surgery. Lymph nodes: Unremarkable. No enlarged lymph nodes. IMPRESSION: 1. No CT evidence of pulmonary embolism. 2. 2.9 x 2.4 cm anterior mediastinal mass with mild mediastinal lymphadenopathy. 3. Right lower lobe consolidation. 4. Centrilobular emphysema. Electronically signed by: Bob Gomez M.D. 05/19/23 23:23 PM Abdomen/Pelvis CT 05/20/23 03:31 Exam(s): CT ABDOMEN + PELVIS Without Contrast EXAM: CT Abdomen and Pelvis Without Intravenous Contrast CLINICAL HISTORY: Reason for exam: abnormal LFT's, new anterior mediastinal lung mass. TECHNIQUE: Axial computed tomography images of the abdomen and pelvis without intravenous contrast. Automated exposure control was utilized for the study. A dose lowering technique was utilized adhering to the principles of ALARA. COMPARISON: No relevant prior studies available. FINDINGS: Lung bases: There is right lower lobe atelectasis. ABDOMEN: Liver: Unremarkable. Gallbladder and bile ducts: Unremarkable. No calcified stones. No ductal dilation. Pancreas: Unremarkable. No ductal dilation. Spleen: Unremarkable. No splenomegaly. Adrenals: Unremarkable. No mass. Kidneys and ureters: Unremarkable. No obstructing stones. No hydronephrosis. Stomach and bowel: There is extensive sigmoid colonic diverticulosis. No obstruction. No mucosal thickening. PELVIS: Appendix: No findings to suggest acute appendicitis. Bladder: Unremarkable. No stones. Reproductive: Unremarkable as visualized. ABDOMEN and PELVIS: Intraperitoneal space: Unremarkable. No free air. No significant fluid collection. Bones/joints: There is a total left hip arthroplasty. No acute fracture. No dislocation. Soft tissues: Unremarkable. Vasculature: Unremarkable. No abdominal aortic aneurysm. Lymph nodes: Unremarkable. No enlarged lymph nodes. IMPRESSION: 1. No acute abdominal process identified 2. Right lower lobe atelectasis Electronically signed by: Chance Mendoza MD 05/20/23 05:18 AM PG Care Time/CCT Total # of Minutes Spent Total Time Spent with Patient: Total time spent is greater than 50% in coordination of care (as documented) at patient's floor/unit and/or counseling patient: [place] [address] IN/OBS CONSULT LVL 2,35M Patient Type New Diagnoses Mediastinal mass J98.59
[2023-05-21] MEDS: ACETAMINOPHEN 325 MG TAB PO PRN ×2 (03:21→07:59)
[2023-05-21 06:38] LABS: Basophils # (auto) 0.03 K/uL (0-0.2); Basophils % (auto) 0.3 %; Eosinophils # (auto) 0.19 K/uL (0-0.50); Eosinophils % (auto) 2.1 %; Hematocrit (blood only) 32.8 % (37.0-47.0); Hemoglobin 11.1 g/dl (12.0-16.0); Immature Granulocytes # (auto) 0.03 K/uL (0.01-0.20); Immature Granulocytes % (auto) 0.3 %; Lymphocytes # (auto) 1.77 K/uL (1.2-3.4); Lymphocytes % (auto) 19.2 %; Mean Corpuscular Hemoglobin 30.1 pg (25.0-34.0); Mean Corpuscular Hgb Conc 33.8 g/dL (32.0-36.0); Mean Corpuscular Volume 88.9 fL (80.0-100.0); Mean Platelet Volume 10.4 fL (9.4-12.4); Monocytes # (auto) 0.76 K/uL (0.11-0.59); Monocytes % (auto) 8.2 %; Neutrophils # (auto) 6.44 K/uL (1.40-6.50); Neutrophils % (auto) 69.9 %; Platelet Count 248 K/uL (130-400); RDW Coefficient of Variation 14.5 % (11.5-14.5); RDW Standard Deviation 46.8 fL (36.4-46.3); Red Blood Count 3.69 M/uL (4.20-5.40); White Blood Count 9.22 K/ul (4.8-10.8)
[2023-05-21] MEDS: ALBUT/IPRATROP 3MG/0.5MG NEB 3 ML VIAL NEB SCH ×2 (06:52→11:13)
[2023-05-21 06:59] LABS: Albumin Globulin Ratio 1.1 (0.9-2); Albumin Level 3.1 gm/dl (3.4-5.0); BUN Creatinine Ratio 13.3 (10-20); Bilirubin,Total 0.6 mg/dl (0.2-1.0); Calcium 8.8 mg/dl (8.6-10.3); Creatinine Clr Calc Pharmacy 76.2 ml/min; Est GFR (African American) 101.9 ml/min; Est GFR (Non-African American) 87.9 ml/min; Globulin 2.9 gm/dl (2.5-4.0); Magnesium 1.8 mg/dl (1.7-2.4); Potassium 3.3 mmol/L (3.5-5.1)
[2023-05-21] MEDS: MELOXICAM 7.5 MG TAB PO SCH (08:00)
[2023-05-21] MEDS: AMOXICILLIN/CLAVULANATE 875 MG TAB PO SCH (08:01)
[2023-05-21] MEDS: LOSARTAN POTASSIUM 25 MG TAB PO SCH (08:01)
[2023-05-21] MEDS: guaiFENesin 600 MG TABCR PO SCH (08:01)
[2023-05-21] MEDS: CHOLECALCIFEROL 5,000 UNITS 125 MCG TAB PO SCH (08:01)
--- NOTE | 2023-05-21 08:09 | XRay Report ---
XR chest 1V portable HISTORY: f/u right lower lobe consolidation/elevated hemidiaphragm COMPARISON: Chest CTA 05/19/2023. FINDINGS: Postoperative changes again noted within the right shoulder. Elevated right hemidiaphragm a nd right basilar densities persist. The heart remains mildly enlarged. The left lung is clear. No erin dence for pulmonary edema. There are calcifications within the aortic knob. IMPRESSION: No change in the elevated right hemidiaphragm and right basilar densities. ACT 112: Negative or not required by law. Electronically signed by: Brendon Rodríguez M.D. 05/21/2023 8:08 AM
[2023-05-21] MEDS ORDERED: POTASSIUM CHLORIDE CRTAB 20 MEQ TABCR PO STA (08:10)
--- NOTE | 2023-05-21 12:31 | Discharge Summary ---
Discharge Summary Date of Service May 21, 2023 Notes For Next Care Provider Needs Thoracic Surgery and Pulmonology follow up Possibly needs a PET scan prior to biopsy of mediastinal mass and lymph node Needs Chest xray in 1 week Admission HPI Per Admitting Provider The patient is a 77-year-old female with a past medical history including interstitial cystitis, hypercholesterolemia, vitamin D deficiency, cervicogenic headache, Sjogren's syndrome with keratoconjunctivitis, benign essential hypertension and arthritis. She underwent a right TSA on 05/18/2023, and notes that when she started oxycodone postoperatively she had nausea and vomiting. Shortly thereafter she became short of breath, and presented today on 05/19 to the emergency department with complaint of difficulty breathing. She did u ndergo a work-up including a CTA PE protocol, which was negative for PE, but did show a right lower lobe consolidation and an anterior mediastinal mass that was 2.9 x 2.4 cm in size. 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 improving on CXR but still present Passed 2 step walk test prior to dc and no need for supplemental O2 f/u CXR in 1 week and has PFTs and Pulm f/u scheduled finish out 7 day course of abx with Augmentin albuterol prn (2) Mediastinal mass: Anterior mediastinal mass-2.9 x 2.4 cm-->New incidental finding Also w/ left scalene LN enlarged Has had some weight loss but otherwise no B symptoms Seen by PULM and recommends excisional biopsy of LN and biopsy of mediastinal mass by Surgery Thoracic surgery referral will be placed for her through our Nurse Navigator for [place] or [facility] Oncology saw and recommends possible PET scan prior to biopsy-defer to Surgery and PULM to order as outpt (3) Elevated LFTs: AST 153, ALT 102 on admission and now trending back downward almost to normal Labs were normal a few weeks ago CT scan abdomen and pelvis without liver or GB abnormalities No abd pain suspect irritation of liver from right hemidiaphragm issues and atelectasis follow LFTs as outpt (4) Benign essential hypertension: BPs mildly elevated from stress continue home losartan (5) Sjogren syndrome with keratoconjunctivitis: continue Biotene spray, outpt f/u (6) Status post reverse total replacement of right shoulder: continue post-op care as per Ortho avoid narcotics due to N/V (7) Hypoxia: as above, now resolved Plan Dispo-stable for dc to home. Discussed all care with 2 daughters and at bedside on day of discharge Discharge Exam Constitutional WD/WN, vitals as above Respiratory normal respiratory effort; no respiratory distress Auscultation: + diminished lung sounds (at right base); no rales, no rhonchi and no wheezes Cardiovascular RRR, no murmur, no edema Musculoskeletal Shoulder: + shoulder abnormal to inspection (RUE in sling, dressing in place shoulder) Updated Medication List Medication Instructions Recorded Confirmed Type multivitamin 1 tab PO QAM 04/09/19 05/19/23 History cholecalciferol (vitamin D3) 125 5,000 units PO QAM 10/13/19 05/19/23 History mcg (5,000 unit) capsule diclofenac sodium 1 % topical gel 4 gm topical QID PRN Pain 10/12/20 05/19/23 History (Voltaren) Balance Of Nature 1 dose PO QAM 03/05/23 05/19/23 History losartan 25 mg tablet 25 mg PO QAM 03/05/23 05/19/23 History meloxicam 15 mg tablet 15 mg PO QAM 03/05/23 05/19/23 History garlic 5,000 mcg tablet 5 mg PO HS 04/18/23 05/19/23 History acetaminophen 325 mg tablet 650 mg PO Q4H PRN pain #30 tabs 05/21/23 Rx albuterol sulfate 90 mcg/actuation 2 inh inhalation Q6H PRN shortness 05/21/23 Rx aerosol inhaler of breath or wheezing #8.5 grams amoxicillin 875 mg-potassium 1 tab PO BIDM #9 tabs 05/21/23 Rx clavulanate 125 mg tablet Hospital Stay Data Consultations 05/20/23 01:26 ED Decision to Admit Stat 05/20/23 02:35 Consult Oncology Routine 05/20/23 09:38 Consult Pulmonology Routine 05/20/23 12:11 Consult [facility] occupational safety specialist Routine Diagnostic Imagining Performed 05/19/23 20:28 CT angio chest PE protocol Stat 05/20/23 03:31 CT Abd and Pelvis [CT abd pelvis wo con] Stat Pending Results Patient Have Any Pending Studies at Discharge: Yes (Final blood cultures-no growth to date) Discharge Instructions Given to Patient (Per Discharging Provider) You were admitted with low oxygen levels and shortness of breath from a partially paralyzed diaphragm. This has improved and hopefully will continue to improve over the next few days. Please have a chest xray done at [facility] on Saturday05/27/23. Follow up appointments for Pulmonary Function Testing and with the Pulmonology PA (Luis Cotton) have been scheduled for you. Please finish out the course of antibiotics in case of pneumonia. As for the mass and enlarged lymph node found in your chest, a referral will be made to see a Thoracic Surgeon in either [place] or [facility]. If you haven't heard from them within 1 week, please contact our Nurse Navigator, Laura Hinojosa, at [phone]. The oncologist did mention the possibility of having a PET scan done prior to having a biopsy-please discuss this with the [employer] and the Surgeon when you see them. It was a pleasure taking care of you! -Malina Richardson M.D. Total Time Total Time Spent Total Time Spent (In Minutes): 35 min Coding Level of Care Code 13817 INP/OBS DISCH >30 MIN Diagnoses Aspiration pneumonia of right lower lobe J69.0 Mediastinal mass J98.59 Elevated LFTs R79.89 Benign essential hypertension I10 Sjogren syndrome with keratoconjunctivitis M35.01 Status post reverse total replacement of right shoulder Z96.611 Hypoxia R09.02
== END 2023-05-21 12:38 | disposition home health service (06) | DRG 177 ==
LOC: ED 19:36 → SUATTDRO 05-20 02:23 → 2W 05-20 02:23

== ENCOUNTER 2024-07-02 12:24 | Inpatient (IN) ==
[2024-07-02 13:10] LABS: Basophils # (auto) 0.03 K/uL (0.00-0.20); Basophils % (auto) 0.3 %; Eosinophils % (auto) 1.1 %; Hematocrit (blood only) 33.3 % (37.0-47.0); Hemoglobin 11.3 g/dl (12.0-16.0); Immature Granulocytes # (auto) 0.06 K/uL (0.01-0.20); Immature Granulocytes % (auto) 0.7 %; Lymphocytes # (auto) 0.36 K/uL (1.20-3.40); Lymphocytes % (auto) 4.1 %; Mean Corpuscular Hemoglobin 29.9 pg (25.0-34.0); Mean Corpuscular Hgb Conc 33.9 g/dL (32.0-36.0); Mean Corpuscular Volume 88.1 fL (80.0-100.0); Mean Platelet Volume 8.7 fL (9.4-12.4); Monocytes # (auto) 0.64 K/uL (0.11-0.59); Monocytes % (auto) 7.2 %; Neutrophils # (auto) 7.68 K/uL (1.40-6.50); Neutrophils % (auto) 86.6 %; Platelet Count 242 K/uL (130-400); RDW Coefficient of Variation 14.4 % (11.5-14.5); RDW Standard Deviation 45.5 fL (36.4-46.3); Red Blood Count 3.78 M/uL (4.20-5.40); White Blood Count 8.87 K/ul (4.8-10.8)
[2024-07-02 13:21] LABS: Albumin Level 3.7 gm/dl (3.4-5.0); Anion Gap 7 (3-11); Bilirubin,Total 0.3 mg/dl (0.2-1.0); Calcium 9.4 mg/dl (8.6-10.3); Carbon Dioxide 26 mmol/L (21-32); Chloride 92 mmol/L (98-107); Potassium 4.3 mmol/L (3.5-5.1); Sodium 125 mmol/L (136-145)
[2024-07-02 13:27] LABS: Alanine Aminotransferase 57 U/L (7-52); Albumin Globulin Ratio 1.4 (0.9-2); Alkaline Phosphatase 113 U/L (34-104); Aspartate Aminotransferase 39 U/L (13-39); BUN Creatinine Ratio 32.9 (10-20); Blood Urea Nitrogen 25 mg/dl (6-23); Est GFR (African American) 86.5 ml/min; Est GFR (Non-African American) 74.6 ml/min; Globulin 2.7 gm/dl (2.5-4.0); Glucose 108 mg/dl (70-99(Fasting)); Total Protein 6.4 gm/dl (6.0-8.3)
--- NOTE | 2024-07-02 15:39 | Electrocardiogram Report ---
Test Reason : Blood Pressure : */* mmHG Vent. Rate : 81 BPM Atrial Rate : 81 BPM P-R Int : 158 ms QRS Dur : 62 ms QT Int : 336 ms P-R-T Axes : 67 -9 52 degrees QTcB Int : 390 ms Normal sinus rhythm Low voltage QRS Poor R wave progression, consider anterior CO vs. lead placement vs. LVH Abnormal ECG When compared with ECG of 19-May-2023 19:53, No significant change was found Confirmed by Rafal Cruz ([id number]) on 07/02/2024 3:39:04 PM Referred By: Confirmed By: Rafal Cruz
--- NOTE | 2024-07-02 15:47 | XRay Report ---
XR chest 1V portable HISTORY: Shortness of breath. COMPARISON: Chest 09/17/2023. FINDINGS: Right Port-A-Cath terminates in the SVC. There is a right shoulder prosthesis. No evidence for pulmonary edema. The heart is normal in size. Calcifications within the aortic knob. Mild emphyse ma. Left upper lobe mild interstitial thickening, unchanged. This is likely chronic. No new focal mayra g consolidations to suggest a pneumonia. IMPRESSION: No significant change compared to the prior study. No acute process. ACT 112: Negative or not required by law. Electronically signed by: Brendon Rodríguez M.D. 07/02/2024 3:46 PM
--- NOTE | 2024-07-02 16:04 | History & Physical Report ---
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 or prednisone taper; polydipsia cause cannot be excluded at this time - NA on admission 125, glucose nonfasting WNL - Cr at baseline, 0.76 on admission - Clinically appears hypovolemic - Fluid restriction to 1500 ml/ day - urine osmol and sodium, serum osmol pending - AM cortisol to be checked tomorrow (2) Sjogren syndrome with keratoconjunctivitis: Plan: - Currently on tapered prednisone dose; tapered from 50 mg wit a decrease of 10 mg each week over 5 weeks - Last 3 days of steroid 10 mg dose ordered - clinically appears hypervolemic - on cevimeline at home, Biotene ordered as needed (3) Non-small cell carcinoma of lung: Plan: - in remission February 2024; chemotherapy and radiation - Could be contributing to to hyponatremia (4) Iron deficiency anemia: Plan: - Patient recently decreased iron supplement from every other day to every 3 days due to ongoing constipation - Hgb at baseline on admission, 11.3 - continue with iron supplement Q3D (5) Constipation: Plan: - Patient with ongoing constipation - Due to iron supplement, patient recently decreased dose to every 3 days - patient takes 2 senna pills every few minutes - Scheduled Senokot ordered; will discontinue if diarrhea develops as would contribute to hyponatremia Plan VTE ppx: Lovenox Diet: regular with 1500 ml/day fluid restriction Code status: FULL CODE Chronic stable diagnoses: OA: continue tramadol as needed and meloxicam HTN: stable, continue home losartan Osteopenia: continue with Vit D History of Present Illness Chief Complaint: weakness Primary Care Provider: Ankit Guerrier III, MARY Patient is a 79 yo female with a past medical history of non-small cell lung cancer in remission, Sjogren's syndrome, osteopenia, osteoarthritis, hypertension, and iron deficiency anemia. Patient presented today with ongoing weakness for the past 5 days. She stated that she thought it was due to a decrease in her red blood cells. She recently decreased her dose of iron from every other day to every 3 days due to ongoing constipation. She stated that she wakes up every morning and just feels weak. She has been taking her vital signs every morning and 2 days ago and showed a oxygen level of 86%, otherwise have been stable. She did have a headache this morning that has since subsided. She denies recent head trauma and seizures. She denies confusion, numbness, tingling, swelling, nausea, and vomiting. She stated that she does drink a lot of water due to her Sjogren's syndrome. She stated that she has been constipated recently; her last bowel movement was last night. She takes 2 Senokot per day. She took an enema last week. She believes this is due to her iron supplement and has recently decreased it . Patient's small cell lung cancer in remission, chemo and radiation completed in February 2024. Patient is currently on a prednisone taper for her Sjogren's syndrome; she was to be tapered from 50 mg decrease by 10 mg each week over 5 weeks. Patient currently has 3 days left of her 10 mg dose. Patient denies current headache, vision changes, diarrhea, sore throat, chest pain, shortness of breath, abdominal pain, nausea, vomiting, diarrhea, numbness, tingling, and swelling. Patient denies history of COPD or asthma. She used to be a former smoker but quit in 2018, 30+ pack year history. Patient denies alcohol use. She wishes to be full code at this time. Allergies Allergy/AdvReac Type Severity Reaction Status Date / Time ciprofloxacin Allergy Severe lower Verified 07/02/24 16:03 extremity weakness erythromycin base AdvReac Mild nausea Verified 07/02/24 16:03 levofloxacin AdvReac Mild metal Verified 07/02/24 16:03 taste in mouth morphine AdvReac Mild vomiting Verified 07/02/24 16:03 Home Medications Medication Instructions Recorded Confirmed Type multivitamin 1 tab PO QAM 04/09/19 07/02/24 History cholecalciferol (vitamin D3) 125 5,000 units PO QAM 10/13/19 07/02/24 History mcg (5,000 unit) capsule Balance Of Nature 1 dose PO QAM 03/05/23 07/02/24 History acetaminophen 325 mg tablet 650 mg (2 x 325 mg) PO Q4H PRN 05/21/23 07/02/24 Rx pain #30 tabs losartan 25 mg tablet 25 mg PO QAM #90 tabs 09/12/23 07/02/24 Rx quetiapine 25 mg tablet (Seroquel) 25 mg PO DAILY #90 tabs 11/11/23 07/02/24 Rx ferrous sulfate 325 mg (65 mg 325 mg PO Q OTHER DAY 02/07/24 07/02/24 History iron) tablet meloxicam 15 mg tablet 15 mg PO QAM #90 tabs 04/02/24 07/02/24 Rx magnesium oxide 250 mg PO DAILY 05/14/24 07/02/24 History folic acid-vit B6-vit B12 2.5 1 tab PO DAILY 07/02/24 07/02/24 History mg-25 mg-2 mg tablet (Folbic) garlic 1,000 mg capsule 1,000 mg PO DAILY 07/02/24 07/02/24 History ginseng 250 mg capsule 250 mg PO DAILY 07/02/24 07/02/24 History prednisone 10 mg tablet See Rx Instructions .Route .COMPLEX 07/02/24 07/02/24 History turmeric 400 mg capsule 400 mg PO DAILY 07/02/24 07/02/24 History Past Med/Surg History Problem List (Updated 07/02/24 @ 17:16 by Avani Cline PA-C) Iron deficiency anemia Hypertension Constipation Non-small cell carcinoma of lung Hyponatremia 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 Reverse TSA 04/2023 [facility]. Squamous cell carcinoma of lymph node Dental decay Nausea and vomiting after administration of anesthetic agent Degenerative disc disease Lumbar area Sjogrens syndrome Follows with [facility] (Dr. Perez) Interstitial cystitis Surgical History Port-A-Cath in place (09/17/23) Insertion Access Port with Fluoroscopy Right Subclavian(Right) - Tobias Augustine DO History of reverse total replacement of right shoulder joint History of radiofrequency ablation (RFA) of nerve of cervical spine C2-C4 nerve ablation (2019) History of knee replacement procedure of right knee S/P knee replacement 12/30/20 Dr. Anshul Bosch at [facility]- Left TKR H/O breast biopsy BENIGN History of colonoscopy History of tooth extraction History of endoscopic sinus surgery History of cataract surgery RT/LEFT History of surgery ovarian wedge resection History of hysteroscopy History of dilation and curettage History of cystoscopy History of appendectomy History of total hip replacement Left CELIO: 06/19/18: SAB x1 attempt at L3-L4 at [facility] Family History Father , 70yo Colorectal cancer Mother , 97yo TIA (transient ischemic attack) Brother No problems noted. Sister Medical history unknown Sister COPD (chronic obstructive pulmonary disease) Sister Breast cancer Sister No problems noted. Sister No problems noted. Sister No problems noted. Daughter No problems noted. Daughter No problems noted. Daughter Twin Thyroid disease Daughter Thyroid disease Twin Denies family history of Ovarian cancer Prostate cancer Myocardial infarction Social History Smoking Status: Former smoker Tobacco Type: Cigarettes Age Started Using Tobacco: 22; Age Quit Using Tobacco: 72; packs per day: 0.5; Cigarettes Per Day: 1/2 PPD x 50 yrs; Second Hand Exposure: No; Do You Dip or Chew Tobacco: No; Hx Alcohol Use: No Hx Substance Use: No Preferred Language: Ken[place] Communication Ability: Effective Visual Impairment: No Limitations Hearing Ability: Normal Commodities Clerk Required: No Beliefs That Will Affect Care: None marital status: Current Living Situation: Spouse current occupational status: retired current occupation: Nurse How many Children do You have: 4 Feels Safe at Home: Yes Childhood Exposure to Second-Hand Smoke: No Diet: regular caffeine: No during the past year weight has: decreased > 10 lbs Dental Care, Regularly: Yes Physical Activity Frequency: Daily Physical Activity Frequency Comment: PT exercises Seatbelt Use: always Sunscreen Use: Yes Assistive Devices: Denture - Upper and Glasses Review of Systems Review of Systems: See HPI Physical Exam Physical Exam: The patient is awake, alert and oriented 3, well developed and well nourished, normocephalic and atraumatic, in no acute distress. Non-toxic appearing. HEENT- EOMI, mucous membranes dry. Hearing grossly intact. Heart-normal S1 and S2. No murmurs, rubs or gallops. Lungs-clear bilaterally, no respiratory distress, no accessory muscle use. Abdomen-normal bowel sounds and soft. No ascites noted. Non-tender. Extremities- no clubbing, cyanosis, or edema. Rheumatologic-normal range of motion. Psychiatric-normal affect. Results & Data Results & Data Vital Signs (Past 12 Hours) Vital Signs Pulse Resp BP Pulse Ox O2 Del Method 07/02/24 12:36 91 H 18 124/72 97 Room Air Code Status & VTE Plan Code Status Full code VTE Prophylaxis Plan VTE Prophylaxis will be ordered: Yes Supervising Physician Co-Signing Physician Notes 79-year-old female recently completed treatment for non-small cell lung cancer this february, was a history of Sjogren's has been on a prolonged prednisone taper presents with 5 days of increasing confusion persistent xerostomia and hyponatremia with a sodium of 125. Patient has been feeling poorly for the last 5 days she does note that she drinks plenty of water to try to bowel her dry mouth and painful mouth syndromes of her Sjogren's. She has recently completed a prolonged course of prednisone tapering currently on 10 mg a day. She had a headache in the a.m. but that is since resolved she says she frequently gets headaches because she has cervical disc disease. This headache was frontal in nature and was not associate with any visual changes facial drooping Otherwise she has had mild constipation for which she takes Senokot and remainder of her physical symptoms have been normal for her age accompanied by her and her daughter the emergency department Patient was seen and examined independently I discussed the case with Avani IRWIN I reviewed pertinent past medical social family history and also the plan of care and agree with the plan of care. Physically she is awake alert appropriate cranial nerves are intact she has no focal neurological deficits Neck is at lymphadenopathy Card exam is regular that murmur Lungs are clear with good air movement no wheezes Abdomen is with normal active bowel sounds and soft Extremities are without edema Plan is for hyponatremia with systemic symptoms, initially will have a fluid restriction awaiting urine sodium osmolality and urine random sodium to determine if fluid restrictions appropriate versus hypertonic saline. If need be nephrology can be contacted. Regarding her prednisone taper a.m. cortisol be undertaken she does not appear to be in adrenal distress at this time but consideration for hydrocortisone therapy could be entertained Regard to her Sjogren's syndrome and her xerostomia we will offer Biotene at this time regarding her arthritic pain she will continue her meloxicam and tramadol There is a full code and will use enoxaparin for DVT prevention Any exceptions will be noted below PG Care Time/CCT Total # of Minutes Spent Total Time Spent with Patient: Total time spent is greater than 50% in coordination of care (as documented) at patient's floor/unit and/or counseling patient: Coding Level of Care Code None Diagnoses Hyponatremia E87.1 Sjogren syndrome with keratoconjunctivitis M35.01 Non-small cell carcinoma of lung C34.90 Iron deficiency anemia D50.9 Constipation K59.00
[2024-07-02 16:25] LABS: Appearance Urine Clear (Clear); Bacteria Urine Automated None Seen (None Seen); Bilirubin Urine Negative (Negative); Blood Urine Negative (Negative); Cast Urine Automated 0-2 /lpf (0-2); Color Urine Yellow; Epithelial Cell Urine Auto 0-2 /hpf (0-2); Glucose Urine UA Negative (Negative); Ketones Urine Negative (Negative); Leukocyte Esterase Urine Trace (Negative); Nitrite Urine Negative (Negative); Protein Urine Negative (Negative); RBC Urine Automated 0-2 /hpf (0-2); Specific Gravity Urine 1.007 (1.000-1.030); Urobilinogen Urine Negative (Negative); WBC Urine Automated 0-5 /hpf (0-5); pH Urine 5.5 (4.5-7.5)
--- NOTE | 2024-07-02 17:46 | Billing Data ---
Date of Service July 02, 2024 Coding Level of Care Code 84423 INT INP/OBS CARE
--- NOTE | 2024-07-02 17:54 | Emergency Department Note ---
Impression & Plan Acute hyponatremia, Weakness, Sjogren syndrome ED Provider Note NAME: EMELINA GONZALES AGE: 79 SEX: F : 1945 ARRIVES VIA: Walk-In INFORMANT: Patient, ED PROVIDER(S): Edgar Gomez MD CHIEF COMPLAINT: Weakness HPI: This is a 79-year-old female history of Sjogren's presenting for weakness. Patient is past 5 days she has noted feeling weak, off and somewhat confused. She notes she has been on a steroid taper for her Sjogren's for the past 5 weeks and is on the last week currently. She notes that she does not feel herself. She has been drinking copious amount of water for Sjogren's. Otherwise she has no current nausea, vomiting, abdominal pain, shortness of breath or chest pain. ROS: See above HPI for pertinent positives & negatives. A total of 10 systems reviewed and were otherwise negative. PAST MEDICAL HISTORY: See Below PAST SURGICAL HISTORY: See Below FAMILY HISTORY: See Below SOCIAL HISTORY: See Below HOME MEDICATIONS: See Below ALLERGIES: See Below VITALS: See Below PHYSICAL EXAMINATION: General: resting comfortably in no acute distress Head: Normocephalic and atraumatic Eyes: Normal inspection, extraocular muscles intact Ear, nose, throat: Normal external exam Neck: Normal range of motion Respiratory: lungs clear to auscultation bilaterally Cardiovascular: Regular rate/rhythm, no murmur GI: soft, nontender, no guarding or rebound Extremities: nontender, moves all extremities Neuro: The patient awake and alert, appropriately conversive, no focal deficits, symmetric faces Skin: Warm, dry, and intact MEDICAL DECISION MAKING: This is a 79-year-old female presenting for weakness. Patient is drinking excess water due to her Sjogren's but also has current steroid taper for the past 5 weeks. -Consider upper respiratory infection, pneumonia, electrolyte disturbance, UTI -Labs reviewed showing no significant leukocytosis, slight anemia that is improved from baseline -Otherwise patient hyponatremic to 125, hypochloremic. -Urinalysis reveals no signs of UTI -Chest Xray independently interpreted by me showing no pneumothorax, focal opacity, or pleural effusions. -With patient's current symptomatology, consider hyponatremia is likely source of patient's weakness and confusion. Unclear if this is from polydipsia or the steroid taper causing adrenal insufficiency -Will admit for further workup under Dr. Kuo Differential diagnosis: See above ER treatment provided: See below Independent History obtained from: Daughter, Diagnostics interpreted by me: ECG: ECG independently interpreted by me with normal sinus rhythm, rate of 81, normal axis, normal WI, normal QRS, normal QTc, no ST segment elevations consistent with STEMI criteria Cardiac Monitoring: An order was placed for continuous cardiac monitoring. The monitor shows a rate of 79 with sinus rhythm. Laboratory studies: As stated above and show below. Imaging studies: See below. 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 Reverse TSA 04/2023 [facility]. Squamous cell carcinoma of lymph node Dental decay Nausea and vomiting after administration of anesthetic agent Degenerative disc disease Lumbar area Sjogrens syndrome Follows with [facility] (Dr. Perez) Interstitial cystitis Surgical History Port-A-Cath in place (09/17/23) Insertion Access Port with Fluoroscopy Right Subclavian(Right) - Tobias Augustine DO History of reverse total replacement of right shoulder joint History of radiofrequency ablation (RFA) of nerve of cervical spine C2-C4 nerve ablation (2019) History of knee replacement procedure of right knee S/P knee replacement 12/30/20 Dr. Anshul Bosch at [facility]- Left TKR H/O breast biopsy BENIGN History of colonoscopy History of tooth extraction History of endoscopic sinus surgery History of cataract surgery RT/LEFT History of surgery ovarian wedge resection History of hysteroscopy History of dilation and curettage History of cystoscopy History of appendectomy History of total hip replacement Left CELIO: 06/19/18: SAB x1 attempt at L3-L4 at [facility] Family History Father , 70yo Colorectal cancer Mother , 97yo TIA (transient ischemic attack) Brother No problems noted. Sister Medical history unknown Sister COPD (chronic obstructive pulmonary disease) Sister Breast cancer Sister No problems noted. Sister No problems noted. Sister No problems noted. Daughter No problems noted. Daughter No problems noted. Daughter Twin Thyroid disease Daughter Thyroid disease Twin Denies family history of Ovarian cancer Prostate cancer Myocardial infarction Social History Smoking Status: Former smoker Tobacco Type: Cigarettes Age Started Using Tobacco: 22; Age Quit Using Tobacco: 72; packs per day: 0.5; Cigarettes Per Day: 1/2 PPD x 50 yrs; Second Hand Exposure: No; Do You Dip or Chew Tobacco: No; Hx Alcohol Use: No Hx Substance Use: No Preferred Language: Bhutanese Communication Ability: Effective Visual Impairment: No Limitations Hearing Ability: Normal [employer] Machine Mechanic Required: No Beliefs That Will Affect Care: None marital status: Current Living Situation: Spouse current occupational status: retired current occupation: Nurse How many Children do You have: 4 Feels Safe at Home: Yes Childhood Exposure to Second-Hand Smoke: No Diet: regular caffeine: No during the past year weight has: decreased > 10 lbs Dental Care, Regularly: Yes Physical Activity Frequency: Daily Physical Activity Frequency Comment: PT exercises Seatbelt Use: always Sunscreen Use: Yes Assistive Devices: None Allergies Allergies Allergy/AdvReac Type Severity Reaction Status Date / Time ciprofloxacin Allergy Severe lower Verified 07/02/24 16:03 extremity weakness erythromycin base AdvReac Mild nausea Verified 07/02/24 16:03 levofloxacin AdvReac Mild metal Verified 07/02/24 16:03 taste in mouth morphine AdvReac Mild vomiting Verified 07/02/24 16:03 Home Meds Home Medications Medication Instructions Recorded Confirmed multivitamin 1 tab PO QAM 04/09/19 07/02/24 cholecalciferol (vitamin D3) 125 5,000 units PO QAM 10/13/19 07/02/24 mcg (5,000 unit) capsule Balance Of Nature 1 dose PO QAM 03/05/23 07/02/24 ferrous sulfate 325 mg (65 mg 325 mg PO Q OTHER DAY 02/07/24 07/02/24 iron) tablet magnesium oxide 250 mg PO DAILY 05/14/24 07/02/24 folic acid-vit B6-vit B12 2.5 1 tab PO DAILY 07/02/24 07/02/24 mg-25 mg-2 mg tablet (Folbic) garlic 1,000 mg capsule 1,000 mg PO DAILY 07/02/24 07/02/24 ginseng 250 mg capsule 250 mg PO DAILY 07/02/24 07/02/24 prednisone 10 mg tablet See Rx Instructions .Route .COMPLEX 07/02/24 07/02/24 turmeric 400 mg capsule 400 mg PO DAILY 07/02/24 07/02/24 Previous Rx's Medication Instructions Recorded acetaminophen 325 mg tablet 650 mg (2 x 325 mg) PO Q4H PRN 05/21/23 pain #30 tabs losartan 25 mg tablet 25 mg PO QAM #90 tabs 09/12/23 quetiapine 25 mg tablet (Seroquel) 25 mg PO DAILY #90 tabs 11/11/23 meloxicam 15 mg tablet 15 mg PO QAM #90 tabs 07/03/24 Results & Data (ED) Vital Signs Vital Signs - 24 hr 07/02/24 12:36 07/02/24 16:16 07/02/24 16:30 Pulse Rate 91 H 81 Pulse Rate [Apical] 76 Respiratory Rate 18 18 Respiratory Effort / Characteristics Non-Labored Spontaneous Respiratory Depth Normal Respiratory Pattern Regular Blood Pressure 124/72 Blood Pressure [Right Arm] 106/69 Blood Pressure Mean 89 Blood Pressure Mean [Right Arm] 81 Pulse Oximetry 97 97 Oxygen Delivery Method Room Air Room Air Sepsis Recent Fever Within 48 Hours No Sepsis New/Unexplained Change in Mental Status No Sepsis Action Taken by Nursing No Action Required 07/02/24 17:26 Pulse Rate 79 Pulse Rate [Apical] Respiratory Rate 18 Respiratory Effort / Characteristics Respiratory Depth Respiratory Pattern Blood Pressure 124/70 Blood Pressure [Right Arm] Blood Pressure Mean Blood Pressure Mean [Right Arm] Pulse Oximetry 98 Oxygen Delivery Method Room Air Sepsis Recent Fever Within 48 Hours Sepsis New/Unexplained Change in Mental Status Sepsis Action Taken by Nursing Laboratory Data 07/02/24 Unknown 07/03/24 06:54 Lab Results 07/02/24 07/02/24 Range/Units 16:17 Unknown WBC 8.87 (4.8-10.8) K/ul RBC 3.78 L (4.20-5.40) M/uL Hgb 11.3 L (12.0-16.0) g/dl Hct 33.3 L (37.0-47.0) % MCV 88.1 (80.0-100.0) fL MCH 29.9 (25.0-34.0) pg MCHC 33.9 (32.0-36.0) g/dL RDW Std Deviation 45.5 (36.4-46.3) fL RDW Coeff of Gutierrez 14.4 (11.5-14.5) % Plt Count 242 (130-400) K/uL MPV 8.7 L (9.4-12.4) fL Immature Gran % (Auto) 0.7 % Neut % (Auto) 86.6 % Lymph % (Auto) 4.1 % Sargent % (Auto) 7.2 % Eos % (Auto) 1.1 % Baso % (Auto) 0.3 % Neut # (Auto) 7.68 H (1.40-6.50) K/uL Lymph # (Auto) 0.36 L (1.20-3.40) K/uL Sargent # (Auto) 0.64 H (0.11-0.59) K/uL Eos # (Auto) 0.10 (0.00-0.50) K/uL Baso # (Auto) 0.03 (0.00-0.20) K/uL Immature Gran # (Auto) 0.06 (0.01-0.20) K/uL Sodium 125 L (136-145) mmol/L Potassium 4.3 (3.5-5.1) mmol/L Chloride 92 L (98-107) mmol/L Carbon Dioxide 26 (21-32) mmol/L Anion Gap 7 (3-11) BUN 25 H (6-23) mg/dl Creatinine 0.76 (0.6-1.2) mg/dl Est Cr Clr Drug Dosing Not Reportable Est GFR ( Amer) 86.5 ml/min Est GFR (Non-Af Amer) 74.6 ml/min BUN/Creatinine Ratio 32.9 H (10-20) Glucose 108 H (70-99(Fasting)) mg/dl Calcium 9.4 (8.6-10.3) mg/dl Total Bilirubin 0.3 (0.2-1.0) mg/dl AST 39 (13-39) U/L ALT 57 H (7-52) U/L Alkaline Phosphatase 113 H (34-104) U/L Total Protein 6.4 (6.0-8.3) gm/dl Albumin 3.7 (3.4-5.0) gm/dl Globulin 2.7 (2.5-4.0) gm/dl Albumin/Globulin Ratio 1.4 (0.9-2) Urine Color Yellow Urine Appearance Clear (Clear) Urine pH 5.5 (4.5-7.5) Ur Specific [place] 1.007 (1.000-1.030) Urine Protein Negative (Negative) Urine Glucose (UA) Negative (Negative) Urine Ketones Negative (Negative) Urine Blood Negative (Negative) Urine Nitrite Negative (Negative) Urine Bilirubin Negative (Negative) Urine Urobilinogen Negative (Negative) Ur Leukocyte Esterase Trace H (Negative) Urine WBC (Auto) 0-5 (0-5) /hpf Urine RBC (Auto) 0-2 (0-2) /hpf U Hyaline Cast (Auto) 0-2 (0-2) /lpf U Epithel Cells (Auto) 0-2 (0-2) /hpf Urine Bacteria (Auto) None Seen (None Seen) Administered Medications Discontinued Medications Acetaminophen (Acetaminophen 325 Mg Tab) 650 mg PO Q4H PRN PRN Reason: pain Stop: 08/01/24 18:22 Last Admin: 07/03/24 09:09 Dose: 650 mg Documented By: [id number] Enoxaparin Sodium (Enoxaparin Inj 40 Mg/0.4 Ml Syr) 40 mg SQ Q24H GADIEL Stop: 08/01/24 19:59 Last Admin: 07/02/24 20:14 Dose: 40 mg Documented By: SW Ferrous Sulfate (Ferrous Sulfate 325 Mg Tab) 325 mg PO Q3D@00 GADIEL Stop: 08/02/24 08:59 Last Admin: 07/03/24 08:59 Dose: 325 mg Documented By: [id number] Losartan Potassium (Losartan Potassium 25 Mg Tab) 25 mg PO QAM GADIEL Stop: 08/02/24 08:59 Last Admin: 07/03/24 09:00 Dose: 25 mg Documented By: [id number] Magnesium Oxide (Magnesium Oxide 400 Mg Tab) 400 mg PO DAILY GADIEL Stop: 08/02/24 08:59 Last Admin: 07/03/24 08:59 Dose: 400 mg Documented By: [id number] Meloxicam (Meloxicam 7.5 Mg Tab) 15 mg PO QAM GADIEL Stop: 08/02/24 08:59 Last Admin: 07/03/24 08:59 Dose: 15 mg Documented By: [id number] Miscellaneous (Patient's Height &/Or Weight Needed) 1 each N/A Q2H [facility] Stop: 08/01/24 18:29 Last Admin: 07/03/24 07:13 Dose: Not Given Documented By: [id number] Prednisone (Prednisone 10 Mg Tablet) 10 mg PO QAM [facility] Stop: 07/05/24 09:01 Last Admin: 07/03/24 08:59 Dose: 10 mg Documented By: [id number] Quetiapine Fumarate (Quetiapine Fumarate 25 Mg Tablet) 25 mg PO HS [facility] Stop: 08/01/24 20:59 Last Admin: 07/02/24 21:30 Dose: 25 mg Documented By: RE Sennosides (Senna 8.6 Mg Tab) 17.2 mg PO QPM GADIEL Stop: 08/01/24 20:59 Last Admin: 07/02/24 20:14 Dose: 17.2 mg Documented By: RE Vitamin D (Cholecalciferol 125 Mcg (5,000 Units) Tab) 125 mcg PO QAM GADIEL Stop: 08/02/24 08:59 Last Admin: 07/03/24 09:00 Dose: 125 mcg Documented By: [id number] Imaging Data Radiologist's Impression: Chest X-Ray 07/02/24 15:18 XR chest 1V portable HISTORY: Shortness of breath. COMPARISON: Chest 09/17/2023. FINDINGS: Right Port-A-Cath terminates in the SVC. There is a right shoulder prosthesis. No evidence for pulmonary edema. The heart is normal in size. Calcifications within the aortic knob. Mild emphysema. Left upper lobe mild interstitial thickening, unchanged. This is likely chronic. No new focal lung consolidations to suggest a pneumonia. IMPRESSION: No significant change compared to the prior study. No acute process. ACT 112: Negative or not required by law. Electronically signed by: Brendon Rodríguez M.D. 07/02/2024 3:46 PM Discharge Plan Visit Data Chief Complaint: Weakness Stated Complaint: WEAK ED Provider: Edgar Gomez Discharge Problem: Acute hyponatremia, Weakness, Sjogren syndrome Patient Disposition: Admitted As Inpatient Discharge Instructions Interventions: ED Discharge Assessment Last Done: 07/02/24 17:26
[2024-07-02] MEDS ORDERED: ONDANSETRON INJ 2 MG/ML 2 ML VIAL IV PRN (18:23)
[2024-07-02] MEDS ORDERED: Nursing to Pharmacy Communication SCH (19:45)
[2024-07-02] MEDS: ENOXAPARIN INJ 40 MG/0.4 ML SYR SQ SCH (20:14)
[2024-07-02] MEDS: SENNA 8.6 MG TAB PO SCH (20:14)
[2024-07-02 20:20] VITALS: RESP 16
[2024-07-02] MEDS: QUEtiapine FUMARATE 25 MG TABLET PO SCH (21:30)
[2024-07-03] MEDS: Patient's HEIGHT &/or WEIGHT Needed SCH (07:13)
[2024-07-03 08:15] LABS: BUN Creatinine Ratio 26.9 (10-20); Calcium 9.8 mg/dl (8.6-10.3); Creatinine Clr Calc Pharmacy 48.4 ml/min; Est GFR (African American) 83.8 ml/min; Est GFR (Non-African American) 72.3 ml/min; Potassium 4.3 mmol/L (3.5-5.1)
[2024-07-03 08:29] VITALS: TEMP 98.1; O2SAT 96
[2024-07-03] MEDS: MAGNESIUM OXIDE 400 MG TAB PO SCH (08:59)
[2024-07-03] MEDS: predniSONE 10 MG TABLET PO SCH (08:59)
[2024-07-03] MEDS: MELOXICAM 7.5 MG TAB PO SCH (08:59)
[2024-07-03] MEDS: FERROUS SULFATE 325 MG TAB PO SCH (08:59)
[2024-07-03] MEDS: LOSARTAN POTASSIUM 25 MG TAB PO SCH (09:00)
[2024-07-03] MEDS ORDERED: QUEtiapine FUMARATE 25 MG TABLET PO SCH (09:00)
[2024-07-03] MEDS: CHOLECALCIFEROL 125 MCG (5,000 UNITS) TAB PO SCH (09:00)
[2024-07-03] MEDS: ACETAMINOPHEN 325 MG TAB PO PRN (09:09)
[2024-07-03 10:23] LABS: Thyroid Stimulating Hormone 1.689 uIu/ml (0.300-4.500)
[2024-07-03 12:40] VITALS: BP 106/69; PULSE 76
--- NOTE | 2024-07-03 17:11 | Discharge Summary ---
Discharge Summary Date of Service July 03, 2024 Principal Dx & Hospital Course #1 = Principal Diagnosis (1) Hyponatremia: 79 y/o with Sjogren's syndrome on prednisone taper and history of CY chest radiation for cancer this spring admitted with acute on chronic hyponatremia. Usual sodium high 120s-130, admitted with sodium 125 and symptoms of weakness, nausea, headache. Appeared euvolemic on exam. Serum osms low normal, urine osms dilute, urine s odium equivocal at 29. AM cortisol 10 and TSH normal. 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 She has also been avoiding salt because her mouth has been burning. Sodium improved to 131 with gentle fluid restriction overnight, regular salt diet. Plan: Continue regular salt diet and gentle fluid restriction Continue her protein supplement - taking 20-30g tid which helps with water diuresis She has appt later this week with oncology, please obtain BMP on follow up she has ongoing fatigue unclear cause, plans to start and outpatient physical therapy program soon TSH was normal and she denies any problems with low mood or depression (2) Sjogren syndrome with keratoconjunctivitis: - Currently on tapered prednisone dose; tapered from 50 mg wit a decrease of 10 mg each week over 5 weeks - on cevimeline at home, Biotene (3) Non-small cell carcinoma of lung: - in remission February 2024; chemotherapy and radiation (4) Iron deficiency anemia: - Patient recently decreased iron supplement from every other day to every 3 days due to ongoing constipation - Hgb at baseline on admission, 11.3 - continue with iron supplement Q3D (5) Constipation: - Patient with ongoing constipation - Due to iron supplement, patient recently decreased dose to every 3 days - patient takes 2 senna pills prn Plan Chronic stable diagnoses: OA: continue tramadol as needed and meloxicam HTN: stable, continue home losartan Osteopenia: continue with Vit D Notes For Next Care Provider please check BMP on follow up next week Medication Changes From Visit none Admission HPI Per Admitting Provider Patient is a 79 yo female with a past medical history of non-small cell lung cancer in remission, Sjogren's syndrome, osteopenia, osteoarthritis, hypertension, and iron deficiency anemia. Patient presented today with ongoing weakness for the past 5 days. She stated that she thought it was due to a decrease in her red blood cells. She recently decreased her dose of iron from every other day to every 3 days due to ongoing constipation. She stated that she wakes up every morning and just feels weak. She has been taking her vital signs every morning and 2 days ago and showed a oxygen level of 86%, otherwise have been stable. She did have a headache this morning that has since subsided. She denies recent head trauma and seizures. She denies confusion, numbness, tingling, swelling, nausea, and vomiting. She stated that she does drink a lot of water due to her Sjogren's syndrome. She stated that she has been constipated recently; her last bowel movement was last night. She takes 2 Senokot per day. She took an enema last week. She believes this is due to her iron supplement and has recently decreased it . Patient's small cell lung cancer in remission, chemo and radiation completed in February 2024. Patient is currently on a prednisone taper for her Sjogren's syndrome; she was to be tapered from 50 mg decrease by 10 mg each week over 5 weeks. Patient currently has 3 days left of her 10 mg dose. Patient denies current headache, vision changes, diarrhea, sore throat, chest pain, shortness of breath, abdominal pain, nausea, vomiting, diarrhea, numbness, tingling, and swelling. Patient denies history of COPD or asthma. She used to be a former smoker but quit in 2018, 30+ pack year history. Patient denies alcohol use. She wishes to be full code at this time. Discharge Exam PHYSICAL EXAMINATION Last 24h vital signs reviewed, see documentation in flowsheet General: comfortable appearing, no distress, sitting up in her chair eating lunch HEENT: Normocephalic, atraumatic, pupils round and equal, sclerae anicteric, no conjunctival injection, moist mucus membranes Lungs: Normal respiratory effort. Heart: deferred Abdomen: nondistended Extremities: Warm, dry, well-perfused. No extremity edema. Neuro: Alert and oriented x 4, face symmetric, moves 4 extremities well Psych: Normal affect and behavior Discharge Plan Discharge Items Patient Disposition: Home - Self-Care Reason For Visit: HYPONATREMIA Discharge Diagnosis: hyponatremia Activity: Resume your previous activity Non-emergency contact: Primary Care Provider Call non-emergency contact if: you have any medication questions, your symptoms worsen and you have a fever Follow-up/Referrals: Ankit Guerrier III, CRNP [Primary Care Provider] - 07/13/24 3:00 pm (NEW LOCATION) Diet: Regular Fluids: 1800ml (7 cups) Addtl Attending Provider Instructions: You were treated for moderately low blood sodium (hyponatremia) You normally tend to have a mild/moderately low blood sodium but yesterday it was worse than normal You likely have a common condition called SIADH that affects salt and water balance in your body. This could be related to your history of lung radiation and/or exacerbated by the prednisone taper. Your thyroid and cortisol levels were normal. -follow a normal salt diet, don't restrict salt intake -limit the amount of fluid you drink - the usual guideline is around 1800 mL per day. drinking too much fluid will drive your blood sodium down too low -keep taking your protein supplement - this will help your body handle salt and water better ask Dr. Velazquez or Dr. Guerrier to order a blood draw to recheck the sodium level It was a pleasure taking care of you in the hospital Amanda Milligan MD Pending Studies at Discharge: No Stand-Alone Forms: My [facility] I Love QC, Smoking Cessation Medications and DC Order Prescriptions: Continued magnesium oxide 400 mg magnesium capsule 250 mg PO DAILY losartan 25 mg tablet 25 mg PO QAM Qty: 90 3RF quetiapine [Seroquel] 25 mg tablet 25 mg PO DAILY Qty: 90 3RF multivitamin tablet 1 tab PO QAM Patient Comments: TAKES QAM cholecalciferol (vitamin D3) 5,000 unit capsule 5,000 units PO QAM Patient Comments: TAKES QAM ferrous sulfate 325 mg (65 mg iron) tablet 325 mg PO Q OTHER DAY acetaminophen 325 mg Tablet 650 mg PO Q4H PRN (Reason: pain) Qty: 30 0RF Rx Instructions: OTC Balance Of Nature 1 dose PO QAM prednisone 10 mg tablet See Rx Instructions .ROUTE .COMPLEX Rx Instructions: Take 50mg by mouth daily x 5 days; 40mg x 5 days; 30mg x 5 days; 20mg x 5 da ys; 10mg x 5 days (pt currently on day 2 of 10mg dose) garlic 1,000 mg Capsule 1,000 mg PO DAILY Folbic 2.5-25-2 mg tablet 1 tab PO DAILY ginseng 250 mg Capsule 250 mg PO DAILY turmeric 400 mg Capsule 400 mg PO DAILY No Action meloxicam 15 mg tablet 15 mg PO QAM Qty: 90 0RF Discharge Orders: Discharge Order (Routine); Ordered 07/03/24 Ordered By: Amanda Mendez/Other Patient Handouts: Hyponatremia Dc, ED Hyponatremia Admission Data Admit Date/Time: 07/02/24 16:14 Attending Provider: Amanda Milligan Admit Provider: Ross Barker Primary Care Provider: Ankit Guerrier III Other Providers: Hang Kuo Other Interventions: Discharge Summary Assessment (RN) Last Done: 07/03/24 12:40 Hospital Stay Data Consultations 07/02/24 16:48 ED Decision to Admit Stat Pending Results Patient Have Any Pending Studies at Discharge: No Discharge Instructions Given to Patient (Per Discharging Provider) You were treated for moderately low blood sodium (hyponatremia) You normally tend to have a mild/moderately low blood sodium but yesterday it was worse than normal You likely have a common condition called SIADH that affects salt and water balance in your body. This could be related to your history of lung radiation and/or exacerbated by the prednisone taper. Your thyroid and cortisol levels were normal. -follow a normal salt diet, don't restrict salt intake -limit the amount of fluid you drink - the usual guideline is around 1800 mL per day. drinking too much fluid will drive your blood sodium down too low -keep taking your protein supplement - this will help your body handle salt and water better ask Dr. Velazquez or Dr. Guerrier to order a blood draw to recheck the sodium level It was a pleasure taking care of you in the hospital Amanda Milligan MD Total Time Total Time Spent Total Time Spent (In Minutes): <30 Coding Level of Care Code 23538 IN/OBS DISCH 30 MIN/LESS Diagnoses Hyponatremia E87.1 Sjogren syndrome with keratoconjunctivitis M35.01 Non-small cell carcinoma of lung C34.90 Iron deficiency anemia D50.9 Constipation K59.00
== END 2024-07-03 13:27 | disposition home or self-care (01) | DRG 644 ==
LOC: ED 12:24 → SUATTDRO 16:14 → 3N 16:14
DX: Z88.5 Allergy status to narcotic agent; Z92.3 Personal history of irradiation; Z86.16 Personal history of COVID-19; M85.80 Other specified disorders of bone density and structure, unspecified site; Z88.1 Allergy status to other antibiotic agents; E22.2 Syndrome of inappropriate secretion of antidiuretic hormone; I10 Essential (primary) hypertension; T38.0X5A Adverse effect of glucocorticoids and synthetic analogues, initial encounter; Z87.891 Personal history of nicotine dependence; C34.90 Malignant neoplasm of unspecified part of unspecified bronchus or lung; D50.9 Iron deficiency anemia, unspecified; M19.90 Unspecified osteoarthritis, unspecified site; Z79.82 Long term (current) use of aspirin; R63.1 Polydipsia; M35.01 Sjogren syndrome with keratoconjunctivitis; E78.00 Pure hypercholesterolemia, unspecified; K59.00 Constipation, unspecified